=== PATIENT | female | born 1960 | race Caucasian/White ===

== ENCOUNTER → 2023-06-18 | Outpatient (CLI) | payer OTHER, SELFPAY ==
[2023-06-18 11:59] LABS: Absolute Lymphocyte Count 2.57 X10^3/uL (0.83-4.51); Absolute Neutrophil Count 3.7 X10^3/uL (2.0-7.7); Basophil# 0.08 X10^3/uL; Basophil% 1.1 % (0-1); Eosinophil# 0.31 X10^3/uL; Eosinophils% 4.2 % (0-5); Hematocrit 45.9 % (37-47); Hemoglobin 14.8 g/dL (12.0-15.0); Lymphocyte # 2.57 X10^3/ul (0.83-4.51); Lymphocyte % 34.6 % (19-41); Mean Corp Hgb Conc 32.2 g/dL (32-36); Mean Corpuscular Hgb 33.9 pg (27.0-32.0); Mean Corpuscular Volume 105.3 fL (81-99); Mean Platelet Vol. 10.9 fl (6.2-12.0); Monocyte# 0.75 X10^3/uL; Monocyte% 10.1 % (0-10); NRBC Flagged by Analyzer 0 % (0-5); Neutrophil % 49.7 % (47-70); Platelet Count 244 K/mm3 (150-450); RBC Distribution Width CV 13.8 % (11.6-14.6); RBC Distribution Width SD 54.3 fl (35.1-43.9); Red Blood Count 4.36 M/mm3 (4.2-5.4); White Blood Count 7.4 K/mm3 (4.4-11.0)
[2023-06-18 12:49] LABS: ALB/GLOB Ratio 0.9 RATIO (0.9-2.4); AST(SGOT) 30 U/L (15-37); Alanine Aminotransfer ALT/SGPT 33 U/L (13-56); Albumin, Serum 3.7 g/dL (3.2-5.0); Alkaline Phosphatase 59 U/L (45-117); Anion Gap 7 (5-15); BUN 18 mg/dL (7-18); BUN/Creat Ratio 23.1 RATIO (10-20); Calcium,Total 9.2 mg/dL (8.5-10.1); Chloride 109 mmol/L (98-107); Cholesterol 182 mg/dL (200); Creatinine, Serum 0.78 mg/dL (0.55-1.02); EST Glomerular Filtration Rate 79 mL/min (>60); Est Glom Filt Rate - Afr Amer 96 mL/min (>60); Globulin 4.2 g/dL (2.2-4.2); Glucose 118 mg/dL (74-106); High Density Lipoprotein 70 mg/dL; Magnesium 2.2 mg/dL (1.6-2.6); Potassium 4.3 mmol/L (3.5-5.1); Protein, Total 7.9 g/dL (6.4-8.2); Sodium Level 140 mmol/L (136-145); Triglycerides 326 mg/dL; Very Low Density Lipoprotein 65 mg/dL (5-40)
== END | disposition home or self-care (01) ==
LOC: BIMLAB 08:32
PROVIDERS: PCP Internal Medicine; Referring Provider Internal Medicine; Visit Provider Internal Medicine
DX: M79.661 Pain in right lower leg (principal); Z13.6 Encounter for screening for cardiovascular disorders
CPT/HCPCS: 36415; 80053; 80061; 83735; 85025

== ENCOUNTER → 2023-07-13 | Outpatient (CLI) | payer OTHER, SELFPAY ==
--- NOTE | 2023-07-13 14:53 | ART_ITS ---
Reason For Study: calf pain Procedure A bilateral lower extremity continuous wave Doppler with analog waveform analysis and ankle brachial indexes. Prelim called to [facility] at Dr. Rosas's office. Left Segmental Pressures Left brachial= 194mmHg. Left posterior tibial artery = 175mmHg. Left dorsalis pedis artery = 190mmHg. The left dorsalis pedis waveforms are biphasic. The left posterior tibial artery waveforms are biphasic. Right Segmental Pressures Right brachial= 199mmHg. Right posterior tibial artery = 97mmHg. Right dorsalis pedis artery = 100mmHg. The right dorsalis pedis waveforms are monophasic. The right posterior tibial artery waveforms are monophasic. Indices The right ankle brachial index by the posterior tibial artery is .49. The right ankle brachial index by the dorsalis pedis is .5. The left ankle brachial index by the posterior tibial artery is .88. The left ankle brachial index by the dorsalis pedis is .95. VL/Ankle Brachial Index Interpretation Summary Right CARLEY 0.5, severe arterial insufficiency. Doppler/PVR waveforms of the righ t ankle severely diminished at rest. Left CARLEY 0.95, mild arterial insufficiency. Doppler/PVR waveforms of the left a nkle mildly diminished at rest. Ordering Physician: Kaleigh Rosas Performed By: Mueksh Palacios, RVT
== END | disposition home or self-care (01) ==
PROVIDERS: PCP Internal Medicine; Referring Provider Internal Medicine; Visit Provider Internal Medicine
DX: M79.661 Pain in right lower leg (principal)
CPT/HCPCS: 93922

== ENCOUNTER 2023-12-16 16:43 | Observation (INO) | payer OTHER, SELFPAY ==
[2023-12-16 16:44] VITALS: BP 183/95; PULSE 87; RESP 18; TEMP 37.1; O2SAT 98; BMI 16.5
[2023-12-16 17:24] LABS: Absolute Lymphocyte Count 1.47 X10^3/uL (0.83-4.51); Absolute Neutrophil Count 13.3 X10^3/uL (2.0-7.7); Basophil# 0.07 X10^3/uL; Basophil% 0.4 % (0-1); Eosinophil# 0.04 X10^3/uL; Eosinophils% 0.3 % (0-5); Hematocrit 39.9 % (37-47); Hemoglobin 13.1 g/dL (12.0-15.0); Lymphocyte # 1.47 X10^3/ul (0.83-4.51); Lymphocyte % 9.3 % (19-41); Mean Corp Hgb Conc 32.8 g/dL (32-36); Mean Corpuscular Hgb 33.4 pg (27.0-32.0); Mean Corpuscular Volume 101.8 fL (81-99); Mean Platelet Vol. 10.6 fl (6.2-12.0); Monocyte# 0.84 X10^3/uL; Monocyte% 5.3 % (0-10); NRBC Flagged by Analyzer 0 % (0-5); Neutrophil # 13.33 X10^3/uL (2.7-7.7); Neutrophil % 84.3 % (47-70); Platelet Count 232 K/mm3 (150-450); RBC Distribution Width CV 13.7 % (11.6-14.6); RBC Distribution Width SD 51.3 fl (35.1-43.9); Red Blood Count 3.92 M/mm3 (4.2-5.4); White Blood Count 15.8 K/mm3 (4.4-11.0)
[2023-12-16 17:33] LABS: AST(SGOT) 25 U/L (15-37); Alanine Aminotransfer ALT/SGPT 34 U/L (13-56); Albumin, Serum 3.9 g/dL (3.2-5.0); Alkaline Phosphatase 65 U/L (45-117); Anion Gap 10 (5-15); BUN 20 mg/dL (7-18); BUN/Creat Ratio 23.2 RATIO (10-20); Calcium,Total 9.5 mg/dL (8.5-10.1); Chloride 105 mmol/L (98-107); Creatinine, Serum 0.86 mg/dL (0.55-1.02); EST Glomerular Filtration Rate 70 mL/min (>60); Est Glom Filt Rate - Afr Amer 85 mL/min (>60); Estimated Creatinine Clearance 47.13 ml/min; Globulin 3.8 g/dL (2.2-4.2); Glucose 110 mg/dL (74-106); Potassium 3.9 mmol/L (3.5-5.1); Protein, Total 7.7 g/dL (6.4-8.2); Sodium Level 138 mmol/L (136-145)
[2023-12-16 18:44] VITALS: BP 149/117; PULSE 90; RESP 17; TEMP 36.3; O2SAT 100
[2023-12-16 20:00] VITALS: BP 124/93; PULSE 121; RESP 18; O2SAT 98
--- NOTE | 2023-12-16 20:12 | CT_ITS ---
STUDY: CT ABDOMEN AND PELVIS WITH CONTRAST REASON FOR EXAM: Female, 63 years old. abdominal pain RADIATION DOSAGE (If Supplied By Facility): CTDIvol = ( 8.08 ) mGy, DLP = ( 285.40 ) mGycm TECHNIQUE: Transaxial images were obtained from the dome of the diaphragm to the symphysis pubis without oral contrast. IV 75mL Isovue-370 was administered. Sagittal and coronal images were reconstructed. Individualized dose optimization techniques were used for this CT. COMPARISON: None. FINDINGS: Small calcified granuloma in right lower lobe. The visualized portions of the heart are within normal limits. Mild ascites within the right subphrenic and left subphrenic spaces Normal liver. Normal gallbladder and extrahepatic biliary system. Normal spleen. Normal pancreas. Normal bilateral adrenal glands. Normal right kidney. Normal left kidney. Normal visualized stomach. There is concentric thickening of the delgado of multiple loops of mid to distal small bowel with thickening of the folds in association with an ahaustral appearance of the ascending and transverse colon most consistent with ileocolitis possibly Crohn''s disease. There is mild diffuse mesenteric edema and small amount of ascites within the right paracolic gutter and to a lesser extent on the left . There is mild dilatation of the appendix and the possibility of early changes of acute appendicitis not entirely excluded Atherosclerotic changes of the aorta without evidence for aneurysm. Normal inferior vena cava. Normal retroperitoneum. Normal urinary bladder. Normal abdominal wall. Lumbar spine demonstrates degenerative change. Grade 1 spondylolisthesis at L4-5 CT/Abdomen/Pelvis W IV Cont ONLY IMPRESSION: Findings which are most consistent with the ileal colitis possibly Crohn''s disease with associated mild mesenteric edema and ascites The appendix appears mildly dilated and coexisting early changes of acute appendicitis cannot be entirely excluded Clinical correlation is recommended Electronically Signed: Delgado Simpson MD at 21:39 EDT ,
--- NOTE | 2023-12-16 20:20 | EDS_ITS ---
HPI History of Present Illness Chief Complaint: Abd Pain Narrative Narrative: Chief complaint and HPI: Abdominal pain. 63-year-old female with history of HTN, CKD, tobacco abuse, PAD presents for evaluation of abdominal pain. Patient states for the past week she has had intermittent diarrhea. She states this morning she woke up with abdominal pain that has progressively worsened. She endorses nausea and vomiting. Describes the pain as cramping. Located mostly in the lower abdomen. Denies any URI symptoms, chest pain, shortness of breath, dysuria, hematuria. Denies any bloody bowel movements. Endorses decreased p.o. intake. Not on blood thinners. Denies any abdominal surgeries. Review of systems: See HPI Medications: As listed on the chart Allergies: As listed on the chart PFSH: Per chart Vital signs: As listed on the chart. Reviewed. Physical exam: Gen: A&O x3 Head: Normocephalic, atraumatic Eyes: No sclera icterus, conjunctiva clear ENT: Dry mucous membranes Neck: Trachea midline, No JVD CV: RRR, no murmurs, no peripheral edema Resp: Lungs CTA BL, no w/r/c GI: Abd soft, non-distended, tender to palpation in the bilateral lower quadrant, + voluntary guarding, no rebound or rigidity Musc: Full ROM, no deformity Skin: Warm, dry Neuro: Alert, oriented, grossly intact, sensation intact Psych: Cooperative [facility] Medical History CKD (chronic kidney disease), stage II Heavy alcohol use Tobacco use Hypertension Atherosclerosis of right lower extremity with intermittent claudication Left carotid bruit PAD (peripheral artery disease) Gout Home Medications ?Medication ?Instructions ?Recorded ?Last Taken ?Type B-complex with vitamin C 1 cap PO DAILY 06/16/23 Unknown History calcium carbonate (Calcium 600) 600 mg PO DAILY 06/16/23 Unknown History potassium chloride 20 mEq oral 20 meq PO DAILY 06/16/23 Unknown History packet aspirin 81 mg tablet,delayed 81 mg PO DAILY #30 tabs 07/29/23 Unknown Rx release (Adult Aspirin Regimen) ibuprofen 200 mg tablet 400 mg PO Q6H PRN pain 07/29/23 Unknown History lisinopril 10 mg tablet 10 mg PO DAILY #90 tabs 09/23/23 Unknown Rx rosuvastatin 20 mg tablet 20 mg PO DAILY #30 tabs 10/20/23 Unknown Rx Allergy/AdvReac Type Severity Reaction Status Date / Time No Known Allergies Allergy Verified 12/16/23 16:44 Family History Grandmother Diabetes Mother Kidney disease Heart disease Father Heart disease Surgical History No pertinent past surgical history Social History (Updated 12/17/23 @ 00:[address] Samreen Dunham MD) household members: spouse housing: house current occupational status: employed current occupation: [employer] Smoking Status: Current every day smoker tobacco type: cigarettes Tobacco: How many years used: 44 Electronic Cigarette Use: not used alcohol intake: current alcohol intake frequency: 0-2 drinks per day Alcohol type: hard liquor details: Drinks 2 vodka drinks daily, potentially more. substance use type: does not use what type of physical activity do you participate in: walking and weight training frequency: 3-4 times per week seatbelt use: always do you feel safe at home: Yes EXAM Physical Exam Const Vital Signs: 12/16/23 16:44 12/16/23 18:44 12/16/23 20:00 Temperature 98.7 F 97.3 F L Temperature Source Temporal Oral Pulse Rate 87 90 121 H Respiratory Rate 18 17 18 Blood Pressure 183/95 H 149/117 H 124/93 H Blood Pressure Mean 124 127 103 Pulse Ox 98 100 98 Oxygen Delivery Method Room Air Room Air Room Air 12/16/23 22:00 12/16/23 23:30 12/16/23 23:45 Temperature Temperature Source Pulse Rate 98 79 83 Respiratory Rate 30 H 24 H 21 H Blood Pressure 112/81 H 111/76 114/73 Blood Pressure Mean 91 87 86 Pulse Ox 96 98 96 Oxygen Delivery Method 12/17/23 00:00 Temperature Temperature Source Pulse Rate 80 Respiratory Rate 26 H Blood Pressure 121/68 H Blood Pressure Mean 84 Pulse Ox 96 Oxygen Delivery Method MDM MDM MDM Narrative Medical decision making narrative: 63-year-old female presents for evaluation of abdominal pain, diarrhea, nausea/vomiting. She is tender to palpation on physical exam with positive guarding. Differential diagnosis includes but is not limited to gastroenteritis, diverticulitis, appendicitis, pancreatitis, viral illness, UTI, electrolyte abnormality, BLANK. NS bolus, morphine, Zofran ordered for symptoms. Abdominal pain workup ordered including CT abdomen and pelvis. CBC with a leukocytosis of 15.8. No anemia. CMP without electrolyte abnormality or BLANK. Lactic acidosis 3.6. Patient receiving fluids. No transaminitis. Lipase unremarkable. UA positive for ketones but negative for UTI. CT abdomen pelvis shows findings most consistent with ileocolitis possibly Crohn's disease. Patient has no history of inflammatory bowel disease. There is associated mild mesenteric edema and ascites. The appendix appears mildly dilated and coexisting early changes of acute appendicitis cannot be entirely excluded. Given these findings, Zosyn started as well as another NS bolus. General surgery was contacted given the patient's findings on CT. I spoke with Dr. Barkley. Agrees with colitis however cannot officially rule out mesenteric ischemia especially with patient's abdominal pain and lactic acidosis. Recommended transfer with continued monitoring with surgery and GI. Patient was updated of all results and findings. She confirmed understanding. [facility] transfer line was contacted and patient was discussed. They would like opinion of general surgery given that no beds are available in their hospital at this time. I spoke with general surgeon Dr. Norman. Given the bed situation at [facility], she would like me to talk to our general surgeon to see if patient can be admitted here with transfer at a future date if needed. I recontacted Dr. Barkley, she is okay with medical admission at [place] as long as lactic acid and abdominal pain is improving. She would like me to get the opinion of radiology on possible mesenteric ischemia. Radiology was contacted and imaging was discussed. Patient is a vasculopath however no concerns for mesenteric ischemia at this time given that celiac and SMA appear patent. On reevaluation, patient's abdominal pain is improving. Her lactic acid has resolved. Patient was discussed with Dr. Bella with the hospitalist. She excepted admission. She did update Dr. Barkley on all the results. Impression: 1. Ileocolitis 2. Mild mesenteric edema and ascites 3. Possible early appendicitis 4. Lactic acidosis, resolved 5. Dehydration Lab Data Labs: Laboratory Results - last 24 hr 12/16/23 12/16/23 12/16/23 17:02 20:25 21:25 WBC 15.8 H RBC 3.92 L Hgb 13.1 Hct 39.9 MCV 101.8 H MCH 33.4 H MCHC 32.8 RDW Std Deviation 51.3 H RDW Coeff of Divya 13.7 Plt Count 232 MPV 10.6 Immature Gran % (Auto) 0.400 Neut % (Auto) 84.3 H Lymph % (Auto) 9.3 L Caroline % (Auto) 5.3 Eos % (Auto) 0.3 Baso % (Auto) 0.4 Absolute Neuts (auto) 13.3 H Absolute Lymphs (auto) 1.47 Nucleated RBC % 0 Sodium 138 Potassium 3.9 Chloride 105 Carbon Dioxide 23.0 Anion Gap 10 BUN 20 H Creatinine 0.86 Estim Creat Clear Calc 47.13 Est GFR (MDRD) Af Amer 85 Est GFR (MDRD) Non-Af 70 BUN/Creatinine Ratio 23.2 H Glucose 110 H Lactic Acid 3.6 H* Calcium 9.5 Phosphorus 3.3 Magnesium 1.6 Total Bilirubin 0.50 AST 25 ALT 34 Alkaline Phosphatase 65 Total Protein 7.7 Albumin 3.9 Globulin 3.8 Albumin/Globulin Ratio 1.0 Lipase 27 Urine Color Yellow Urine Clarity Clear Urine pH 6.0 Ur Specific [place] 1.010 Urine Protein 15 H Urine Glucose (UA) Normal Urine Ketones 15 H Urine Occult Blood Negative Urine Nitrite Negative Urine Bilirubin Negative Urine Urobilinogen Normal Ur Leukocyte Esterase 25 H Urine RBC 0 SEEN Urine WBC 0-5 SEEN Ur Squamous Epith Cells 0 SEEN Urine Bacteria 0 SEEN Urine Mucus 0 SEEN 12/16/23 23:28 WBC RBC Hgb Hct MCV MCH MCHC RDW Std Deviation RDW Coeff of Divya Plt Count MPV Immature Gran % (Auto) Neut % (Auto) Lymph % (Auto) Caroline % (Auto) Eos % (Auto) Baso % (Auto) Absolute Neuts (auto) Absolute Lymphs (auto) Nucleated RBC % Sodium Potassium Chloride Carbon Dioxide Anion Gap BUN Creatinine Estim Creat Clear Calc Est GFR (MDRD) Af Amer Est GFR (MDRD) Non-Af BUN/Creatinine Ratio Glucose Lactic Acid 1.1 Calcium Phosphorus Magnesium Total Bilirubin AST ALT Alkaline Phosphatase Total Protein Albumin Globulin Albumin/Globulin Ratio Lipase Urine Color Urine Clarity Urine pH Ur Specific [place] Urine Protein Urine Glucose (UA) Urine Ketones Urine Occult Blood Urine Nitrite Urine Bilirubin Urine Urobilinogen Ur Leukocyte Esterase Urine RBC Urine WBC Ur Squamous Epith Cells Urine Bacteria Urine Mucus Radiography Diagnostic Testing: Clinical Impression(s) from Imaging Studies Abdomen/Pelvis CT 12/16/23 20:12 IMPRESSION: Findings which are most consistent with the ileal colitis possibly Crohn''s disease with associated mild mesenteric edema and ascites The appendix appears mildly dilated and coexisting early changes of acute appendicitis cannot be entirely excluded Clinical correlation is recommended Electronically Signed: Delgado Simpson MD at 21:39 EDT Reading Location ID and State: [facility] / [place] Tel , Service support , Discharge Plan Disposition Disposition: Acute Care Hospital [facility] Discharge Date/Time: 12/17/23 01:38
[2023-12-16] MEDS: 0.9% Normal Saline (1000mL) 1,000 ML 1000 ML IV (20:22)
[2023-12-16] MEDS: Ondansetron 4 MG/2 ML Vial IV (20:23)
[2023-12-16] MEDS: Morphine 4 MG/ML Syringe IV ×2 (20:23→22:36)
[2023-12-16 20:46] LABS: Lipase 27 U/L (13-75)
[2023-12-16 21:01] LABS: Lactic Acid 3.6 mmol/L (0.4-1.9)
[2023-12-16 21:35] LABS: Bacteria 0 SEEN /hpf (None Seen); Mucous, Urine 0 SEEN /hpf (<or=2+); Red Blood Cells-Urine 0 SEEN /hpf (0-5); Squamous Epithelial Cells - UA 0 SEEN /hpf (5-10)
[2023-12-16 21:45] LABS: Color, Urine Yellow (Yellow); Glucose, Dipstick Normal (Normal); Ketone-Dipstick 15 mg/dl (Negative); Leukocyte Esterase-Dipstick 25 /ul (Negative); Nitrite-Dipstick Negative (Negative); Occult Blood-Urine Negative /ul (Negative); Protein-Dipstick 15 mg/dl (Negative); Urine Bilirubin Dipstick Negative (Negative); Urine Clarity Clear (Clear); Urine Urobilinogen Normal (Normal)
[2023-12-16 21:54] LABS: White Blood Cells 0-5 SEEN /hpf (0-5)
[2023-12-16 22:00] VITALS: BP 112/81; PULSE 98; RESP 30; O2SAT 96
[2023-12-16] MEDS: Piperacil/Tazobactam 3.375 GM in 0.9% Normal Saline (50mL MB+) 50 ML IV (22:36)
[2023-12-16] MEDS: 0.9% Normal Saline (1000mL) 1,000 ML 999 ML IV (23:22)
[2023-12-16 23:30] VITALS: BP 111/76; PULSE 79; RESP 24; O2SAT 98
[2023-12-16 23:45] VITALS: BP 114/73; PULSE 83; RESP 21; O2SAT 96
[2023-12-16 23:57] LABS: Lactic Acid 1.1 mmol/L (0.4-1.9)
[2023-12-17] VITALS (8 sets, daily range): BP systolic 119–159; BP diastolic 68–94; PULSE 79–97; RESP 15–26; TEMP 36.6–37.3; O2SAT 95–98; BMI 16.5
--- NOTE | 2023-12-17 00:12 | HP.PCM.HOS_ITS ---
HPI - General General Date of Admission: 12/17/23 Date of Service: 12/17/23 Chief Complaint: Abdominal pain. HPI Narrative The patient is a 63 y/o F w/ PMHx: Tobacco use, Heavy EtOH use/EtOH abuse, HTN, CKD stage II per GFR trending, Known L carotid bruit w/ pending carotid US outpatient, RLE PAD, Gout, Severe protein calorie malnutrition who presents to the [facility] ED initially on 12/16/23 with history of abdominal discomfort with intermittent diarrhea over the last week awaking on morning on day prior with pain which is since worsened with associated nausea and emesis more tender in the bilateral lower quadrants with no rebound or guarding prompting eventual ED evaluation to be cautious. Patient reporting pain 7/10 in severity and noted to have initially reported 8/10 in severity initially upon ED arrival. Workup in the ED included T98.7, heart rate 87, BP 193/95, respiratory rate 18, 90% on room air with transient heart rate increased to 121 with most recent repeat vitals heart rate 98, BP 112/81, respiratory rate 30, 96% on room air, CBC with WBC 15.8, human 13.1, platelet 232 with left shift, CMP with BUN/creatinine 20/0.86, GFR 70, glucose 110, hepatic profile not marked appearing, lipase 27, lactic acid initial 3.6 with repeat lactic acid 1.1, urinalysis not marked appearing, CT abdomen and pelvis with contrast with concentric thickening of the delgado of multiple loops of mid to distal small bowel with thickening of the folds in association with an a hostile appearance of the ascending and transverse colon consistent possibly with ileocolitis with mild diffuse mesenteric edema and a small amount of ascites within the right paracolic gutter, mild dilatation of the appendix and possibility of early changes of acute appendicitis cannot be entirely excluded. In the ED patient ministered 2 L normal saline, morphine 4 mg IV x 2, Zofran 4 mg IV x 1 as well as IV Zosyn. Per discussion with ED they did review imaging also with Radiology directly and went over all the vasculature to assure no concerns given her PAD history. [facility] Medical History CKD (chronic kidney disease), stage II Heavy alcohol use Tobacco use Hypertension Atherosclerosis of right lower extremity with intermittent claudication Left carotid bruit PAD (peripheral artery disease) Gout Home Medications ?Medication ?Instructions ?Recorded ?Last Taken ?Type B-complex with vitamin C 1 cap PO DAILY 06/16/23 Unknown History calcium carbonate (Calcium 600) 600 mg PO DAILY 06/16/23 Unknown History potassium chloride 20 mEq oral 20 meq PO DAILY 06/16/23 Unknown History packet aspirin 81 mg tablet,delayed 81 mg PO DAILY #30 tabs 07/29/23 Unknown Rx release (Adult Aspirin Regimen) ibuprofen 200 mg tablet 400 mg PO Q6H PRN pain 07/29/23 Unknown History lisinopril 10 mg tablet 10 mg PO DAILY #90 tabs 09/23/23 Unknown Rx rosuvastatin 20 mg tablet 20 mg PO DAILY #30 tabs 10/20/23 Unknown Rx Allergy/AdvReac Type Severity Reaction Status Date / Time No Known Allergies Allergy Verified 12/16/23 16:44 Family History Grandmother Diabetes Mother Kidney disease Heart disease Father Heart disease Surgical History No pertinent past surgical history Social History (Updated 12/17/23 @ 00:[address] Samreen Dunham MD) household members: spouse housing: house current occupational status: employed current occupation: [employer] Smoking Status: Current every day smoker tobacco type: cigarettes Tobacco: How many years used: 44 Electronic Cigarette Use: not used alcohol intake: current alcohol intake frequency: 0-2 drinks per day Alcohol type: hard liquor details: Drinks 2 vodka drinks daily, potentially more. substance use type: does not use what type of physical activity do you participate in: walking and weight training frequency: 3-4 times per week seatbelt use: always do you feel safe at home: Yes ROS ROS Narrative Admission Review of Systems: CONSTITUTIONAL: No weight loss, fever, chills, + weakness or fatigue. HEENT: Eyes: No visual loss, blurred vision, double vision or yellow sclerae. Ears, Nose, Throat: No hearing loss, sneezing, congestion, runny nose or sore throat. SKIN: No rash or itching, lesions, wounds. CARDIOVASCULAR: No chest pain, chest pressure or chest discomfort, palpitations, edema, orthopnea, syncopal events. RESPIRATORY: No shortness of breath, cough or sputum, wheezing, hemoptysis. GASTROINTESTINAL: + anorexia, nausea, vomiting, diarrhea, abdominal pain. No melena, BRBPR. GENITOURINARY: No dysuria, frequency, urgency or retention. NEUROLOGICAL: No headache, dizziness, syncope, paralysis, ataxia, numbness or tingling in the extremities, focal weakness, change in bowel or bladder control, seizure. MUSCULOSKELETAL: + muscle, back pain, joint pain or stiffness. HEMATOLOGIC: No anemia, bleeding or bruising. LYMPHATICS: No enlarged nodes. No history of splenectomy. PSYCHIATRIC: No history of depression or anxiety. ENDOCRINOLOGIC: No reports of sweating, cold or heat intolerance. No polyuria or polydipsia. ALLERGIES: No history of asthma, hives, eczema or rhinitis. Vital Signs Vital Signs Vital Signs: 12/16/23 16:44 12/16/23 18:44 12/16/23 20:00 Temperature 98.7 F 97.3 F L Temperature Source Temporal Oral Pulse Rate 87 90 121 H Respiratory Rate 18 17 18 Blood Pressure 183/95 H 149/117 H 124/93 H Blood Pressure Mean 124 127 103 Pulse Ox 98 100 98 Oxygen Delivery Method Room Air Room Air Room Air 12/16/23 22:00 12/16/23 23:30 12/16/23 23:45 Temperature Temperature Source Pulse Rate 98 79 83 Respiratory Rate 30 H 24 H 21 H Blood Pressure 112/81 H 111/76 114/73 Blood Pressure Mean 91 87 86 Pulse Ox 96 98 96 Oxygen Delivery Method 12/17/23 00:00 Temperature Temperature Source Pulse Rate 80 Respiratory Rate 26 H Blood Pressure 121/68 H Blood Pressure Mean 84 Pulse Ox 96 Oxygen Delivery Method Weight Weight: 99 lb 9.6 oz Body Mass Index (BMI) 16.5 Physical Exam Narrative Physical Examination: General: Awake, alert, oriented x 3 and cooperative, seated upright in the ED bed in no apparent distress, notes nausea abated, abdominal pain primarily with palpation now, rates 5-6/10. Skin: Normal color, normal turgor, no icterus, no cyanosis except occasional stage ecchymoses, bilateral lower extremity venous stasis skin changes.. HEENT: AT/NC, EOMI, PERRLA, dry MM, no carotid bruits or JVD noted. Lungs: Diminished, greater bases, appropriate effort, no rales, ronchi or wheezing. Heart: Regular rate and rhythm; no gallop, rub audible. Abdomen: Soft, cachectic habitus, discomfort to palpation of bilateral lower quadrant with some voluntary guarding but no rebound, nondistended, mildly hyperactive BS, no appreciated HSM but difficult exam given pain. Extremities: No cyanosis, no clubbing, no marked peripheral edema. Evidence of muscle wasting. See skin. Neurological: Patient awake, alert, oriented as noted, cognitive function intact; pupils equally reactive to light and accommodation, cranial nerves gross normal, moving all 4 extremities, no focal deficits, strength moderately to severely globally Steffi secondary to acute presentation complaints. Psychiatric: Affect appears fatigued, no acute evidence of depressive or anxiety feelings. Results Lab / Micro Data 12/16/23 17:02 12/16/23 17:02 Labs: Laboratory Results - last 24 hr 12/16/23 17:02: WBC 15.8 H, RBC 3.92 L, Hgb 13.1, Hct 39.9, MCV 101.8 H, MCH 33.4 H, MCHC 32.8, RDW Std Deviation 51.3 H, RDW Coeff of Divya 13.7, Plt Count 232, MPV 10.6, Immature Gran % (Auto) 0.400, Neut % (Auto) 84.3 H, Lymph % (Auto) 9.3 L, Charles % (Auto) 5.3, Eos % (Auto) 0.3, Baso % (Auto) 0.4, Absolute Neuts (auto) 13.3 H, Absolute Lymphs (auto) 1.47, Nucleated RBC % 0, Sodium 138, Potassium 3.9, Chloride 105, Carbon Dioxide 23.0, Anion Gap 10, BUN 20 H, Creatinine 0.86, Estim Creat Clear Calc 47.13, Est GFR (MDRD) Af Amer 85, Est GFR (MDRD) Non-Af 70, BUN/Creatinine Ratio 23.2 H, Glucose 110 H, Calcium 9.5, Total Bilirubin 0.50, AST 25, ALT 34, Alkaline Phosphatase 65, Total Protein 7.7, Albumin 3.9, Globulin 3.8, Albumin/Globulin Ratio 1.0, Lipase 27 12/16/23 20:25: Lactic Acid 3.6 H* 12/16/23 21:25: Urine Color Yellow, Urine Clarity Clear, Urine pH 6.0, Ur Specific [place] 1.010, Urine Protein 15 H, Urine Glucose (UA) Normal, Urine Ketones 15 H, Urine Occult Blood Negative, Urine Nitrite Negative, Urine Bilirubin Negative, Urine Urobilinogen Normal, Ur Leukocyte Esterase 25 H, Urine RBC 0 SEEN, Urine WBC 0-5 SEEN, Ur Squamous Epith Cells 0 SEEN, Urine Bacteria 0 SEEN, Urine Mucus 0 SEEN 12/16/23 23:28: Lactic Acid 1.1 Imaging Radiology Impression Abdomen/Pelvis CT 12/16/23 20:12 IMPRESSION: Findings which are most consistent with the ileal colitis possibly Crohn''s disease with associated mild mesenteric edema and ascites The appendix appears mildly dilated and coexisting early changes of acute appendicitis cannot be entirely excluded Clinical correlation is recommended Electronically Signed: Delgado Simpson MD at 21:39 EDT Reading Location ID and State: [facility][note 3] / [place] Tel , Service support , Assessment & Plan Assessment/Plan (1) Ileocolitis: PLAN: Plan The patient is a 63 y/o F w/ PMHx: Tobacco use, Heavy EtOH use/EtOH abuse, HTN, CKD stage II per GFR trending, Known L carotid bruit w/ pending carotid US outpatient, RLE PAD, Gout, Severe protein calorie malnutrition who presents to the [facility] ED initially on 12/16/23 with history of abdominal discomfort with intermittent diarrhea over the last week awaking on morning on day prior with pain which is since worsened with associated nausea and emesis more tender in the bilateral lower quadrants with no rebound or guarding prompting eventual ED evaluation to be cautious. #1. N/V/D with associated abdominal discomfort with CT scan concerning for ileocolitis with diffuse mesenteric edema and small amount of ascites with mild dilatation of the appendix and concern for possibility of acute appendicitis with initial lactic acidosis, improved in the ED with IV fluids, possibility of underlying IBD: Will admit to medical surgical floor, will maintain on IV fluids, will obtain C. difficile and enteric pathogens to be cautious, will obtain COVID PCR also be cautious, will continue IV Zosyn therapy, will continue to trend CBC and CMP, will have pain regimen and as needed antiemetic regimen, will maintain on IV PPI, will maintain on clear liquids until clinically improving with transition once improving, given concern on read for possibility of Crohn's disease will request gastroenterology involvement but will defer usage of steroids initially pending evaluation, will continue surgery consultation initiated per ED given concern for possibility of early appendicitis also. #2. Hypertension, uncontrolled, possibly pain related: Continue home regimen including lisinopril, as noted given significant elevated BP may require additional regimen but this is in the setting of acute pain therefore at this time we will continue with PRN hydralazine but continue to monitor for additional regimen adjustment/addition. #3. Left carotid bruit: Noted carotid bruit per vascular surgery at visits, last visit noted 09/2023, unfortunately patient has yet to obtain the carotid ultrasound that has been ordered, maintained on aspirin, statin, hypertensive regimen, encourage appropriate follow-up outpatient with studies as noted/previously arranged #4. PAD right lower extremity with intermittent claudication: CARLEY/PVR 07/13/2023 with right CARLEY 0.5 with a monophasic waveform, left CARLEY with 0.95 biphasic waveform, initiated on aspirin as well as high intensity statin and Pletal with planned duration per that note for at least 8 to 12 weeks however unfortunately patient had significant diarrhea associated with Pletal and stopped taking this but continue the aspirin and lovastatin with improvement in symptoms. Encourage continued outpatient follow-up with vascular surgery as previously arranged. #5. Heavy alcohol use/EtOH abuse: Patient notes routine consumption of 2 vodka drinks per day. Will maintain on CIWA protocol, MVI, thiamine and folic acid. Magnesium and phosphorus levels requested. Case management consulted. #6. Chronic Kidney Disease Stage II per GFR trending: Admission BUN/Cr 20/0.86, GFR 70 which has been similar to prior, baseline renal function 0.7-0.8, repeat BMP in AM. #7. Tobacco Abuse: Encouraged cessation, inpatient consultation per RT, NR if desired. #8. Gout: Noted in history, not on any chronic regimen per current list, encourage continued outpatient follow-up as previously arranged. #9. Severe protein calorie malnutrition: Significantly reduced BMI of 16.6, concern for underlying alcohol abuse is noted which likely is contributing as well as possibility of underlying COPD that been undiagnosed given ongoing tobacco use prolonged history, magnesium and phosphorus levels requested, nutrition consulted for recommendations. #10. DVT prophylaxis: Lovenox. #11. CODE status: Full Code. Charges/Coding Visit Charges Inpatient E&M: 41708 Init Hosp L3
[2023-12-17 00:27] LABS: Reflex Lactate? Y
[2023-12-17 00:52] LABS: Magnesium 1.6 mg/dL (1.6-2.6); Phosphorus 3.3 mg/dL (2.5-4.9)
[2023-12-17] MEDS: 0.9% Normal Saline (1000mL) 1,000 ML 100 ML IV (02:30)
[2023-12-17] MEDS: 0.9% Saline Lock 10 ML Syringe IV ×3 (02:30→21:30)
[2023-12-17] MEDS: Pantoprazole Sodium 40 MG in 0.9% Normal Saline (100mL MB+) 100 ML 330 MG IV ×3 (02:30→21:31)
[2023-12-17] MEDS: Morphine 2 MG/ML Syringe IV ×4 (02:42→20:16)
[2023-12-17] MEDS: Piperacil/Tazobactam 3.375 GM in 0.9% Normal Saline (50mL MB+) 50 ML IV ×3 (06:48→22:51)
--- NOTE | 2023-12-17 07:53 | CON.PCM.SX_ITS ---
Assessment & Plan Assessment/Plan (1) Ileocolitis: PLAN: Plan Did review CT abdomen pelvis patient does have inflammation and thickening of the distal small bowel as well as right side of the colon. Discussed with patient that there be no plans for any surgical intervention for the appendix as the rest the tissue is also inflamed. Will defer management to GI. Patient's labs currently pending. Patient is on Zosyn. Patient has no further question this time. Dr. Rivera will be rounding for me over the weekend. Kesha Venegas M.D. Pager: [phone] [facility] [address] [place] [address], Outpatient Pavilion, [address] [place] [address] Office: [phone] HPI Consult Data Date of Consult: 12/17/23 HPI Narrative HPI Narrative: AVIS BROWN, is a 63 F who presents to the ER due to abdominal pain. Patient states pain started early a.m. Patient states she has been having some diarrhea some normal bowel movements as well. Patient has had some nausea as well. Patient is never had previous colonoscopy. Patient denies any family history of inflammatory bowel disease. Patient CT abdomen pelvis showed inflammation of the distal small bowel as well as the right colon question possible appendicitis as well. Patient's white blood count is 15.8 on admission and her lactic acid was 3.6 after IV fluids it went down to 1.1. Patient denies any history of fear of food. Patient still rates her pain 7?8/10. PFSH Medical History CKD (chronic kidney disease), stage II Heavy alcohol use Tobacco use Hypertension Atherosclerosis of right lower extremity with intermittent claudication Left carotid bruit PAD (peripheral artery disease) Gout Home Medications ?Medication ?Instructions ?Recorded ?Last Taken ?Type B-complex with vitamin C 1 cap PO DAILY 06/16/23 Unknown History calcium carbonate (Calcium 600) 600 mg PO DAILY 06/16/23 Unknown History potassium chloride 20 mEq oral 20 meq PO DAILY 06/16/23 Unknown History packet aspirin 81 mg tablet,delayed 81 mg PO DAILY #30 tabs 07/29/23 Unknown Rx release (Adult Aspirin Regimen) ibuprofen 200 mg tablet 400 mg PO Q6H PRN pain 07/29/23 Unknown History lisinopril 10 mg tablet 10 mg PO DAILY #90 tabs 09/23/23 Unknown Rx rosuvastatin 20 mg tablet 20 mg PO DAILY #30 tabs 10/20/23 Unknown Rx Allergy/AdvReac Type Severity Reaction Status Date / Time No Known Allergies Allergy Verified 12/16/23 16:44 Family History Grandmother Diabetes Mother Kidney disease Heart disease Father Heart disease Surgical History No pertinent past surgical history Social History (Updated 12/17/23 @ 00:[address] Samreen Dunham MD) household members: spouse housing: house current occupational status: employed current occupation: [employer] Smoking Status: Current every day smoker tobacco type: cigarettes Tobacco: How many years used: 44 Electronic Cigarette Use: not used alcohol intake: current alcohol intake frequency: 0-2 drinks per day Alcohol type: hard liquor details: Drinks 2 vodka drinks daily, potentially more. substance use type: does not use what type of physical activity do you participate in: walking and weight training frequency: 3-4 times per week seatbelt use: always do you feel safe at home: Yes ROS Constitutional Constitutional: Reports anorexia; Denies chills ENT HEENT: Denies dysphagia Cardiovascular Cardiovascular: Denies chest pain Respiratory/Chest Respiratory/Chest: Denies productive cough Gastrointestinal Gastrointestinal: Reports abdominal pain, diarrhea and nausea Genitourinary Genitourinary: Denies dysuria Musculoskeletal Musculoskeletal: Denies joint swelling Integumentary Integumentary: Denies jaundice Neurologic Neurologic: Denies focal weakness Endocrine Endocrinology: Denies palpitations Hematologic/Lymphatic Hematologic/Lymphatic: Denies easy bleeding Physical Exam Const alert, oriented x3 and no apparent distress HEENT normocephalic and head/scalp atraumatic Resp normal respiratory effort Cardio regular rate GI soft to palpation; Negative for non-distended Palpation: tender LLQ and RLQ and guarding other (Voluntary) Extremity no clubbing, cyanosis or edema Neuro CN's II-XII intact bilaterally Psych mental status grossly normal Lab / Micro Data 12/16/23 17:02 12/16/23 17:02 Labs: Laboratory Results - last 24 hr 12/16/23 17:02: WBC 15.8 H, RBC 3.92 L, Hgb 13.1, Hct 39.9, MCV 101.8 H, MCH 33.4 H, MCHC 32.8, RDW Std Deviation 51.3 H, RDW Coeff of Divya 13.7, Plt Count 232, MPV 10.6, Immature Gran % (Auto) 0.400, Neut % (Auto) 84.3 H, Lymph % (Auto) 9.3 L, Cameron % (Auto) 5.3, Eos % (Auto) 0.3, Baso % (Auto) 0.4, Absolute Neuts (auto) 13.3 H, Absolute Lymphs (auto) 1.47, Nucleated RBC % 0, Sodium 138, Potassium 3.9, Chloride 105, Carbon Dioxide 23.0, Anion Gap 10, BUN 20 H, Creatinine 0.86, Estim Creat Clear Calc 47.13, Est GFR (MDRD) Af Amer 85, Est GFR (MDRD) Non-Af 70, BUN/Creatinine Ratio 23.2 H, Glucose 110 H, Calcium 9.5, Phosphorus 3.3, Magnesium 1.6, Total Bilirubin 0.50, AST 25, ALT 34, Alkaline Phosphatase 65, Total Protein 7.7, Albumin 3.9, Globulin 3.8, Albumin/Globulin Ratio 1.0, Lipase 27 12/16/23 20:25: Lactic Acid 3.6 H* 12/16/23 21:25: Urine Color Yellow, Urine Clarity Clear, Urine pH 6.0, Ur Specific [place] 1.010, Urine Protein 15 H, Urine Glucose (UA) Normal, Urine Ketones 15 H, Urine Occult Blood Negative, Urine Nitrite Negative, Urine Bilirubin Negative, Urine Urobilinogen Normal, Ur Leukocyte Esterase 25 H, Urine RBC 0 SEEN, Urine WBC 0-5 SEEN, Ur Squamous Epith Cells 0 SEEN, Urine Bacteria 0 SEEN, Urine Mucus 0 SEEN 12/16/23 23:28: Lactic Acid 1.1 Micro: Microbiology 12/17/23 01:03 Mucosa - Nose Respiratory Panel (PCR) - Final 12/17/23 01:03 Mucosa - Nose Coronavirus COVID-19 PCR - Final Imaging Radiology Impression Abdomen/Pelvis CT 12/16/23 20:12 IMPRESSION: Findings which are most consistent with the ileal colitis possibly Crohn''s disease with associated mild mesenteric edema and ascites The appendix appears mildly dilated and coexisting early changes of acute appendicitis cannot be entirely excluded Clinical correlation is recommended Electronically Signed: Delgado Simpson MD at 21:39 EDT , Charges/Coding Visit Charges Inpatient E&M: 13710 Init Hosp L3
[2023-12-17 08:29] LABS: Absolute Lymphocyte Count 0.79 X10^3/uL (0.83-4.51); Absolute Neutrophil Count 12.6 X10^3/uL (2.0-7.7); Basophil# 0.09 X10^3/uL; Basophil% 0.6 % (0-1); Hematocrit 36.4 % (37-47); Hemoglobin 11.9 g/dL (12.0-15.0); Lymphocyte # 0.79 X10^3/ul (0.83-4.51); Lymphocyte % 5.6 % (19-41); Mean Corp Hgb Conc 32.7 g/dL (32-36); Mean Corpuscular Hgb 33.2 pg (27.0-32.0); Mean Corpuscular Volume 101.7 fL (81-99); Mean Platelet Vol. 10.5 fl (6.2-12.0); Monocyte# 0.54 X10^3/uL; Monocyte% 3.8 % (0-10); NRBC Flagged by Analyzer 0 % (0-5); Neutrophil # 12.61 X10^3/uL (2.7-7.7); Neutrophil % 89.6 % (47-70); POSITIVE MORPHOLOGY YES; Platelet Count 176 K/mm3 (150-450); RBC Distribution Width CV 13.7 % (11.6-14.6); RBC Distribution Width SD 51.2 fl (35.1-43.9); Red Blood Count 3.58 M/mm3 (4.2-5.4); White Blood Count 14.1 K/mm3 (4.4-11.0)
[2023-12-17 08:42] LABS: Differential Indicated SCAN CRITERIA MET
[2023-12-17 09:13] LABS: ALB/GLOB Ratio 0.8 RATIO (0.9-2.4); AST(SGOT) 18 U/L (15-37); Alanine Aminotransfer ALT/SGPT 24 U/L (13-56); Albumin, Serum 2.7 g/dL (3.2-5.0); Alkaline Phosphatase 40 U/L (45-117); Anion Gap 7 (5-15); BUN 11 mg/dL (7-18); BUN/Creat Ratio 15.3 RATIO (10-20); Calcium,Total 8.4 mg/dL (8.5-10.1); Chloride 112 mmol/L (98-107); Creatinine, Serum 0.72 mg/dL (0.55-1.02); EST Glomerular Filtration Rate 87 mL/min (>60); Est Glom Filt Rate - Afr Amer 105 mL/min (>60); Globulin 3.5 g/dL (2.2-4.2); Glucose 123 mg/dL (74-106); Potassium 3.9 mmol/L (3.5-5.1); Protein, Total 6.2 g/dL (6.4-8.2); Sodium Level 140 mmol/L (136-145)
[2023-12-17] MEDS: Folic Acid 1 MG Tablet PO (09:41)
[2023-12-17] MEDS: Lisinopril 10 MG Tablet PO (09:41)
[2023-12-17] MEDS: Aspirin E.C. 81 MG Tablet PO (09:41)
[2023-12-17] MEDS: Thiamine Hydrochloride 100 MG Tablet PO (09:41)
[2023-12-17] MEDS: Enoxaparin 40 MG/0.4 ML Syringe SC (09:42)
[2023-12-17] MEDS: Potassium Chloride Oral Tablet 20 MEQ PO (09:42)
--- NOTE | 2023-12-17 12:06 | PCM.HOSP.N ---
Hospitalist Note Seen and examined Patient admitted with abdominal pain started with right lower quadrant and then became diffuse progressively worsening for about 1 week. She also has intermittent diarrhea with nausea and vomiting. On exam Abdomen is tender on lower quadrants right more than left. No guarding/rebound guarding or rigidity. Patient was evaluated by surgeon. CT shows inflammation with thickening of distal small bowel right side of colon including appendix therefore suspected Crohn's disease or infectious/inflammatory ileocolitis or ischemic colitis Dr. Tello is consulted. Currently will do colonoscopy tomorrow. Started on IV Solu-Medrol for suspected Crohn's disease. She never had GI problem in the past or prolonged bowel issues. Denies any suspected food poisoning. She not had bowel movement since admission therefore unlikely C. difficile.
[2023-12-17] MEDS: Ondansetron 4 MG/2 ML Vial IV (13:45)
--- NOTE | 2023-12-17 14:26 | CASEMGMT ---
JARAD LAYTON Assessment: Face to Face with pt for initial transition planning/care coordination assessment. RN CALIN introduced self and role at [facility], pt voices understanding and consents to assessment. Pt is A&O x4 and answers all questions appropriately at this time. Pt sitting up in bed in no distress. Care providers, pharmacy, and demographics verified/updated. Admitting Dx:N/V/D, ilecolitis Strata Score: 1 PCP:Ralph Specialists:sonu Michele [facility] Insurance: [facility] [employer] Prescription Benefit: yes LNOK: Hamzah Payne, ; Mraa Gonsales, niece Living Arrangements: Pt lives with in a single story home with 2 steps to enter. Pt reports she is I in ADL's and denies concerns at home. Transportation: Pt drives self and denies concerns with transportation. DME:raised toilet seat, cane HHC/SNF: Denies hx of Pt states no concerns with going home at time of dc. Pt states she smokes 10 cigarettes per day, drinks a couple martinis nightly and denies any other drugs. Pt denies need for cessation resources for this. 6 cl=24. Pt states no further concerns/needs. CM to follow. Advised pt to ask CM if any further question/concerns/needs arise, voices understanding. Pt Goal: Home Plan: Home Bindu ABRAHAM CM
--- NOTE | 2023-12-17 19:01 | EX.PCM.CON.G ---
HPI Consult Data Date of Consult: 12/17/23 HPI Narrative Reason for Consultation: Abnormal imaging HPI Narrative: AVIS BROWN, is a 63 y/o F w/ Severe protein calorie malnutrition who presents to the [facility] ED initially on 12/16/23 with history of abdominal discomfort with intermittent diarrhea over the last week. She also complains of awaking on morning on day prior with pain which is since worsened with associated nausea and emesis more tender in the bilateral lower quadrants with no rebound or guarding prompting eventual ED evaluation to be cautious. Patient reporting pain 7/10 in severity and noted to have initially reported 8/10 in severity initially upon ED arrival. Workup in the ED included T98.7, heart rate 87, BP 193/95, respiratory rate 18, 90% on room air with transient heart rate increased to 121 with most recent repeat vitals heart rate 98, BP 112/81, respiratory rate 30, 96% on room air, CBC with WBC 15.8, human 13.1, platelet 232 with left shift, CMP with BUN/creatinine 20/0.86, GFR 70, glucose 110, hepatic profile not marked appearing, lipase 27, lactic acid initial 3.6 with repeat lactic acid 1.1, urinalysis not marked appearing CT abdomen and pelvis with contrast with concentric thickening of the delgado of multiple loops of mid to distal small bowel with thickening of the folds in association with an a hostile appearance of the ascending and transverse colon consistent possibly with ileocolitis with mild diffuse mesenteric edema and a small amount of ascites within the right paracolic gutter, mild dilatation of the appendix and possibility of early changes of acute appendicitis cannot be entirely excluded. In the ED patient ministered 2 L normal saline, morphine 4 mg IV x 2, Zofran 4 mg IV x 1 as well as IV Zosyn. [facility] Medical History CKD (chronic kidney disease), stage II Heavy alcohol use Tobacco use Hypertension Atherosclerosis of right lower extremity with intermittent claudication Left carotid bruit PAD (peripheral artery disease) Gout Home Medications ?Medication ?Instructions ?Recorded ?Last Taken ?Type B-complex with vitamin C 1 cap PO DAILY 06/16/23 Unknown History calcium carbonate (Calcium 600) 600 mg PO DAILY 06/16/23 Unknown History potassium chloride 20 mEq oral 20 meq PO DAILY 06/16/23 Unknown History packet aspirin 81 mg tablet,delayed 81 mg PO DAILY #30 tabs 07/29/23 Unknown Rx release (Adult Aspirin Regimen) ibuprofen 200 mg tablet 400 mg PO Q6H PRN pain 07/29/23 Unknown History lisinopril 10 mg tablet 10 mg PO DAILY #90 tabs 09/23/23 Unknown Rx rosuvastatin 20 mg tablet 20 mg PO DAILY #30 tabs 10/20/23 Unknown Rx Allergy/AdvReac Type Severity Reaction Status Date / Time No Known Allergies Allergy Verified 12/16/23 16:44 Family History Grandmother Diabetes Mother Kidney disease Heart disease Father Heart disease Surgical History No pertinent past surgical history Social History (Updated 12/17/23 @ 00:[address] Samreen Dunham MD) household members: spouse housing: house current occupational status: employed current occupation: [employer] Smoking Status: Current every day smoker tobacco type: cigarettes Tobacco: How many years used: 44 Electronic Cigarette Use: not used alcohol intake: current alcohol intake frequency: 0-2 drinks per day Alcohol type: hard liquor details: Drinks 2 vodka drinks daily, potentially more. substance use type: does not use what type of physical activity do you participate in: walking and weight training frequency: 3-4 times per week seatbelt use: always do you feel safe at home: Yes ROS Constitutional Constitutional: Reports anorexia; Denies chills ENT HEENT: Denies dysphagia Cardiovascular Cardiovascular: Denies chest pain Respiratory/Chest Respiratory/Chest: Denies productive cough Gastrointestinal Gastrointestinal: Reports abdominal pain, diarrhea and nausea Genitourinary Genitourinary: Denies dysuria Musculoskeletal Musculoskeletal: Denies joint swelling Integumentary Integumentary: Denies jaundice Neurologic Neurologic: Denies focal weakness Endocrine Endocrinology: Denies palpitations Hematologic/Lymphatic Hematologic/Lymphatic: Denies easy bleeding Physical Exam Const alert, oriented x3 and no apparent distress HEENT normocephalic and head/scalp atraumatic Resp normal respiratory effort Cardio regular rate GI soft to palpation; Negative for non-distended Palpation: tender LLQ and RLQ and guarding other (Voluntary) Extremity no clubbing, cyanosis or edema Neuro CN's II-XII intact bilaterally Psych mental status grossly normal Lab / Micro Data 12/17/23 08:19 12/17/23 08:19 Labs: Laboratory Results - last 24 hr 12/16/23 17:02: Phosphorus 3.3, Magnesium 1.6, Lipase 27 12/16/23 20:25: Lactic Acid 3.6 H* 12/16/23 21:25: Urine Color Yellow, Urine Clarity Clear, Urine pH 6.0, Ur Specific [place] 1.010, Urine Protein 15 H, Urine Glucose (UA) Normal, Urine Ketones 15 H, Urine Occult Blood Negative, Urine Nitrite Negative, Urine Bilirubin Negative, Urine Urobilinogen Normal, Ur Leukocyte Esterase 25 H, Urine RBC 0 SEEN, Urine WBC 0-5 SEEN, Ur Squamous Epith Cells 0 SEEN, Urine Bacteria 0 SEEN, Urine Mucus 0 SEEN 12/16/23 23:28: Lactic Acid 1.1 12/17/23 08:19: WBC 14.1 H, RBC 3.58 L, Hgb 11.9 L, Hct 36.4 L, MCV 101.7 H, MCH 33.2 H, MCHC 32.7, RDW Std Deviation 51.2 H, RDW Coeff of Divya 13.7, Plt Count 176, MPV 10.5, Immature Gran % (Auto) 0.400, Neut % (Auto) 89.6 H, Lymph % (Auto) 5.6 L, [place] % (Auto) 3.8, Eos % (Auto) 0.0, Baso % (Auto) 0.6, Absolute Neuts (auto) 12.6 H, Absolute Lymphs (auto) 0.79 L, Nucleated RBC % 0, Differential Comment , Sodium 140, Potassium 3.9, Chloride 112 H, Carbon Dioxide 21.0, Anion Gap 7, BUN 11, Creatinine 0.72, Estim Creat Clear Calc 56.30, Est GFR (MDRD) Af Amer 105, Est GFR (MDRD) Non-Af 87, BUN/Creatinine Ratio 15.3, Glucose 123 H, Calcium 8.4 L, Total Bilirubin 0.80, AST 18, ALT 24, Alkaline Phosphatase 40 L, Total Protein 6.2 L, Albumin 2.7 L, Globulin 3.5, Albumin/Globulin Ratio 0.8 L Micro: Microbiology 12/17/23 01:03 Mucosa - Nose Respiratory Panel (PCR) - Final 12/17/23 01:03 Mucosa - Nose Coronavirus COVID-19 PCR - Final Imaging Radiology Impression Abdomen/Pelvis CT 12/16/23 20:12 IMPRESSION: Findings which are most consistent with the ileal colitis possibly Crohn''s disease with associated mild mesenteric edema and ascites The appendix appears mildly dilated and coexisting early changes of acute appendicitis cannot be entirely excluded Clinical correlation is recommended Electronically Signed: Delgado Simpson MD at 21:39 EDT Reading Location ID and State: [facility] / [place] Tel , Service support , Assessment & Plan Assessment/Plan (1) Ileocolitis: PLAN: Plan The patient is a 63 y/o F w/ with history of abdominal discomfort with intermittent diarrhea over the last week awaking on morning on day prior with p with no rebound or guarding prompting eventual ED evaluation to be cautious. Abdominal discomfort with CT scan concerning for ileocolitis with diffuse mesenteric edema and small amount of ascites with mild dilatation of the appendix and concern for possibility of acute appendicitis with initial lactic acidosis. Differential diagnosis does include inflammatory bowel disease, ischemic colitis, infectious colitis. I do recommend continue steroids and IV antibiotics at this time. She will undergo EGD and colonoscopy tomorrow. She was explained alternatives, risk and benefits include not withstanding bleeding, infection, sepsis, perforation, need for emergent urgent . She will an ASA of 3. Charges/Coding Visit Charges Inpatient E&M: 46069 Init Hosp L3
[2023-12-17] MEDS: Bisacodyl 5 MG Tablet 20 MG PO (19:07)
[2023-12-17] MEDS: Polyethylene Glycol 3350 BOWEL PREP PO (20:29)
[2023-12-17] MEDS: Atorvastatin Calcium 40 MG Tablet PO (21:31)
[2023-12-18] VITALS (8 sets, daily range): BP systolic 139–160; BP diastolic 80–98; PULSE 62–88; RESP 16–18; TEMP 36.6–37.1; O2SAT 93–98; BMI 16.7
--- NOTE | 2023-12-18 05:55 | EKG12_ITS ---
Test Reason : PREOP Blood Pressure : / mmHG Vent. Rate : 092 BPM Atrial Rate : 092 BPM P-R Int : 134 ms QRS Dur : 072 ms QT Int : 382 ms P-R-T Axes : 044 013 023 degrees QTc Int : 472 ms Normal sinus rhythm Normal ECG No previous ECGs available Confirmed by José Manuel Whiteside ([id number]), assignment desk editor YESSENIA RIZZO ([id number]) on 12/20/2023 1:32:29 PM Referred By: AMALIA Confirmed By:José Manuel Whiteside
[2023-12-18] MEDS: Piperacil/Tazobactam 3.375 GM in 0.9% Normal Saline (50mL MB+) 50 ML IV ×3 (06:28→21:56)
[2023-12-18 07:52] LABS: Absolute Lymphocyte Count 0.62 X10^3/uL (0.83-4.51); Absolute Neutrophil Count 21.8 X10^3/uL (2.0-7.7); Basophil# 0.12 X10^3/uL; Basophil% 0.5 % (0-1); Hematocrit 40.2 % (37-47); Hemoglobin 13.1 g/dL (12.0-15.0); Lymphocyte # 0.62 X10^3/ul (0.83-4.51); Lymphocyte % 2.6 % (19-41); Mean Corp Hgb Conc 32.6 g/dL (32-36); Mean Corpuscular Hgb 33.4 pg (27.0-32.0); Mean Corpuscular Volume 102.6 fL (81-99); Mean Platelet Vol. 10.4 fl (6.2-12.0); Monocyte# 0.89 X10^3/uL; Monocyte% 3.8 % (0-10); NRBC Flagged by Analyzer 0 % (0-5); Neutrophil # 21.77 X10^3/uL (2.7-7.7); Neutrophil % 92.5 % (47-70); POSITIVE DIFFERENTIAL YES; Platelet Count 177 K/mm3 (150-450); RBC Distribution Width CV 13.5 % (11.6-14.6); RBC Distribution Width SD 51.7 fl (35.1-43.9); Red Blood Count 3.92 M/mm3 (4.2-5.4); White Blood Count 23.6 K/mm3 (4.4-11.0)
[2023-12-18 08:03] LABS: Differential Indicated SCAN CRITERIA MET
--- NOTE | 2023-12-18 08:14 | PRE.ANES_ITS ---
ASA Classification* ASA Classification ASA Classification: 3 (see written pre anesthesia record for full assessment) and E (see written pre anesthesia record for full assessment) Assessment & Plan Anesthesia* Anesthesia Assessment Anesthesia Assessment: Discussed sedation and/or anesthesia options, risks, benefits, and alternatives with patient/parents/legal guardian/POA. Questions invited. The patient/parents/legal guardian/POA seems to understand and agrees to proceed with anesthesia plan. Reviewed the physical assessment, medical history, allergy history and patient home medications list prior to surgery/procedure/anesthetic and documented any changes. Performed airway and anesthesia risk assessments. Anesthesia Type Anesthesia Type: MAC (see written pre anesthesia record for full assessment) Anesthesia Focused Assessment* Temperature: 98.5 F Pulse Rate: 74 Blood Pressure: 139/80 Respiratory Rate: 16 Pulse Ox: 93 Airway Assessment Mouth opens: >3 cm (see written pre anesthesia record for full assessment) Mallampati Score: II (see written pre anesthesia record for full assessment) Focused Labs Anesthesia Preop lab: CBC WBC 23.6 K/mm3 (4.4-11.0) H 12/18/23 07:44 RBC 3.92 M/mm3 (4.2-5.4) L 12/18/23 07:44 Hgb 13.1 g/dL (12.0-15.0) 12/18/23 07:44 Hct 40.2 % (37-47) 12/18/23 07:44 Plt Count 177 K/mm3 (150-450) 12/18/23 07:44 CHEMISTRY Potassium 3.9 mmol/L (3.5-5.1) 12/17/23 08:19 Sodium 140 mmol/L (136-145) 12/17/23 08:19 Magnesium 1.6 mg/dL (1.6-2.6) 12/16/23 17:02 Phosphorus 3.3 mg/dL (2.5-4.9) 12/16/23 17:02 BUN 11 mg/dL (7-18) 12/17/23 08:19 Creatinine 0.72 mg/dL (0.55-1.02) 12/17/23 08:19 Glucose 123 mg/dL (74-106) H 12/17/23 08:19 COAG Pre-Assessment Diagnosis/Proposed Procedure Planned Operative Procedure(s): colonoscopy Anesthesia History Anesthesia History - production consultant: Anesthesia History - production consultant Hx Hospitalization Any Problems With Anesthesia No: never had anestesia 12/18/23 03:31 before Cholinesterase deficiency No: never had anestesia 12/18/23 03:31 before You/Your Family Experience No 12/18/23 03:31 fever (hyperthermia) with Relationship Recent Exposure to Contagious No 12/18/23 03:31 Disease Does patient have nerve No 12/18/23 03:31 stimulator Patient instructed to have No 12/18/23 03:31 device shut off --Does patient have Pacemaker or ICD? When Was Last Pacemaker Check QUESTION #4 FULL TEXT: You/Your Family Experience fever (hyperthermia) with Anesthesia Last Oral Intake Last Oral intake: Last Oral Intake NPO since Meds taken in AM with sips of water? Meds patient instructed to take am of surgery PONV PONV - production consultant: PONV - production consultant Female HX of Motion Sickness HX of N/V After Surgery Non-Smoker Duration of Surgery greater than 60 minutes Number of Risk Factors PONV Score Height & Weight Height & Weight: Anesthesia: Height & Weight Height 5 ft 5 in 12/17/23 14:00 Weight: 45.5 kg 12/18/23 06:00 Body Mass Index (BMI) 16.7 12/18/23 06:00 Respiratory Assessment Respiratory Assessment - production consultant: Respiratory Tract Infection Hx - production consultant Hx Respiratory Tract Infection No 12/18/23 03:31 STOP Sleep Apnea STOP Sleep Apnea - production consultant: STOP Sleep Apnea - production consultant Hx Hypertension Yes 12/17/23 02:25 Hx Sleep Apnea No 12/17/23 02:25 CPAP BIPAP Do you snore loudly (louder No 12/17/23 02:25 than talking or can be heard Do you often feel tired/ Yes 12/17/23 02:25 fatigued/ sleepy during daytime? Has anyone observed you stop No 12/17/23 02:25 breathing during sleep? STOP Results Positive 12/17/23 02:25 QUESTION #5 FULL TEXT : Do you snore loudly (louder than talking or can be heard through closed doors)? Tobacco Use History Tobacco Use History - production consultant: Tobacco Use History - production consultant Tobacco Use Smoking Status Current every day smoker 12/17/23 15:40 Hx Tobacco Use Yes 12/17/23 02:25 Years Smoking Packs Smoked per Day 1 12/17/23 02:25 Smoking Cessation Date was within the last 15 years Hx Smoking Cessation Date Hx Smoking Cessation Counseling Hematologic Medial History Hematologic Hx - production consultant: Hematologic Medical Hx - infusion therapy nurse Hx of Blood Transfusion No 12/17/23 02:25 Hx of Transfusion in last 3 No 12/17/23 02:25 Months Date of Last Transfusion (if within last 3 months) Ever experience any problems No 12/17/23 02:25 with transfusion(s)? Specify any problems Hx of Preganancy in last 3 N/A 12/17/23 02:25 Months Nurse Filling Out Transfusion [place]OWS 12/17/23 02:25 & Questions: Date: 12/17/23 12/17/23 02:25 Time: 02:26 12/17/23 02:25 Patient unable to answer at this time (ie. confused, unrespo /Reproduction History /Reproductive History - production consultant: /Reproductive Hx- production consultant Hx Now No 12/18/23 03:31 Gestational Age (in weeks): EDC: Hx Hx Para Hx Section SAB No 12/18/23 03:31 Active Medications Active Medications: Current Medications Generic Name Dose Route Start Last Admin Trade Name Freq PRN Reason Stop Dose Admin Acetaminophen 650 mg 12/17/23 01:55 Acetaminophen 325 Mg Tablet PO Q4H PRN PRN Fever, pain 1-10/10 Albuterol Sulfate 2.5 mg 12/17/23 01:55 Albuterol 2.5 Mg/3 Ml Vial.Neb. INHALATION Q2H PRN PRN Dyspnea, wheezing Aspirin 81 mg 12/17/23 10:00 12/17/23 09:41 Aspirin E.C. 81 Mg Tablet PO 81 mg DAILY IMANI Administration Atorvastatin Calcium 40 mg 12/17/23 22:00 12/17/23 21:31 Atorvastatin Calcium 40 Mg Tablet PO 40 mg QHS IMANI Administration Enoxaparin Sodium 40 mg 12/17/23 10:00 12/17/23 09:42 Enoxaparin 40 Mg/0.4 Ml Syringe SC 40 mg DAILY IMANI Administration Folic Acid 1 mg 12/17/23 08:00 12/17/23 09:41 Folic Acid 1 Mg Tablet PO 1 mg BREAKFAST IMANI Administration Hydralazine HCl 10 mg 12/17/23 12:11 Hydralazine 20 Mg/Ml Vial IV Q4H PRN PRN SBP > 180 Protocol Piperacillin Sod/Tazobactam 50 mls @ 12.5 mls/hr 12/17/23 06:00 12/18/23 06:28 Sod 3.375 gm/ Sodium Chloride IV 12.5 mls/hr Q8 IMANI Administration Pantoprazole Sodium 40 mg/ 110 mls @ 330 mls/hr 12/17/23 01:55 12/17/23 22:58 Sodium Chloride IV Infused Q12 IMANI Infusion Sodium Chloride 250 mls @ 15 mls/hr 12/17/23 02:02 IV .[id number] PRN Additional IVPB Infusion Sodium Chloride 250 mls @ 15 mls/hr 12/17/23 02:02 IV .[id number] PRN Saline Flush Lisinopril 10 mg 12/17/23 10:00 12/17/23 09:41 Lisinopril 10 Mg Tablet PO 10 mg DAILY IMANI Administration Protocol Lorazepam 2 mg 12/17/23 01:55 Lorazepam 2 Mg/Ml Syringe IV UD PRN CIWA score >/=15. Protocol Lorazepam 2 mg 12/17/23 01:55 Lorazepam 2 Mg/Ml Syringe IV Q2H PRN PRN CIWA score > 8 but <15 Protocol Lorazepam 2 mg 12/17/23 01:55 Lorazepam 1 Mg Tablet PO UD PRN CIWA score >/=15. Protocol Lorazepam 2 mg 12/17/23 01:55 Lorazepam 1 Mg Tablet PO Q2H PRN PRN CIWA score > 8 but <15 Protocol Methylprednisolone 40 mg 12/17/23 12:10 12/18/23 06:30 Methylprednisolone 40 Mg/Ml Vial IV 40 mg Q8 IMANI Administration Morphine Sulfate 2 - 4 mg 12/17/23 12:11 12/17/23 20:16 Morphine 2 Mg/Ml Syringe IV 4 mg Q3H PRN PRN Administration Pain Score 4-10 Multivitamins/Minerals 1 tablet 12/18/23 08:00 Multivitamins,Ther W-Minerals Tablet PO BREAKFAST IMANI Nicotine 14 mg 12/17/23 01:55 12/17/23 09:40 Nicotine 14 Mg Patch TD 14 mg DAILY IMANI Administration Ondansetron HCl 4 mg 12/17/23 01:55 12/17/23 13:45 Ondansetron 4 Mg/2 Ml Vial IV 4 mg Q8H PRN PRN Administration NAUSEA/VOMITING Potassium Chloride 20 meq 12/17/23 10:00 12/17/23 09:42 Potassium Chloride Oral Tablet 20 Meq PO 20 meq DAILY IMANI Administration Prochlorperazine Edisylate 5 mg 12/17/23 01:55 Prochlorperazine 10 Mg/2 Ml Vial IV Q4H PRN PRN Breakthrough nausea/vomiting Sodium Chloride 10 - 40 ml 12/17/23 02:02 12/17/23 21:30 0.9% Saline Lock 10 Ml Syringe IV 10 ml UD PRN Administration SALINE FLUSH Thiamine HCl 100 mg 12/17/23 08:00 12/17/23 09:41 Thiamine Hydrochloride 100 Mg Tablet PO 100 mg BREAKFAST IMANI Administration PFSH Medical History Smoker CKD (chronic kidney disease), stage II Heavy alcohol use Tobacco use PAD (peripheral artery disease) Hypertension Atherosclerosis of right lower extremity with intermittent claudication Left carotid bruit Gout Home Medications ?Medication ?Instructions ?Recorded ?Last Taken ?Type B-complex with vitamin C 1 cap PO DAILY 06/16/23 Unknown History calcium carbonate (Calcium 600) 600 mg PO DAILY 06/16/23 Unknown History potassium chloride 20 mEq oral 20 meq PO DAILY 06/16/23 Unknown History packet aspirin 81 mg tablet,delayed 81 mg PO DAILY #30 tabs 07/29/23 Unknown Rx release (Adult Aspirin Regimen) ibuprofen 200 mg tablet 400 mg PO Q6H PRN pain 07/29/23 Unknown History lisinopril 10 mg tablet 10 mg PO DAILY #90 tabs 09/23/23 Unknown Rx rosuvastatin 20 mg tablet 20 mg PO DAILY #30 tabs 10/20/23 Unknown Rx Allergy/AdvReac Type Severity Reaction Status Date / Time No Known Allergies Allergy Verified 12/16/23 16:44 Family History Grandmother Diabetes Mother Kidney disease Heart disease Father Heart disease Surgical History No pertinent past surgical history Social History household members: spouse housing: house current occupational status: employed current occupation: [employer] Smoking Status: Current every day smoker tobacco type: cigarettes Tobacco: How many years used: 44 Electronic Cigarette Use: not used alcohol intake: current alcohol intake frequency: 0-2 drinks per day Alcohol type: hard liquor details: Drinks 2 vodka drinks daily, potentially more. substance use type: does not use what type of physical activity do you participate in: walking and weight training frequency: 3-4 times per week seatbelt use: always do you feel safe at home: Yes Review of Systems (Anesthesia) ROS Narrative System reviewed and no additional complaints, except as documented.
[2023-12-18 09:00] LABS: Anion Gap 9 (5-15); BUN 12 mg/dL (7-18); BUN/Creat Ratio 15.7 RATIO (10-20); Calcium,Total 9.3 mg/dL (8.5-10.1); Chloride 103 mmol/L (98-107); Creatinine, Serum 0.76 mg/dL (0.55-1.02); EST Glomerular Filtration Rate 81 mL/min (>60); Est Glom Filt Rate - Afr Amer 98 mL/min (>60); Estimated Creatinine Clearance 53.72 ml/min; Glucose 164 mg/dL (74-106); Potassium 3.6 mmol/L (3.5-5.1); Sodium Level 132 mmol/L (136-145)
[2023-12-18] MEDS: Morphine 2 MG/ML Syringe IV ×2 (09:28→18:53)
[2023-12-18] MEDS: Ondansetron 4 MG/2 ML Vial IV (09:29)
[2023-12-18] MEDS: Pantoprazole Sodium 40 MG in 0.9% Normal Saline (100mL MB+) 100 ML 330 MG IV ×2 (10:56→21:09)
[2023-12-18] MEDS: Thiamine Hydrochloride 100 MG Tablet PO (10:57)
[2023-12-18] MEDS: Lisinopril 10 MG Tablet PO (10:58)
[2023-12-18] MEDS: Folic Acid 1 MG Tablet PO (10:58)
[2023-12-18] MEDS: Multivitamins,Ther W-Minerals Tablet 1 TABLET PO (10:58)
[2023-12-18] MEDS: Potassium Chloride Oral Tablet 20 MEQ PO (10:59)
--- NOTE | 2023-12-18 11:52 | PCM.PN.SRG ---
Subjective Subjective Patient still experiencing similar level of abdominal distention and discomfort today, but states that overall she seems to be doing slightly better since admission. Originally she was scheduled to undergo colonoscopy today. However, this was canceled due to inability to effectively prep for this colonoscopy. She is disappointed however understands the importance of a satisfactory bowel prep for colonoscopy. She denies any fevers or chills. White count has increased to 24. Objective Data Objective Data Vital Signs: Vital Signs Temp Pulse Resp BP Pulse Ox O2 Del Method 98.5 F 74 16 139/80 H 93 Room Air 12/18/23 08:14 12/18/23 08:14 12/18/23 08:14 12/18/23 08:14 12/18/23 08:14 12/18/23 07:25 Oxygen Delivery Method Room Air Weight: 100 lb 4.965 oz Body Mass Index (BMI) 16.7 Intake & Output: Intake and Output for Last 24 Hours 12/16/23 12/17/23 12/18/23 23:59 23:59 23:59 Intake Total 1050 / 1050 2580 / 2580 3210 / 3210 Output Total 500 / 500 Balance 1050 / 1050 2580 / 2580 2710 / 2710 Lab / Micro Data 12/18/23 07:44 12/18/23 07:44 Labs: Laboratory Results - last 24 hr 12/18/23 07:44: WBC 23.6 H, RBC 3.92 L, Hgb 13.1, Hct 40.2, MCV 102.6 H, MCH 33.4 H, MCHC 32.6, RDW Std Deviation 51.7 H, RDW Coeff of Divya 13.5, Plt Count 177, MPV 10.4, Immature Gran % (Auto) 0.600, Neut % (Auto) 92.5 H, Lymph % (Auto) 2.6 L, [place] % (Auto) 3.8, Eos % (Auto) 0.0, Baso % (Auto) 0.5, Absolute Neuts (auto) 21.8 H, Absolute Lymphs (auto) 0.62 L, Nucleated RBC % 0, Sodium 132 L, Potassium 3.6, Chloride 103, Carbon Dioxide 20.0 L, Anion Gap 9, BUN 12, Creatinine 0.76, Estim Creat Clear Calc 53.72, Est GFR (MDRD) Af Amer 98, Est GFR (MDRD) Non-Af 81, BUN/Creatinine Ratio 15.7, Glucose 164 H, Calcium 9.3 Micro: Microbiology 12/17/23 01:03 Mucosa - Nose Respiratory Panel (PCR) - Final 12/17/23 01:03 Mucosa - Nose Coronavirus COVID-19 PCR - Final Physical Exam Const oriented x3 and no apparent distress Resp normal respiratory effort and clear to auscultation bilaterally GI GI Narrative: Abdomen is somewhat distended. She does have mild to moderate diffuse tenderness to palpation along the lower abdomen bilaterally. Tenderness seems to be more on the right versus left. No rebound or guarding. No overlying skin changes Assessment & Plan Assessment/Plan (1) Ileocolitis: PLAN: Patient is a 63-year-old female admitted with abdominal pain and CT scan findings concerning for ileocolitis. There was a fecalith in the appendix along with some slight inflammation of the appendix. The overall clinical picture seems to be more concerning for ileocolitis versus appendicitis. Exact etiology of the ileocolitis is uncertain at this point. Agree with plans for colonoscopy once adequately prepped. Recommend continued antibiotics/steroids as treatment for possible Crohn's disease. Will continue to follow from a surgical standpoint. All questions and concerns were addressed. Charges/Coding Visit Charges Inpatient E&M: 44635 Subs Hosp L3
--- NOTE | 2023-12-18 11:54 | PN.HOSP_ITS ---
Subjective Subjective Continues to have right lower quadrant abdominal pain that she has some diffuse tenderness as well Objective Data Objective Data Vital Signs: Vital Signs Temp Pulse Resp BP Pulse Ox O2 Del Method 98.5 F 74 16 139/80 H 93 Room Air 12/18/23 08:14 12/18/23 08:14 12/18/23 08:14 12/18/23 08:14 12/18/23 08:14 12/18/23 07:25 Oxygen Delivery Method Room Air Weight: 100 lb 4.965 oz Body Mass Index (BMI) 16.7 Intake & Output: Intake and Output for Last 24 Hours 12/17/23 12/18/23 12/19/23 03:59 03:59 03:59 Intake Total 2160 / 2160 4520 / 4520 160 / 160 Output Total 500 / 500 Balance 2160 / 2160 4520 / 4520 -340 / -340 Lab / Micro Data 12/18/23 07:44 12/18/23 07:44 Labs: Laboratory Results - last 24 hr 12/18/23 07:44: WBC 23.6 H, RBC 3.92 L, Hgb 13.1, Hct 40.2, MCV 102.6 H, MCH 33.4 H, MCHC 32.6, RDW Std Deviation 51.7 H, RDW Coeff of Divya 13.5, Plt Count 177, MPV 10.4, Immature Gran % (Auto) 0.600, Neut % (Auto) 92.5 H, Lymph % (Auto) 2.6 L, [place] % (Auto) 3.8, Eos % (Auto) 0.0, Baso % (Auto) 0.5, Absolute Neuts (auto) 21.8 H, Absolute Lymphs (auto) 0.62 L, Nucleated RBC % 0, Sodium 132 L, Potassium 3.6, Chloride 103, Carbon Dioxide 20.0 L, Anion Gap 9, BUN 12, Creatinine 0.76, Estim Creat Clear Calc 53.72, Est GFR (MDRD) Af Amer 98, Est GFR (MDRD) Non-Af 81, BUN/Creatinine Ratio 15.7, Glucose 164 H, Calcium 9.3 Micro: Microbiology 12/17/23 01:03 Mucosa - Nose Respiratory Panel (PCR) - Final 12/17/23 01:03 Mucosa - Nose Coronavirus COVID-19 PCR - Final Physical Exam Narrative General: Alert, Oriented x3, Cooperative, No apparent distress HEENT: Atraumatic, PERRLA, EOMI, Normocephalic Oral: Moist Mucosa Neck: Supple, No JVD Lungs: Diminished, Normal air movement, No rhonchi, No wheeze, No rales Cardiovascular: Regular rate, Regular Rhythm, Normal S1, Normal S2, No murmurs Abdomen: Soft, TTP RLQ, Non-Distended, No Hepato-splenomegaly Extremities: No edema, Capillary Refill Less than 3 Seconds Skin: No rashes, No breakdown Musculoskeletal: No Tenderness to Palpation of Joints or Extremities Neurological: No focal neurological deficits, Motor Exam 5/5 strength throughout, Sensory exam intact to light touch and pain Psych/Mental Status: Flat Assessment & Plan Assessment/Plan (1) Ileocolitis: PLAN: Plan #1. N/V/D with associated abdominal discomfort with CT scan concerning for ileocolitis with diffuse mesenteric edema and small amount of ascites with mild dilatation of the appendix and concern for possibility of acute appendicitis with initial lactic acidosis, improved in the ED with IV fluids, possibility of underlying IBD: Will admit to medical surgical floor, will maintain on IV fluids, will obtain C. difficile and enteric pathogens to be cautious, will obtain COVID PCR also be cautious, will continue IV Zosyn therapy, will continue to trend CBC and CMP, will have pain regimen and as needed antiemetic regimen, will maintain on IV PPI, will maintain on clear liquids until clinically improving with transition once improving, given concern on read for possibility of Crohn's disease will request gastroenterology involvement but will defer usage of steroids initially pending evaluation, will continue surgery consultation initiated per ED given concern for possibility of early appendicitis also. 12/18/2023: Continue with steroids and antibiotics, planning for colonoscopy today 2. Essential HTN/HLD/PAD of the right lower extremity ? Continue with aspirin and lisinopril ? Continue with Crestor ? Will monitor make adjustments as necessary 3. Chronic alcohol use ? Will monitor with CIWV protocol #9. Severe protein calorie malnutrition: Significantly reduced BMI of 16.6, concern for underlying alcohol abuse is noted which likely is contributing as well as possibility of underlying COPD that been undiagnosed given ongoing tobacco use prolonged history, magnesium and phosphorus levels requested, nutrition consulted for recommendations. DVT: Lovenox Charges/Coding Visit Charges Inpatient E&M: 38564 Subs Hosp L2
[2023-12-18] MEDS: Bisacodyl 5 MG Tablet 20 MG PO (14:27)
[2023-12-18] MEDS: Polyethylene Glycol 3350 BOWEL PREP PO (16:20)
[2023-12-18] MEDS: 0.9% Saline Lock 10 ML Syringe IV (18:54)
[2023-12-18] MEDS: Atorvastatin Calcium 40 MG Tablet PO (21:04)
[2023-12-19] VITALS (12 sets, daily range): BP systolic 136–180; BP diastolic 76–108; PULSE 57–84; RESP 16–18; TEMP 36.5–36.9; O2SAT 95–99; BMI 16.9
[2023-12-19] MEDS: Morphine 2 MG/ML Syringe IV (03:28)
[2023-12-19] MEDS: Piperacil/Tazobactam 3.375 GM in 0.9% Normal Saline (50mL MB+) 50 ML IV ×3 (04:59→23:44)
[2023-12-19 06:13] LABS: Absolute Lymphocyte Count 0.49 X10^3/uL (0.83-4.51); Absolute Neutrophil Count 17.3 X10^3/uL (2.0-7.7); Basophil# 0.03 X10^3/uL; Basophil% 0.2 % (0-1); Hematocrit 31.9 % (37-47); Hemoglobin 10.4 g/dL (12.0-15.0); Lymphocyte # 0.49 X10^3/ul (0.83-4.51); Lymphocyte % 2.6 % (19-41); Mean Corp Hgb Conc 32.6 g/dL (32-36); Mean Corpuscular Hgb 33.2 pg (27.0-32.0); Mean Corpuscular Volume 101.9 fL (81-99); Mean Platelet Vol. 11.2 fl (6.2-12.0); Monocyte% 3.2 % (0-10); NRBC Flagged by Analyzer 0 % (0-5); Neutrophil # 17.34 X10^3/uL (2.7-7.7); POSITIVE DIFFERENTIAL YES; Platelet Count 172 K/mm3 (150-450); RBC Distribution Width CV 13.3 % (11.6-14.6); RBC Distribution Width SD 49.8 fl (35.1-43.9); Red Blood Count 3.13 M/mm3 (4.2-5.4); White Blood Count 18.6 K/mm3 (4.4-11.0)
[2023-12-19 06:53] LABS: Anion Gap 5 (5-15); BUN 13 mg/dL (7-18); BUN/Creat Ratio 21.1 RATIO (10-20); Chloride 106 mmol/L (98-107); Creatinine, Serum 0.62 mg/dL (0.55-1.02); EST Glomerular Filtration Rate 104 mL/min (>60); Est Glom Filt Rate - Afr Amer 125 mL/min (>60); Estimated Creatinine Clearance 66.86 ml/min; Glucose 156 mg/dL (74-106); Potassium 3.6 mmol/L (3.5-5.1); Sodium Level 136 mmol/L (136-145)
--- NOTE | 2023-12-19 08:49 | OP.CCLET_ITS ---
12/19/2023 Kaleigh Rosas Md Re : Colonoscopy procedure for Sara Payne Dear Ralph This procedure was performed on Tuesday, December 19, 2023. My impressions and recommendations are as follows: Impressions : - Diverticulosis in the recto-sigmoid colon and in the sigmoid colon. - Localized moderate inflammation was found in the rectum, in the recto-sigmoid colon and in the sigmoid colon secondary to colitis. Biopsied. - Anal fissure. - The examined portion of the ileum was normal. Biopsied. - Anal stricture found on digital rectal exam. Recommendations : - [facility]. - Resume regular diet. - Continue present medications. - Await pathology results. - Repeat colonoscopy in 5 years for surveillance. My findings are described in the full procedure note, which is enclosed. If I can be of further assistance, please feel free to contact me at . Sincerely, Baldo Tello, 12/19/2023 8:48:08 AM This report has been signed electronically.
--- NOTE | 2023-12-19 08:49 | OP.COLON_ITS ---
Patient Name: Sara Payne Procedure Date: 12/19/2023 8:13 AM Date of : 1960 Age: 63 Procedure: Colonoscopy Indications: Abdominal pain in the right lower quadrant, Lower abdominal pain, Abnormal CT of the GI tract Providers: Baldo Tello DO Medicines: Monitored Anesthesia Care Patient Profile: This is a 63 year old female. Refer to note in patient chart for documentation of history and physical. Last Colonoscopy: date unknown. Unable to locate last colonoscopy report. Complications: No immediate complications. Procedure: Pre-Anesthesia Assessment: - Prior to the procedure, a History and Physical was performed, and patient medications and allergies were reviewed. The patient is competent. The risks and benefits of the procedure and the sedation options and risks were discussed with the patient. All questions were answered and informed consent was obtained. Patient identification and proposed procedure were verified by the physician in the pre-procedure area. Mental Status Examination: alert and oriented. Airway Examination: normal oropharyngeal airway and neck mobility. Respiratory Examination: clear to auscultation. CV Examination: normal. Prophylactic Antibiotics: The patient does not require prophylactic antibiotics. Prior Anticoagulants: The patient has taken no anticoagulant or antiplatelet agents. ASA Grade Assessment: II - A patient with mild systemic disease. After reviewing the risks and benefits, the patient was deemed in satisfactory condition to undergo the procedure. The anesthesia plan was to use monitored anesthesia care (MAC). Immediately prior to administration of medications, the patient was re-assessed for adequacy to receive sedatives. The heart rate, respiratory rate, oxygen saturations, blood pressure, adequacy of pulmonary ventilation, and response to care were monitored throughout the procedure. The physical status of the patient was re-assessed after the procedure. After I obtained informed consent, the scope was passed under direct vision. Throughout the procedure, the patient's blood pressure, pulse, and oxygen saturations were monitored continuously. The Colonoscope was introduced through the anus and advanced to the terminal ileum. The colonoscopy was performed without difficulty. The patient tolerated the procedure well. The quality of the bowel preparation was adequate. The terminal ileum, ileocecal valve, appendiceal orifice, and rectum were photographed. Scope In: 8:26:30 AM Scope Withdrawal Time 0 hours 7 minutes 50 seconds Scope Out: 8:40:44 AM Total Procedure Duration Time 0 hours 14 minutes 14 seconds Findings: Multiple small and large-mouthed diverticula were found in the recto-sigmoid colon and sigmoid colon. Localized moderate inflammation characterized by congestion (edema), erosions and erythema was found in the rectum, in the recto-sigmoid colon and in the sigmoid colon. Biopsies were taken with a cold forceps for histology. Verification of patient identification for the specimen was done. Estimated blood loss was minimal. A 5 mm anal fissure was found in the anal canal. The terminal ileum appeared normal. Biopsies were taken with a cold forceps for histology. Verification of patient identification for the specimen was done. Estimated blood loss was minimal. The digital rectal exam findings include anal stricture. Impression: - Diverticulosis in the recto-sigmoid colon and in the sigmoid colon. - Localized moderate inflammation was found in the rectum, in the recto-sigmoid colon and in the sigmoid colon secondary to colitis. Biopsied. - Anal fissure. - The examined portion of the ileum was normal. Biopsied. - Anal stricture found on digital rectal exam. Recommendation: - [facility]. - Resume regular diet. - Continue present medications. - Await pathology results. - Repeat colonoscopy in 5 years for surveillance. Procedure Code(s): --- Professional --- 73077, Colonoscopy, flexible; with biopsy, single or multiple CPT copyright 2021 [employer]. All rights reserved. The codes documented in this report are preliminary and upon manager science review may be revised to meet current compliance requirements. Baldo Tello DO 12/19/2023 8:48:08 AM This report has been signed electronically. Number of Addenda: 0 Note Initiated On: 12/19/2023 8:13 AM
--- NOTE | 2023-12-19 08:53 | PCM.POST.ANE ---
Anesthesia: Postop Eval I Current Vital Signs Temperature: 97.7 F Pulse Rate: 69 Blood Pressure: 138/76 Respiratory Rate: 16 Pulse Ox: 96 Oxygen Delivery Method: Room Air Assessment Airway patent: Yes Spontaneous unlabored respirations: Yes Mental status: Awake and Calm nausea: No Vomiting: No Anesthesia Complication: No Fluid Hydration Crystalloid volume administer (ml): 200 Total IV fluid infused: 200 Progress Note Anesthesia document: Postop Eval 1 completed: Yes
--- NOTE | 2023-12-19 09:05 | COLBX_PTH ---
PATIENT: AVIS BROWN LOC: MS3 U#:[id number] AGE/SX: 63/F ROOM: OH324 RE12/17/[address]: Dr. Igor Hdez MD : 1960 BED: 1 DIS: 12/20/2023 SPEC #: [id number] RECD: 12/19/23 09:40 STATUS: FRITZ SCHILLING #: [id number] [place]: 12/19/23 09:[address]: Baldo Tello DEPT: SURGICAL PATHOLOGY RECD BY: Christin Jacobson ENTERED: 12/20/23 12:29 SP TYPE: COLON BX OTHR DR: MD Dr. Samreen David MD Dr. Eric Jopperi, DO Dr. Nicholas F Kotsonis, MD Dr. Prakash Chand, MD Dr. Tamera Robotham, MD Tissues: A - Ileum, NOS B - Sigmoid colon biopsy Procedures: Surgery Specimen Level IV Comments: @ Ordering doctor for SUIV edited from to @ by NAHED at 12/21/23825 @ Submitting doctor edited from to @ nathalie DOCKERY at 12/21/23825 HEADER OPERATION: Colonoscopy PRE-OP DIAGNOSIS: Ileocolitis TISSUE SUBMITTED: A- Terminal ileum biopsy, B- Sigmoid colon biopsy MICROSCOPIC DIAGNOSIS A. Terminal ileum, biopsy: Fragments of small intestinal mucosa, no pathologic diagnosis. B. Sigmoid colon, biopsy: Fragments of colonic mucosa, no pathologic diagnosis. Prisca 12/21/2023 MICROSCOPIC DESCRIPTION Slides are reviewed. GROSS DESCRIPTION A. Received in fixative is one container labeled with the patient's name and designated Terminal ileum biopsy. The specimen consists of two irregular fragments of light smith soft tissue that measures in aggregate 0.5 x 0.4 x 0.1 cm. The specimen is totally submitted in one cassette. B. Received in fixative is one container labeled with the patient's name and designated Sigmoid colon biopsy. The specimen consists of multiple irregular fragments of light smith soft tissue that in aggregate measure 1.0 x 0.3 x 0.1 cm. The specimen is totally submitted in one cassette. 12/20/2023 TC:4 CPT:[id number]
--- NOTE | 2023-12-19 09:06 | PCM.POSTANE2 ---
Anesthesia Postop Eval I Sum Postop Eval Completion status Anesthesia document: Postop Eval 1 completed: Yes Anesthesia Postop Eval I Summary Anesthesia Postop Eval I Summary: Anesthesia Postop Eval I: Assessment Summary Airway patent Yes 12/19/23 08:56 Spontaneous unlabored Yes 12/19/23 08:56 respirations Mental status Awake,Calm 12/19/23 08:56 nausea No 12/19/23 08:56 Vomiting No 12/19/23 08:56 Anesthesia Postop Eval I: Fluid Summary Crystalloid volume administer 200 12/19/23 08:56 (ml) Colloids volume administered ( ml) Blood Product volume administered (ml) Total IV fluid infused 200 12/19/23 08:56 Anesthesia Postop Eval I: Summary Notes Anesthesia Complication No 12/19/23 08:56 Anesthesia Complication Comment: Post-operative progress note Anesthesia: Postop Eval II Evaluation Mental status: Awake and Calm Pain Level: 0 nausea: No Vomiting: No Complications Anesthesia Complication: No
--- NOTE | 2023-12-19 09:21 | NURSING ---
delay in getting pt back upstairs due to waiting for Medsurg to call back for nurse to nurse report. placed in phase 2
[2023-12-19] MEDS: Aspirin E.C. 81 MG Tablet PO (10:10)
[2023-12-19] MEDS: Potassium Chloride Oral Tablet 20 MEQ PO (10:11)
[2023-12-19] MEDS: Folic Acid 1 MG Tablet PO (10:11)
[2023-12-19] MEDS: Thiamine Hydrochloride 100 MG Tablet PO (10:11)
[2023-12-19] MEDS: Lisinopril 10 MG Tablet PO (10:11)
[2023-12-19] MEDS: Enoxaparin 40 MG/0.4 ML Syringe SC (10:12)
--- NOTE | 2023-12-19 10:13 | PCM.PN.HOSP ---
Subjective Subjective Unfortunately could not have colonoscopy yesterday secondary to poor prep Objective Data Objective Data Vital Signs: Vital Signs Temp Pulse Resp BP Pulse Ox O2 Del Method 97.9 F 68 16 152/82 H 96 Room Air 12/19/23 09:52 12/19/23 09:52 12/19/23 09:52 12/19/23 09:52 12/19/23 09:52 12/19/23 09:52 Oxygen Delivery Method Room Air Weight: 101 lb 13.657 oz Body Mass Index (BMI) 16.9 Intake & Output: Intake and Output for Last 24 Hours 12/18/23 12/19/23 12/20/23 03:59 03:59 03:59 Intake Total 4520 / 4520 2420 / 2420 37.5 / 37.5 Output Total 500 / 500 Balance 4520 / 4520 1920 / 1920 37.5 / 37.5 Lab / Micro Data 12/19/23 05:40 12/19/23 05:40 Labs: Laboratory Results - last 24 hr 12/19/23 05:40: WBC 18.6 H, RBC 3.13 L, Hgb 10.4 L, Hct 31.9 L, MCV 101.9 H, MCH 33.2 H, MCHC 32.6, RDW Std Deviation 49.8 H, RDW Coeff of Divya 13.3, Plt Count 172, MPV 11.2, Immature Gran % (Auto) 1.000 H, Neut % (Auto) 93.0 H, Lymph % (Auto) 2.6 L, [place] % (Auto) 3.2, Eos % (Auto) 0.0, Baso % (Auto) 0.2, Absolute Neuts (auto) 17.3 H, Absolute Lymphs (auto) 0.49 L, Nucleated RBC % 0, Sodium 136, Potassium 3.6, Chloride 106, Carbon Dioxide 25.0, Anion Gap 5, BUN 13, Creatinine 0.62, Estim Creat Clear Calc 66.86, Est GFR (MDRD) Af Amer 125, Est GFR (MDRD) Non-Af 104, BUN/Creatinine Ratio 21.1 H, Glucose 156 H, Calcium 9.0 Micro: Microbiology 12/17/23 01:03 Mucosa - Nose Respiratory Panel (PCR) - Final 12/17/23 01:03 Mucosa - Nose Coronavirus COVID-19 PCR - Final Physical Exam Narrative General: Alert, Oriented x3, Cooperative, No apparent distress HEENT: Atraumatic, PERRLA, EOMI, Normocephalic Oral: Moist Mucosa Neck: Supple, No JVD Lungs: Diminished, Normal air movement, No rhonchi, No wheeze, No rales Cardiovascular: Regular rate, Regular Rhythm, Normal S1, Normal S2, No murmurs Abdomen: Soft, TTP RLQ, Non-Distended, No Hepato-splenomegaly Extremities: No edema, Capillary Refill Less than 3 Seconds Skin: No rashes, No breakdown Musculoskeletal: No Tenderness to Palpation of Joints or Extremities Neurological: No focal neurological deficits, Motor Exam 5/5 strength throughout, Sensory exam intact to light touch and pain Psych/Mental Status: Flat Assessment & Plan Assessment/Plan (1) Ileocolitis: PLAN: Plan #1. N/V/D with associated abdominal discomfort with CT scan concerning for ileocolitis with diffuse mesenteric edema and small amount of ascites with mild dilatation of the appendix and concern for possibility of acute appendicitis with initial lactic acidosis, improved in the ED with IV fluids, possibility of underlying IBD: Will admit to medical surgical floor, will maintain on IV fluids, will obtain C. difficile and enteric pathogens to be cautious, will obtain COVID PCR also be cautious, will continue IV Zosyn therapy, will continue to trend CBC and CMP, will have pain regimen and as needed antiemetic regimen, will maintain on IV PPI, will maintain on clear liquids until clinically improving with transition once improving, given concern on read for possibility of Crohn's disease will request gastroenterology involvement but will defer usage of steroids initially pending evaluation, will continue surgery consultation initiated per ED given concern for possibility of early appendicitis also. 12/18/2023: Continue with steroids and antibiotics, planning for colonoscopy today 12/19/2023: Cannot have colonoscopy secondary to poor prep. Leukocytosis secondary to her steroids. Hopefully will proceed with colonoscopy today if not maybe tomorrow 2. Essential HTN/HLD/PAD of the right lower extremity ? Continue with aspirin and lisinopril ? Continue with Crestor ? Will monitor make adjustments as necessary 3. Chronic alcohol use ? Will monitor with CIWA protocol Severe protein calorie malnutrition: Significantly reduced BMI of 16.6, concern for underlying alcohol abuse is noted which likely is contributing as well as possibility of underlying COPD that been undiagnosed given ongoing tobacco use prolonged history, magnesium and phosphorus levels requested, nutrition consulted for recommendations. DVT: Lovenox Charges/Coding Visit Charges Inpatient E&M: 31888 Subs Hosp L2
--- NOTE | 2023-12-19 10:29 | PCM.PN.SRG ---
Subjective Subjective Feeling much better today. Less distention and pain. Results of colonoscopy noted. White count down to 18 today. No fevers or chills Objective Data Objective Data Vital Signs: Vital Signs Temp Pulse Resp BP Pulse Ox O2 Del Method 97.9 F 68 16 152/82 H 96 Room Air 12/19/23 09:52 12/19/23 09:52 12/19/23 09:52 12/19/23 09:52 12/19/23 09:52 12/19/23 09:52 Oxygen Delivery Method Room Air Weight: 101 lb 13.657 oz Body Mass Index (BMI) 16.9 Intake & Output: Intake and Output for Last 24 Hours 12/17/23 12/18/23 12/19/23 23:59 23:59 23:59 Intake Total 2580 / 2580 4620 / 5420 887.5 / 887.5 Output Total 500 / 500 Balance 2580 / 2580 4120 / 4920 887.5 / 887.5 Lab / Micro Data 12/19/23 05:40 12/19/23 05:40 Labs: Laboratory Results - last 24 hr 12/19/23 05:40: WBC 18.6 H, RBC 3.13 L, Hgb 10.4 L, Hct 31.9 L, MCV 101.9 H, MCH 33.2 H, MCHC 32.6, RDW Std Deviation 49.8 H, RDW Coeff of Divya 13.3, Plt Count 172, MPV 11.2, Immature Gran % (Auto) 1.000 H, Neut % (Auto) 93.0 H, Lymph % (Auto) 2.6 L, [place] % (Auto) 3.2, Eos % (Auto) 0.0, Baso % (Auto) 0.2, Absolute Neuts (auto) 17.3 H, Absolute Lymphs (auto) 0.49 L, Nucleated RBC % 0, Sodium 136, Potassium 3.6, Chloride 106, Carbon Dioxide 25.0, Anion Gap 5, BUN 13, Creatinine 0.62, Estim Creat Clear Calc 66.86, Est GFR (MDRD) Af Amer 125, Est GFR (MDRD) Non-Af 104, BUN/Creatinine Ratio 21.1 H, Glucose 156 H, Calcium 9.0 Micro: Microbiology 12/17/23 01:03 Mucosa - Nose Respiratory Panel (PCR) - Final 12/17/23 01:03 Mucosa - Nose Coronavirus COVID-19 PCR - Final Physical Exam Const oriented x3 and no apparent distress Resp normal respiratory effort GI GI Narrative: Abdomen is soft and minimally tender. It is much softer and less tender today compared to yesterday. She states that this is much more like her baseline abdominal size. Assessment & Plan Assessment/Plan (1) Ileocolitis: PLAN: The patient is a 63-year-old female who presented with abdominal pain and CT scan evidence concerning for ileocolitis. Colonoscopy performed and results noted. Clinically she seems much improved today. I have no surgical plans at this time but would recommend continued antibiotics and steroids as these seem to be helping. Await pathology results from colonoscopy Charges/Coding Visit Charges Inpatient E&M: 32529 Subs Hosp L3
[2023-12-19] MEDS: Pantoprazole Sodium 40 MG in 0.9% Normal Saline (100mL MB+) 100 ML 330 MG IV ×2 (11:53→23:50)
[2023-12-19] MEDS: 0.9% Saline Lock 10 ML Syringe IV (14:55)
[2023-12-19] MEDS: hydrALAZINE 20 MG/ML Vial 10 MG IV (20:03)
[2023-12-19] MEDS: Senna/Docusate Sodium 1 Tablet PO (23:45)
[2023-12-19] MEDS: Atorvastatin Calcium 40 MG Tablet PO (23:45)
[2023-12-20] MEDS: Acetaminophen 325 MG Tablet 650 MG PO (05:23)
[2023-12-20] MEDS: Piperacil/Tazobactam 3.375 GM in 0.9% Normal Saline (50mL MB+) 50 ML IV (05:28)
[2023-12-20 05:37] VITALS: BP 181/88; PULSE 67; RESP 20; TEMP 36.8; O2SAT 98
[2023-12-20 05:50] VITALS: BP 181/88; PULSE 67
[2023-12-20] MEDS: hydrALAZINE 20 MG/ML Vial 10 MG IV (05:50)
[2023-12-20 06:00] VITALS: BMI 17.3
[2023-12-20] MEDS: Lisinopril 10 MG Tablet PO (07:37)
[2023-12-20] MEDS: Folic Acid 1 MG Tablet PO (07:38)
[2023-12-20] MEDS: Thiamine Hydrochloride 100 MG Tablet PO (07:38)
[2023-12-20] MEDS: Multivitamins,Ther W-Minerals Tablet 1 TABLET PO (07:38)
[2023-12-20 08:00] VITALS: BP 167/84; PULSE 71; RESP 18; TEMP 37.1; O2SAT 98
[2023-12-20 08:07] LABS: Anion Gap 7 (5-15); BUN 19 mg/dL (7-18); BUN/Creat Ratio 26.2 RATIO (10-20); Calcium,Total 9.4 mg/dL (8.5-10.1); Chloride 105 mmol/L (98-107); Creatinine, Serum 0.73 mg/dL (0.55-1.02); EST Glomerular Filtration Rate 86 mL/min (>60); Est Glom Filt Rate - Afr Amer 104 mL/min (>60); Estimated Creatinine Clearance 57.89 ml/min; Glucose 152 mg/dL (74-106); Potassium 3.2 mmol/L (3.5-5.1); Sodium Level 138 mmol/L (136-145)
--- NOTE | 2023-12-20 08:31 | PN.SURG_ITS ---
Subjective Subjective Patient evaluated resting comfortably in bed. She denies any nausea, vomiting this morning. She notes some soreness in the RLQ. She denies feeling feverish. She notes passing flatus. She notes loose stool. She voices eating a heavy meal last night, which increased her pain and did not agree with her. Objective Data Objective Data Vital Signs: Vital Signs Temp Pulse Resp BP Pulse Ox O2 Del Method 98.2 F 67 20 H 181/88 H 98 Room Air 12/20/23 05:37 12/20/23 05:50 12/20/23 05:37 12/20/23 05:50 12/20/23 05:37 12/20/23 05:37 Oxygen Delivery Method Room Air Weight: 103 lb 13.404 oz Body Mass Index (BMI) 17.3 Intake & Output: Intake and Output for Last 24 Hours 12/18/23 12/19/23 12/20/23 23:59 23:59 23:59 Intake Total 4620 / 5420 1380.0 / 1380.0 360 / 360 Output Total 500 / 500 Balance 4120 / 4920 1380.0 / 1380.0 360 / 360 Lab / Micro Data 12/19/23 05:40 12/20/23 07:14 Labs: Laboratory Results - last 24 hr 12/20/23 07:14: Sodium 138, Potassium 3.2 L, Chloride 105, Carbon Dioxide 26.0, Anion Gap 7, BUN 19 H, Creatinine 0.73, Estim Creat Clear Calc 57.89, Est GFR (MDRD) Af Amer 104, Est GFR (MDRD) Non-Af 86, BUN/Creatinine Ratio 26.2 H, G lucose 152 H, Calcium 9.4 Micro: Microbiology 12/17/23 01:03 Mucosa - Nose Respiratory Panel (PCR) - Final 12/17/23 01:03 Mucosa - Nose Coronavirus COVID-19 PCR - Final Physical Exam GI GI Narrative: Abdomen- soft, slight tenderness in the RLQ with deep palpation. Positive bowel sounds. Assessment & Plan Assessment/Plan (1) Ileocolitis: PLAN: I am following this patient in conjunction with Dr. Rivera. He will independently evaluate this patient. Patient improved from admission Colonoscopy yesterday demonstrated localized moderate inflammation in the rectum, recto-sigmoid and sigmoid colon secondary to colitis, anal fissure. Ileum was biopsied. Anal stricture. No surgical intervention recommended at this time No CBC ordered today We will continue to monitor this patient Charges/Coding Visit Charges Inpatient E&M: 68825 [facility] Hosp L1
[2023-12-20] MEDS: Potassium Chloride Oral Tablet 20 MEQ PO (11:29)
[2023-12-20] MEDS: HYDROcodone Bitartrate/Apap 5/325 Tablet PO (11:29)
[2023-12-20] MEDS: Senna/Docusate Sodium 1 Tablet PO (11:31)
[2023-12-20] MEDS: Aspirin E.C. 81 MG Tablet PO (11:31)
[2023-12-20] MEDS: Enoxaparin 40 MG/0.4 ML Syringe SC (11:31)
[2023-12-20] MEDS: Pantoprazole Sodium 40 MG in 0.9% Normal Saline (100mL MB+) 100 ML 330 MG IV (11:34)
--- NOTE | 2023-12-20 13:37 | DCINST_ITS ---
Discharge Instructions Diet Discharge Diet: Low fat / Low cholesterol Activity Discharge Activity: Return to Normal Activity Dressing / Incision Call your doctor if you observe: Fever of 101 or Higher, Shortness of breath, Dizziness, Fainting spells, Swelling in the ankles, Chest pain and Increased palpitations (irregular heartbeat) Follow Up Care Test Results: Test results from this visit will be discussed in further detail at your follow- up appointment, if applicable. Discharge Plan Admission Admit Date/Time: 12/17/23 00:14 Attending Provider: Igor Hdez Primary Care Provider: Kaleigh Rosas Consulting Providers: Kesha Venegas; Samreen Dunham; Viet Brizuela; Igor Hdez; Toño Sanchez Discharge Orders/Prescriptions Prescriptions: New amoxicillin-pot clavulanate 875-125 mg tablet 1 tab PO Q12H Qty: 14 0RF Continued B-complex with vitamin C Capsule 1 cap PO DAILY potassium chloride 20 mEq packet 20 meq PO DAILY calcium carbonate [Calcium 600] 600 mg calcium (1,500 mg) tablet 600 mg PO DAILY ibuprofen 200 mg tablet 400 mg PO Q6H PRN (Reason: pain) aspirin [Adult Aspirin Regimen] 81 mg tablet,delayed release (DR/EC) 81 mg PO DAILY Qty: 30 11RF rosuvastatin 20 mg tablet 20 mg PO DAILY Qty: 30 11RF lisinopril 10 mg tablet 10 mg PO DAILY Qty: 90 1RF Referrals / Follow Up: Kaleigh Rosas MD [Primary Care Provider] - Within 1 Week Baldo Tello DO [Med Staff - Active Staff] - Within 1 Month Disposition Disposition (needs filled in before D/C Order can be placed): Home, Self Care
[2023-12-20 14:56] VITALS: BP 183/100; PULSE 78; RESP 18; TEMP 36.9; O2SAT 98
--- NOTE | 2023-12-20 16:54 | PHA.DC_ITS ---
Pharmacy [place] Med Reconciliation Pharmacy Service has performed discharge medication reconciliation for this patient. Medication papers prepared, patient discharged before I was able to director of group counseling program. Medications reviewed. The patient's discharge medication list was reviewed for discrepancies and discrepancies were resolved. Medications at Discharge Home Medications B-complex with vitamin C 1 cap PO DAILY 06/16/23 calcium carbonate (Calcium 600) 600 mg PO DAILY 06/16/23 potassium chloride 20 mEq oral packet 20 meq PO DAILY 06/16/23 aspirin 81 mg tablet,delayed release (Adult Aspirin Regimen) 81 mg PO DAILY #30 tabs 07/29/23 ibuprofen 200 mg tablet 400 mg PO Q6H PRN pain 07/29/23 lisinopril 10 mg tablet 10 mg PO DAILY #90 tabs 09/23/23 rosuvastatin 20 mg tablet 20 mg PO DAILY #30 tabs 10/20/23 amoxicillin 875 mg-potassium clavulanate 125 mg tablet 1 tab PO Q12H #14 tabs 12/20/23
--- NOTE | 2023-12-20 17:27 | DS.PCM_ITS ---
Providers Date of Admission: 12/17/23 Primary Care Physician: Dr. Kaleigh Rosas MD Consultations 12/17/23 01:55 Consult: General Surgery Routine Consulting Provider: Kesha Venegas Reason for Consult: Abd pain, ileocolitis, ? early appendicitis EMERGENT Consult: No Notified: Yes Date Notified: 12/17/23 Time Notified: 00:17 Method of Notification: Text 12/17/23 07:00 Consult: Gastroenterology Routine Consulting Provider: [facility] Reason for Consult: N/V/D, ileocolitis, ? crohns EMERGENT Consult: No Notified: Yes Date Notified: 12/17/23 Time Notified: 06:57 Method of Notification: Text Reason For Visit: N/V/D, ILEOCOLITIS Diagnosis Discharge Diagnosis (1) Ileocolitis: Status: Acute Code(s): K52.9 - Noninfective gastroenteritis and colitis, unspecified Medications at Discharge Home Medications B-complex with vitamin C 1 cap PO DAILY 06/16/23 calcium carbonate (Calcium 600) 600 mg PO DAILY 06/16/23 potassium chloride 20 mEq oral packet 20 meq PO DAILY 06/16/23 aspirin 81 mg tablet,delayed release (Adult Aspirin Regimen) 81 mg PO DAILY #30 tabs 07/29/23 ibuprofen 200 mg tablet 400 mg PO Q6H PRN pain 07/29/23 lisinopril 10 mg tablet 10 mg PO DAILY #90 tabs 09/23/23 rosuvastatin 20 mg tablet 20 mg PO DAILY #30 tabs 10/20/23 amoxicillin 875 mg-potassium clavulanate 125 mg tablet 1 tab PO Q12H #14 tabs 12/20/23 Hospital Course Operations None Procedures Colonoscopy Summary of Care Provided Minutes Spent on Discharge: 33 Hospital Course: Per HPI: The patient is a 63 y/o F w/ PMHx: Tobacco use, Heavy EtOH use/EtOH abuse, HTN, CKD stage II per GFR trending, Known L carotid bruit w/ pending carotid US outpatient, RLE PAD, Gout, Severe protein calorie malnutrition who presents to the [facility] ED initially on 12/16/23 with history of abdominal discomfort with intermittent diarrhea over the last week awaking on morning on day prior with pain which is since worsened with associated nausea and emesis more tender in the bilateral lower quadrants with no rebound or guarding prompting eventual ED evaluation to be cautious. Patient reporting pain 7/10 in severity and noted to have initially reported 8/10 in severity initially upon ED arrival. Workup in the ED included T98.7, heart rate 87, BP 193/95, respiratory rate 18, 90% on room air with transient heart rate increased to 121 with most recent repeat vitals heart rate 98, BP 112/81, respiratory rate 30, 96% on room air, CBC with WBC 15.8, human 13.1, platelet 232 with left shift, CMP with BUN/creatinine 20/0.86, GFR 70, glucose 110, hepatic profile not marked appearing, lipase 27, lactic acid initial 3.6 with repeat lactic acid 1.1, urinalysis not marked appearing, CT abdomen and pelvis with contrast with concentric thickening of the delgado of multiple loops of mid to distal small bowel with thickening of the folds in association with an a hostile appearance of the ascending and transverse colon consistent possibly with ileocolitis with mild diffuse mesenteric edema and a small amount of ascites within the right paracolic gutter, mild dilatation of the appendix and possibility of early changes of acute appendicitis cannot be entirely excluded. In the ED patient ministered 2 L normal saline, morphine 4 mg IV x 2, Zofran 4 mg IV x 1 as well as IV Zosyn. Per discussion with ED they did review imaging also with Radiology directly and went over all the vasculature to assure no concerns given her PAD history. Hospital Course: #1. N/V/D with associated abdominal discomfort with CT scan concerning for ileocolitis with diffuse mesenteric edema and small amount of ascites with mild dilatation of the appendix and concern for possibility of acute appendicitis with initial lactic acidosis, improved in the ED with IV fluids, possibility of underlying IBD: Will admit to medical surgical floor, will maintain on IV fluids, will obtain C. difficile and enteric pathogens to be cautious, will obtain COVID PCR also be cautious, will continue IV Zosyn therapy, will continue to trend CBC and CMP, will have pain regimen and as needed antiemetic regimen, will maintain on IV PPI, will maintain on clear liquids until clinically improving with transition once improving, given concern on read for possibility of Crohn's disease will request gastroenterology involvement but will defer usage of steroids initially pending evaluation, will continue surgery consultation initiated per ED given concern for possibility of early appendicitis also. 12/18/2023: Continue with steroids and antibiotics, planning for colonoscopy today 12/19/2023: Cannot have colonoscopy secondary to poor prep. Leukocytosis secondary to her steroids. Hopefully will proceed with colonoscopy today if not maybe tomorrow 12/20/2023: Colonoscopy showed multiple areas of inflammation with anal fissures, in discussion with gastroenterology they felt that this was likely infectious in nature therefore they recommended discontinuation of steroids and discharging her on 7 days of Augmentin. I discussed with her the plan for discharge today she expressed understanding of the risk benefits going home and would like to go home today. She will need to follow-up with her PCP in a week and with gastroenterology in a month to follow-up with pathology results from her biopsies from her colonoscopy. 2. Essential HTN/HLD/PAD of the right lower extremity ? Continue with aspirin and lisinopril ? Continue with Crestor ? Will monitor make adjustments as necessary 3. Chronic alcohol use ? Will monitor with CIWA protocol Severe protein calorie malnutrition: Significantly reduced BMI of 16.6, concern for underlying alcohol abuse is noted which likely is contributing as well as possibility of underlying COPD that been undiagnosed given ongoing tobacco use prolonged history, magnesium and phosphorus levels requested, nutrition consulted for recommendations. Physical Exam Narrative General: Alert, Oriented x3, Cooperative, No apparent distress HEENT: Atraumatic, PERRLA, EOMI, Normocephalic Oral: Moist Mucosa Neck: Supple, No JVD Lungs: Diminished, Normal air movement, No rhonchi, No wheeze, No rales Cardiovascular: Regular rate, Regular Rhythm, Normal S1, Normal S2, No murmurs Abdomen: Soft, TTP RLQ, Non-Distended, No Hepato-splenomegaly Extremities: No edema, Capillary Refill Less than 3 Seconds Skin: No rashes, No breakdown Musculoskeletal: No Tenderness to Palpation of Joints or Extremities Neurological: No focal neurological deficits, Motor Exam 5/5 strength throughout, Sensory exam intact to light touch and pain Psych/Mental Status: Normal affect, appropriate Weight / BMI Weight Weight: 103 lb 13.404 oz Body Mass Index (BMI) 17.3 ABG / Lab / Microbiology Data 12/19/23 05:40 12/20/23 07:14 Laboratory: Laboratory Results - last 24 hr 12/20/23 07:14: Sodium 138, Potassium 3.2 L, Chloride 105, Carbon Dioxide 26.0, Anion Gap 7, BUN 19 H, Creatinine 0.73, Estim Creat Clear Calc 57.89, Est GFR (MDRD) Af Amer 104, Est GFR (MDRD) Non-Af 86, BUN/Creatinine Ratio 26.2 H, G lucose 152 H, Calcium 9.4 Microbiology: Microbiology 12/17/23 01:03 Mucosa - Nose Respiratory Panel (PCR) - Final 12/17/23 01:03 Mucosa - Nose Coronavirus COVID-19 PCR - Final D/C Instructions Discharge Diet: Low fat / Low cholesterol Call your doctor if you observe: Fever of 101 or Higher, Shortness of breath, Dizziness, Fainting spells, Swelling in the ankles, Chest pain and Increased palpitations (irregular heartbeat) Meaningful Use Info Meaningful Use Meaningful Use Diagnoses (Choose all that apply): None applicable Ischemic Stroke Statin Dosing Therapy Reference: STATIN DOSE THERAPY REFERENCE: * Patients > 75 years receive moderate or high dose statin therapy. * Patients 75 years or YOUNGER should receive HIGH intensity statin dose unless contraindicated. You will be required to document reason for non-treatment if statin daily dose does not meet guidelines. HIGH DOSE STATIN THERAPY DAILY Atorvastatin > than or = to 40 mg Rosuvastatin > than or = to 20 mg Amlodipine + Atorvastatin > than or = to 2.5/40 mg Ezetimibe + Simvastatin 10/80 mg Simvastatin 80mg Discharge Plan Admission Admit Date/Time: 12/17/23 00:14 Attending Provider: Igor Hdez Primary Care Provider: Kaleigh Rosas Consulting Providers: Kesha Venegas; Samreen Dunham; Viet Brizuela; Igor Hdez; Toño Sanchez Discharge Orders/Prescriptions Prescriptions: New amoxicillin-pot clavulanate 875-125 mg tablet 1 tab PO Q12H Qty: 14 0RF Continued B-complex with vitamin C Capsule 1 cap PO DAILY potassium chloride 20 mEq packet 20 meq PO DAILY calcium carbonate [Calcium 600] 600 mg calcium (1,500 mg) tablet 600 mg PO DAILY ibuprofen 200 mg tablet 400 mg PO Q6H PRN (Reason: pain) aspirin [Adult Aspirin Regimen] 81 mg tablet,delayed release (DR/EC) 81 mg PO DAILY Qty: 30 11RF rosuvastatin 20 mg tablet 20 mg PO DAILY Qty: 30 11RF lisinopril 10 mg tablet 10 mg PO DAILY Qty: 90 1RF Referrals / Follow Up: Kaleigh Rosas MD [Primary Care Provider] - Within 1 Week FriendBaldo DO [Med Staff - Active Staff] - Within 1 Month Disposition Disposition (needs filled in before D/C Order can be placed): Home, Self Care Charges/Coding Visit Charges Inpatient E&M: 77944 Disch Hosp >30min
--- NOTE | 2023-12-20 19:18 | PN.GI_ITS ---
Subjective Subjective Patient is doing well and is having bowel movements. She is status post colonoscopy with diagnosis of anal stenosis and likely acute on chronic ischemic colitis status post biopsies. Objective Data Objective Data Vital Signs: Vital Signs Temp Pulse Resp BP Pulse Ox O2 Del Method 98.4 F 78 18 183/100 H 98 Room Air 12/20/23 14:56 12/20/23 14:56 12/20/23 14:56 12/20/23 14:56 12/20/23 14:56 12/20/23 14:56 Oxygen Delivery Method Room Air Weight: 103 lb 13.404 oz Body Mass Index (BMI) 17.3 Intake & Output: Intake and Output for Last 24 Hours 12/18/23 12/19/23 12/20/23 23:59 23:59 23:59 Intake Total 4620 / 5420 1380.0 / 1380.0 520 / 520 Output Total 500 / 500 Balance 4120 / 4920 1380.0 / 1380.0 520 / 520 Lab / Micro Data 12/19/23 05:40 12/20/23 07:14 Labs: Laboratory Results - last 24 hr 12/20/23 07:14: Sodium 138, Potassium 3.2 L, Chloride 105, Carbon Dioxide 26.0, Anion Gap 7, BUN 19 H, Creatinine 0.73, Estim Creat Clear Calc 57.89, Est GFR (MDRD) Af Amer 104, Est GFR (MDRD) Non-Af 86, BUN/Creatinine Ratio 26.2 H, G lucose 152 H, Calcium 9.4 Micro: Microbiology 12/17/23 01:03 Mucosa - Nose Respiratory Panel (PCR) - Final 12/17/23 01:03 Mucosa - Nose Coronavirus COVID-19 PCR - Final Physical Exam Narrative General: Alert, Oriented x3, Cooperative, No apparent distress HEENT: Atraumatic, PERRLA, EOMI, Normocephalic Oral: Moist Mucosa Neck: Supple, No JVD Lungs: Diminished, Normal air movement, No rhonchi, No wheeze, No rales Cardiovascular: Regular rate, Regular Rhythm, Normal S1, Normal S2, No murmurs Abdomen: Soft, TTP RLQ, Non-Distended, No Hepato-splenomegaly Extremities: No edema, Capillary Refill Less than 3 Seconds Skin: No rashes, No breakdown Musculoskeletal: No Tenderness to Palpation of Joints or Extremities Neurological: No focal neurological deficits, Motor Exam 5/5 strength throughout, Sensory exam intact to light touch and pain Psych/Mental Status: Normal affect, appropriate Assessment & Plan Assessment/Plan (1) Ileocolitis: PLAN: Plan N/V/D with associated abdominal discomfort with CT scan concerning for ileocolitis with diffuse mesenteric edema and small amount of ascites with mild dilatation of the appendix and concern for possibility of acute appendicitis with initial lactic acidosis, improved in the ED with IV fluids, possibility of underlying IBD: She underwent colonoscopy discovered to have diffuse colitis with anal stenosis. Leading differential diagnosis ischemic colitis. I would continue antibiotics for the next 7 days and stop. Follow-up in the clinic for IBD workup to be completed. DVT: Lovenox Charges/Coding Visit Charges Inpatient E&M: 85332 Subs Hosp L3
== END 2023-12-20 15:30 | disposition home or self-care (01) | DRG 391 ==
LOC: ED 20:08 → MS3 12-17 01:06
PROVIDERS: Anesthesiology; Internal Medicine Gastroenterology; Admitting Provider Family Medicine; Emergency Provider Surgery; PCP Internal Medicine; Visit Provider Family Medicine
PROC: 0DJD8ZZ Inspection of Lower Intestinal Tract, Via Natural or Artificial Opening Endoscopic (ICD-10-PCS; CPT 45378; principal; 2023-12-19 09:00)
DX: K52.9 Noninfective gastroenteritis and colitis, unspecified (principal); E43 Unspecified severe protein-calorie malnutrition; K55.1 Chronic vascular disorders of intestine; R18.8 Other ascites; Z68.1 Body mass index [BMI] 19.9 or less, adult; I12.9 Hypertensive chronic kidney disease with stage 1 through stage 4 chronic kidney disease, or unspecified chronic kidney disease; F10.10 Alcohol abuse, uncomplicated; I73.9 Peripheral vascular disease, unspecified; F17.210 Nicotine dependence, cigarettes, uncomplicated; N18.2 Chronic kidney disease, stage 2 (mild); K60.2 Anal fissure, unspecified; E78.5 Hyperlipidemia, unspecified; K57.30 Diverticulosis of large intestine without perforation or abscess without bleeding; I25.10 Atherosclerotic heart disease of native coronary artery without angina pectoris; Z79.82 Long term (current) use of aspirin; Z79.899 Other long term (current) drug therapy; R01.1 Cardiac murmur, unspecified
CPT/HCPCS: 45380; 36415; 74177; 80048; 80053; 81001; 83605; 83690; 83735; 84100; 85025; 87633; 87635; 88305; 93005; 94668; 96361; 96365; 96366; 96372; 96375; 96376; 97802; 99221; 99284; 99406; Q9967; A4216; G0378; J2405

== ENCOUNTER → 2024-03-03 | Outpatient (CLI) | payer OTHER, SELFPAY ==
--- NOTE | 2024-03-03 11:27 | BD_ITS ---
STUDY: DUAL ENERGY X-RAY ABSORPTIOMETRY / DXA REASON FOR EXAM: Female, 63 years old. Severe osteoporosis TECHNIQUE: Bone Mineral Density (BMD) measurements of lumbar spine and bilateral hips were obtained. COMPARISON: None. FINDINGS: Lumbar Spine (L1-L4): g/cm2 (1.026) / T-score (0.1) / Z-score (1.8) Findings are suggestive of normal bone density with a low fracture risk. Left Femur Total: g/cm2 (0.655) / T-score (-2.4) / Z-score (-1.2) Left Femoral Neck: g/cm2 (0.523) / T-score (-2.9) / Z-score (-1.5) Right Femur Total: g/cm2 (0.676) / T-score (-2.2) / Z-score (-1.0) Right Femoral Neck: g/cm2 (0.554) / T-score (-2.7) / Z-score (-1.2) BD/Dexa Bone Density Study IMPRESSION: The patient is considered osteoporotic as outlined below according to World Ayad Organization (WHO) criteria with a high fracture risk. Reference Information: The T-score is the number of standard deviations above or below the standard which is normal for young adults at their peak bone mineral density. The World Health Organization (WHO) interprets the T-scores as follows: Above -1 Normal bone density Between -1 and -2.5 Osteopenia Equal to / or below -2.5 Osteoporosis As a practical clinical guideline, osteopenia may be graded as follows: Mild -1 through -1.5 Moderate -1.6 through -2.0 Severe -2.1 through -2.4 The Z-score is the number of standard deviations above or below age-matched controls. A Z-score of less than -1.5 would be considered abnormal. References: 1. NIH Osteoporosis and Related Bone Diseases www osteo.org 2. International Society for Clinical Densitometry www iscd.org 3. National Osteoporosis Foundation www nof.org Electronically Signed: Navjot Duarte MD at 12:02 EST ,
== END | disposition home or self-care (01) ==
LOC: OPBD 11:27
PROVIDERS: PCP Internal Medicine; Referring Provider Internal Medicine Gastroenterology; Visit Provider Internal Medicine Gastroenterology
DX: M81.0 Age-related osteoporosis without current pathological fracture (principal)
CPT/HCPCS: 77080

== ENCOUNTER → 2024-05-15 | Outpatient (CLI) | payer OTHER, SELFPAY ==
[2024-05-15 15:43] LABS: Absolute Lymphocyte Count 2.31 X10^3/uL (0.83-4.51); Basophil# 0.08 X10^3/uL; Eosinophil# 0.17 X10^3/uL; Eosinophils% 2.1 % (0-5); Hematocrit 41.2 % (37-47); Lymphocyte # 2.31 X10^3/ul (0.83-4.51); Lymphocyte % 28.4 % (19-41); Mean Corp Hgb Conc 31.6 g/dL (32-36); Mean Corpuscular Hgb 31.6 pg (27.0-32.0); Mean Corpuscular Volume 100.2 fL (81-99); Mean Platelet Vol. 10.5 fl (6.2-12.0); Monocyte# 0.57 X10^3/uL; NRBC Flagged by Analyzer 0 % (0-5); Neutrophil # 4.97 X10^3/uL (2.7-7.7); Neutrophil % 61.3 % (47-70); Platelet Count 264 K/mm3 (150-450); RBC Distribution Width CV 15.5 % (11.6-14.6); RBC Distribution Width SD 56.6 fl (35.1-43.9); Red Blood Count 4.11 M/mm3 (4.2-5.4); White Blood Count 8.1 K/mm3 (4.4-11.0)
[2024-05-15 15:54] LABS: Vitamin D,25 Hydroxy 10.8 ng/mL
[2024-05-15 16:04] LABS: AST(SGOT) 30 U/L (15-37); Alanine Aminotransfer ALT/SGPT 45 U/L (13-56); Albumin, Serum 3.8 g/dL (3.2-5.0); Alkaline Phosphatase 63 U/L (45-117); Anion Gap 6 (5-15); BUN 20 mg/dL (7-18); BUN/Creat Ratio 31.2 RATIO (10-20); Calcium,Total 9.4 mg/dL (8.5-10.1); Chloride 104 mmol/L (98-107); Cholesterol 141 mg/dL (200); Creatinine, Serum 0.64 mg/dL (0.55-1.02); EST Glomerular Filtration Rate 99 mL/min (>60); Est Glom Filt Rate - Afr Amer 119 mL/min (>60); Globulin 3.9 g/dL (2.2-4.2); Glucose 92 mg/dL (74-106); High Density Lipoprotein 65 mg/dL; Potassium 4.6 mmol/L (3.5-5.1); Protein, Total 7.7 g/dL (6.4-8.2); Sodium Level 136 mmol/L (136-145); Triglycerides 245 mg/dL; Very Low Density Lipoprotein 49 mg/dL (5-40)
[2024-05-15 17:40] LABS: Hemoglobin A1c 5.6 % (3.8-5.6)
== END | disposition home or self-care (01) ==
LOC: BIMLAB 11:26
PROVIDERS: PCP Internal Medicine; Referring Provider Internal Medicine; Visit Provider Internal Medicine
DX: M81.0 Age-related osteoporosis without current pathological fracture (principal); I10 Essential (primary) hypertension; R73.09 Other abnormal glucose
CPT/HCPCS: 36415; 80053; 80061; 82306; 83036; 85025

== ENCOUNTER → 2024-06-09 | Outpatient (CLI) | payer OTHER, SELFPAY ==
--- NOTE | 2024-06-09 14:57 | CDU_ITS ---
Reason For Study Reason For Study: LEFT CAROTID BRUIT Rt. Velocities/BP Lt. Velocities/BP Prox CCA 86.4/23.7 cm/sec. Prox CCA 81.8/25.3 cm/sec. Mid CCA 64.4/19.3 cm/sec. Mid CCA 106.3/35.1 cm/sec. Dist CCA 58.9/18.2 cm/sec. Dist CCA 87.9/32.7 cm/sec. Prox ICA 136.3/44.9 cm/sec. Prox ICA 63.7/20.8 cm/sec. Mid ICA 125.3/35.8 cm/sec. Mid ICA 84.6/31.8 cm/sec. Dist ICA 136.3/52.2 cm/sec. Dist ICA 88.3/34.3 cm/sec. Rt. ICA/CCA = 2.1. Lt. ICA/CCA = 88.3/106.3=0.8. Prox ECA 88.8/19.4 cm/sec. Prox ECA 205.6/27.8 cm/sec. Rt. Vert. 45.0/14.2 cm/sec. Lt. Vert. 93.2/23.2 cm/sec. Right Extracranial There is homogeneous, smooth atherosclerotic plaque noted in the right common carotid artery. There is heterogeneous, irregular atherosclerotic plaque noted in the right internal carotid artery. There is heterogeneous, smooth atherosclerotic plaque noted in the right external carotid artery. Antegrade flow is noted in the right vertebral artery. Left Extracranial There is homogeneous, smooth atherosclerotic plaque noted in the left common carotid artery. There is heterogeneous, irregular atherosclerotic plaque noted in the left internal carotid artery. There is heterogeneous, irregular atherosclerotic plaque noted in the left external carotid artery. Antegrade flow is noted in the left vertebral artery. Procedure Carotid Duplex 85460. This is a Carotid Duplex examination using B-mode, color flow and specral Doppler. Exam performed in department. VL/Carotid Duplex Ultrasound Interpretation Summary Moderate (50-69%) stenosis right extracranial internal carotid. Mild (<50%) stenosis left extracranial internal carotid. Patent and antegrade vertebrals bilaterally. Incidental finding, subcutaneous left lateral neck nodule Ordering Physician: Ute Ansari Referring Physician: Kaleigh Rosas Performed By: Madeline Velasquez, CHAYO, RVT
== END | disposition home or self-care (01) ==
LOC: CVS 14:56
PROVIDERS: PCP Internal Medicine; Referring Provider Physician Assistant; Visit Provider Physician Assistant
DX: R09.89 Other specified symptoms and signs involving the circulatory and respiratory systems (principal)
CPT/HCPCS: 93880

== ENCOUNTER → 2024-07-12 | Outpatient (CLI) | payer OTHER, SELFPAY | END | disposition home or self-care (01) | LOC: BIMLAB 15:54 | PROVIDERS: PCP Internal Medicine; Referring Provider Internal Medicine; Visit Provider Internal Medicine | DX: E55.9 Vitamin D deficiency, unspecified (principal) | CPT/HCPCS: 36415; 82306 ==

== ENCOUNTER → 2024-09-04 | Outpatient (CLI) | payer MEDICARE, SELFPAY ==
--- NOTE | 2024-09-04 09:51 | ART_ITS ---
Reason For Study Reason For Study: Claudication Procedure A bilateral lower extremity continuous wave Doppler with analog waveform analysis,segmental pressures,and ankle brachial indexes without exercise. Did not walk patient due to abnormal CARLEY. Left Segmental Pressures Left brachial= 147mmHg. Left high thigh = 153mmHg. Left low thigh = 143mmHg. Left calf = 131mmHg. Left posterior tibial artery = 73mmHg. Left dorsalis pedis artery = 135mmHg. Left digit = 68 mmHg. The left dorsalis pedis waveforms are biphasic. The left posterior tibial artery waveforms are monophasic. Right Segmental Pressures Right brachial= 166mmHg. Right high thigh = 107mmHg. Right low thigh = 86mmHg. Right calf = 72mmHg. Right posterior tibial artery = 65mmHg. Right dorsalis pedis artery = 60mmHg. Right digit = 45 mmHg. The right dorsalis pedis waveforms are monophasic. The right posterior tibial artery waveforms are monophasic. Indices The right ankle brachial index by the dorsalis pedis is 0.36. The right ankle brachial index by the posterior tibial artery is 0.39. The right digital-brachial index is 0.27. The left ankle brachial index by the dorsalis pedis is 0.81. The left ankle brachial index by the posterior tibial artery is 0.44. The left digital-brachial index is 0.41. . Preliminary report given to JARAD caballero. VL/Lower Ext Art Exam w/o Exercis Interpretation Summary Right CARLEY 0.39, severe arterial insufficiency. Doppler/PVR waveforms and segmen tarah pressures reveal aorto-iliac and proximal femoral disease. Left CARLEY 0.81, moderate arterial insufficieny. Doppler/PVR waveforms and segmen tarah pressures reveal aorto-iliac disease. Ordering Physician: Ute Ansari Referring Physician: Kaleigh Rosas Performed By: Nichole Rodriguez RVT
--- OUTSIDE RECORDS SUMMARY | 2024-09-04 21:29 | XMS RPT_ITS | CCD ---
Author Organization [facility] Care Team Providers Care [employer] Teacher Name Role Phone Dr. Kaleigh Rsoas Primary Care Provider Dr. Kaleigh Rosas Attending Provider [phone] Kaleigh Rosas Referring Provider [phone] Toño Michele Attending Provider [phone] Dr. Kaleigh Rosas MD Primary Care Provider [phone] Dr. Baldo Tello DO Attending Provider Dr. Baldo Tello DO Referring Provider Dr. Kaleigh Rosas MD Attending Provider Dr. Kaleigh Rosas MD Referring Provider Ute Leavitt Attending Provider [phone] Ute Leavitt Referring Provider [phone] Dr. Toño Michele MD Attending Provider [phone] Dr. Kaleigh Rosas MD Primary Care Provider [phone] Kaleigh Rosas Referring Unavailable Taylor, Kaleigh Primary Care Unavailable Ute Ansari Attending Unavailable Ralph, Kaleigh Primary Care Unavailable Toño Michele Attending Unavailable Ute Ansari Referring Unavailable Robotamber, Kesha Consulting Unavailable Baldo Tello Attending Unavailable Samreen Dunham Admitting Unavailable Taylor, Kaleigh Primary Care Unavailable Igor Hdez Referring Unavailable Samreen Dunham Consulting Unavailable Viet Brizuela Consulting Unavailable Igor Hdez Consulting Unavailable Toño Sanchez Consulting Unavailable Samreen Dunham Referring Unavailable Ralph, Kaleigh Referring Unavailable Taylor, Kaleigh Attending Unavailable Taylor, Kaleigh Primary Care Unavailable Taylor, Kaleigh Primary Care Unavailable Ansari, Ute Attending Unavailable Ansari, Ute Referring Unavailable Samreen Dunham L Admitting Unavailable Robotham, Kesha Consulting Unavailable Ralph, Kaleigh Primary Care Unavailable Igor Hdez Attending Unavailable White, Samreen L Consulting Unavailable Gelacio, Viet Consulting Unavailable Igor Hdez Consulting Unavailable Toño Sanchez Consulting Unavailable Ralph, Kaleigh Primary Care Unavailable Ansari, Ute Attending Unavailable Ansari, Ute Referring Unavailable José Manuel Whiteside Attending Unavailable Gelacio, Viet Referring Unavailable Taylor, Kaleigh Primary Care Unavailable Mark Rivera Attending Unavailable Ralph, Kaleigh Primary Care Unavailable Ralph, Kaleigh Referring Unavailable Ansari, Ute Attending Unavailable Ralph, Kaleigh Referring Unavailable Taylor, Kaleigh Attending Unavailable Ralph, Kaleigh Primary Care Unavailable Ralph, Kaleigh Primary Care Unavailable Taylor, Kaleigh Referring Unavailable Ralph, Kaleigh Attending Unavailable Eriberto King Attending Unavailable Taylor, Kaleigh Referring Unavailable Ralph, Kaleigh Primary Care Unavailable Omer, Baldo Attending Unavailable Taylor, Kaleigh Referring Unavailable Taylor, Kaleigh Primary Care Unavailable Igor Hdez Attending Unavailable Kirstin Brar Attending Unavailable Taylor, Kaleigh Primary Care Unavailable Ralph, Kaleigh Referring Unavailable Taylor, Kaleigh Attending Unavailable Ralph, Kaleigh Primary Care Unavailable Samreen Dunham Attending Unavailable Friend, Baldo Attending Unavailable Friend, Baldo Referring Unavailable Taylor, Kaleigh Primary Care Unavailable Robotham, Kesha Attending Unavailable FriendPanchitoBaldo Attending Unavailable Ralph, Kaleigh Primary Care Unavailable Igor Hdez Referring Unavailable Toño Michele Attending Unavailable Taylor, Kaleigh Primary Care Unavailable Medications Current Medications Medication Drug Class(es) Dates Sig (Normalized) Sig (Original) aspirin 81 mg delayed release oral tablet (2 sources) Platelet Aggregation Inhibitor, Nonsteroidal Anti-inflammatory Drug Start: 07-29-2023 take 1 tablet by mouth once daily Aspirin (Adult Aspirin Regimen) 81 mg tablet,delayed release (DR/EC) Active 81 mg PO DAILY July 29, 2023 12:00am B-Complex With Vitamin C (2 sources) Start: 06-16-2023 take 1 capsule by mouth once daily B-Complex With Vitamin C Active 1 CAP PO DAILY June 16, 2023 12:00am B-Complex With Vitamin C capsule (2 sources) Start: 06-16-2023 B-Complex With Vitamin C capsule Active 1 NMA PO DAILY June 16, 2023 12:00am cholecalciferol 1.25 mg oral capsule (2 sources) Vitamin D Start: 05-15-2024 take 1 capsule by mouth every week Cholecalciferol (Vitamin D3) 1,250 mcg (50,000 unit) capsule Active 1250 ug PO EVERY WEEK May 15, 2024 1:00am 1 ml denosumab 60 mg/ml prefilled syringe (2 sources) RANK Ligand Inhibitor Start: 05-15-2024 Denosumab (Prolia) 60 mg/mL syringe Active 60 mg SC every 6 months May 15, 2024 1:00am lisinopril 20 mg oral tablet (10 sources) Angiotensin Converting Enzyme Inhibitor Start: 05-15-2024 take 1 tablet by mouth once daily Lisinopril 20 mg tablet Active 20 mg PO DAILY May 15, 2024 12:11pm Start: 07-29-2023 End: 05-15-2024 take 1 tablet by mouth once daily Lisinopril 10 mg tablet Discontinued 10 mg PO DAILY April 05, 2024 4:58pm May 15, 2024 12:19pm Potassium Cl-Calcium Phos-Mag 40-18-9 mg tablet (2 sources) Start: 05-15-2024 Potassium Cl-Calcium Phos-Mag 40-18-9 mg tablet Active 2 {tbl} PO before meals May 15, 2024 1:00am rosuvastatin calcium 20 mg oral tablet (4 sources) HMG-CoA Reductase Inhibitor Start: 07-29-2023 End: 10-20-2023 take 1 tablet by mouth once daily Rosuvastatin 20 mg tablet Active 20 mg PO DAILY October 20, 2023 4:12pm Completed/Discontinued Medications Medication Drug Class(es) Dates Sig (Normalized) Sig (Original) amoxicillin 875 mg / clavulanate 125 mg oral tablet (2 sources) Penicillin-class Antibacterial Start: 12-20-2023 End: 12-31-2023 Amoxicillin-Pot Clavulanate 875-125 mg tablet Discontinued 1 {tbl} PO Q12H December 20, 2023 12:00am December 31, 2023 11:38am calcium carbonate 1500 mg oral tablet (4 sources) Start: 06-16-2023 End: 05-15-2024 take 1 tablet by mouth once daily Calcium Carbonate (Calcium 600) 600 mg calcium (1,500 mg) tablet Discontinued 600 mg PO DAILY June 16, 2023 12:00am May 15, 2024 11:38am cilostazol 50 mg oral tablet (2 sources) Phosphodiesterase 3 Inhibitor Start: 07-29-2023 End: 10-20-2023 take 1 tablet by mouth twice daily Cilostazol 50 mg tablet Discontinued 50 mg PO TWICE A DAY July 29, 2023 12:00am October 20, 2023 4:00pm ibuprofen 200 mg oral tablet (2 sources) Nonsteroidal Anti-inflammatory Drug Start: 07-29-2023 End: 06-14-2024 take 2 tablets by mouth every six hours as needed for pain Ibuprofen 200 mg tablet Discontinued 400 mg PO EVERY 6 HOURS as needed for pain July 29, 2023 12:00am June 14, 2024 1:29pm mirtazapine 30 mg oral tablet (2 sources) Start: 01-17-2024 End: 05-15-2024 take 1 tablet by mouth at bedtime Mirtazapine 30 mg tablet Discontinued 30 mg PO AT BEDTIME January 17, 2024 12:00am May 15, 2024 11:35am Multivitamin tablet (2 sources) Start: 07-29-2023 End: 12-17-2023 Multivitamin tablet Discontinued 1 {tbl} PO DAILY July 29, 2023 12:00am December 17, 2023 12:12am 24 hr nicotine 0.875 mg/hr transdermal system (2 sources) Cholinergic Nicotinic Agonist Start: 08-02-2023 End: 12-16-2023 apply 1 dose transdermal route every twenty-four hours Nicotine 21 mg/24 hr patch 24 hour Discontinued 1 NMA TD DAILY August 02, 2023 12:00am December 16, 2023 10:41pm potassium chloride 20 meq powder for oral solution (4 sources) Start: 06-16-2023 End: 05-15-2024 take 20 mEq by mouth once daily Potassium Chloride 20 mEq packet Discontinued 20 meq PO DAILY June 16, 2023 12:00am May 15, 2024 11:36am predniSONE 20 mg oral tablet (2 sources) Start: 01-17-2024 End: 05-15-2024 take 1 tablet by mouth once daily Prednisone 20 mg tablet Discontinued 20 mg PO daily January 17, 2024 12:00am May 15, 2024 11:38am Problems Active Problems Problem Classification Problem Date Documented Date Episodic/Chronic Acquired foot deformities (2 sources) Bunion of right foot; Translations: [Bunion] 06-16-2023 Episodic Administrative/social admission (2 sources) Persons encountering health services in other specified circumstances; Translations: [Other reasons for seeking consultation] 06-16-2023 Episodic Essential hypertension (9 sources) Essential hypertension; Translations: [Essential (primary) hypertension] Onset: 06-20-2024 04-13-2024 Chronic Nutritional deficiencies (1 source) Vitamin D deficiency, unspecified; Translations: [Vitamin D deficiency, unspecified] Onset: 07-17-2024 Chronic Osteoporosis (5 sources) Osteoporosis; Translations: [Age-related osteoporosis without current pathological fracture] Onset: 05-26-2024 05-15-2024 Chronic Other circulatory disease (4 sources) Disorder of carotid artery; Translations: [Disorder of arteries and arterioles, unspecified] 06-14-2024 Chronic Other circulatory disease (2 sources) Carotid bruit; Translations: [Other specified symptoms and signs involving the circulatory and respiratory systems] 12-17-2023 Episodic Other circulatory disease (1 source) Other specified symptoms and signs involving the circulatory and respiratory systems; Translations: [Other specified symptoms and signs involving the circulatory and respiratory systems] Onset: 06-20-2024 Episodic Other connective tissue disease (2 sources) Pain in left foot; Translations: [Pain in limb] 06-16-2023 Episodic Other connective tissue disease (2 sources) Pain in right lower leg; Translations: [Pain in limb] 06-16-2023 Episodic Other skin disorders (2 sources) Other seborrheic keratosis; Translations: [Other seborrheic keratosis] 06-16-2023 Episodic Peripheral and visceral atherosclerosis (9 sources) Atherosclerosis of arteries of the extremities; Translations: [Atherosclerosis of makah arteries of extremities with intermittent claudication, right leg] Onset: 09-04-2024 12-17-2023 Chronic Comment on above: CARLEY 07/13/23: R CARLEY 0 .5 with monophasic waveforms; L CARLEY 0.95 with biphasic waveforms Residual codes; unclassified (2 sources) Procedure and treatment not carried out because of patient's decision for unspecified reasons; Translations: [Surgical or other procedure not carried out because of patient's decision] 06-16-2023 Episodic Residual codes; unclassified (2 sources) Immunization not carried out because of patient refusal; Translations: [Vaccination not carried out because of patient refusal] 06-16-2023 Episodic Substance-related disorders (4 sources) Nicotine dependence, cigarettes, uncomplicated; Translations: [Tobacco use disorder] 06-16-2023 Chronic Unclassified (2 sources) Z12.4 - Encounter for screening for malignant neoplasm of cervix Past or Other Problems Problem Classification Problem Date Documented Date Episodic/Chronic Abdominal pain (1 source) Unspecified abdominal pain; Translations: [Unspecified abdominal pain] Onset: 04-25-2024 Episodic Diabetes mellitus without complication (3 sources) Increased glucose level; Translations: [Other abnormal glucose] Onset: 05-15-2024 05-15-2024 Episodic Immunizations and screening for infectious disease (7 sources) Patient encounter status; Translations: [Encounter for screening for COVID-19] Onset: 05-15-2024 06-15-2023 Episodic Noninfectious gastroenteritis (5 sources) Crohn's disease; Translations: [Noninfective gastroenteritis and colitis, unspecified] Onset: 04-25-2024 12-17-2023 Episodic Other screening for suspected conditions (not mental disorders or infectious disease) (7 sources) Encounter for screening for diabetes mellitus; Translations: [Screening for diabetes mellitus] Onset: 05-15-2024 06-16-2023 Episodic Results Test Name Value Interpretation Reference Range Facility Lower Ext Art Exam w/o Exerc jolanta 09-04-2024 Lower Ext Art Exam w/o Exercis [facility] [address] [place] [address] Lower Ext Art Exam w/o Exercis 09/04/24 0953 MR#: [id number] Acct: [id number] Name: AVIS PAYNE Rep #: [id number] : 1960 64 From: oTño Michele MD Attending Dr: HUANG Russell Status: REG CLI Ordering Dr: Ute Ansari Date: 09/04/24 Location: [facility] Sex: F C Admitted: Reason For Study Reason For Study: Claudication Procedure A bilateral lower extremity continuous wave Doppler with analog waveform analysis,segmental pressures,and ankle brachial indexes without exercise. Did not walk patient due to abnormal CARLEY. Left Segmental Pressures Left brachial= 147mmHg. Left high thigh = 153mmHg. Left low thigh = 143mmHg. Left calf = 131mmHg. Left posterior tibial artery = 73mmHg. Left dorsalis pedis artery = 135mmHg. Left digit = 68 mmHg. The left dorsalis pedis waveforms are biphasic. The left posterior tibial artery waveforms are monophasic. Right Segmental Pressures Right brachial= 166mmHg. Right high thigh = 107mmHg. Right low thigh = 86mmHg. Right calf = 72mmHg. Right posterior tibial artery = 65mmHg. Right dorsalis pedis artery = 60mmHg. Right digit = 45 mmHg. The right dorsalis pedis waveforms are monophasic. The right posterior tibial artery waveforms are monophasic. Indices The right ankle brachial index by the dorsalis pedis is 0.36. The right ankle brachial index by the posterior tibial artery is 0.39. The right digital-brachial index is 0.27. The left ankle brachial index by the dorsalis pedis is 0.81. The left ankle brachial index by the posterior tibial artery is 0.44. The left digital-brachial index is 0.41. . Preliminary report given to JARAD caballero. VL/Lower Ext Art Exam w/o Exercis Interpretation Summary Right CARLEY 0.39, severe arterial insufficiency. Doppler/PVR waveforms and segmental pressures reveal aorto-iliac and proximal femoral disease. Left CARLEY 0.81, moderate arterial insufficieny. Doppler/PVR waveforms and segmental pressures reveal aorto-iliac disease. Ordering Physician: Ute Ansari Referring Physician: Kaleigh Rosas Performed By: Nichole Rodriguez RVT 09/04/24 1217 Date Toño Michele MD CC: Ute Ansari PA; Dr. Kaleigh Rosas MD Date Dictated: 09/04/24952 Date Transcribed: 09/04/241216 Body Worker: Signed Normal [facility] Vitamin D, 25-hydroxyOrdered By: Kaleigh Rosas on 07-12-2024 Vitamin D 25-Hydroxy 113.0 ng/mL High 30-100 [facility] Comment on above: Vitamin D StatusDefi ciency: <20 ng/mL (50nmol/L)Insufficiency: 20-30 ng/mL (50-75 nmol/L)Sufficiency: 30-100 ng/mL (75-250 nmol/L)Toxicity: >100 ng/mL (>250 nmol/L) Vitamin D,25 Hydroxyon 07-12 Vitamin D 25-OH 113.0 ng/mL High 30-100 [facility] Comment on above: Result Comment: Justina min D Status Deficiency: <20 ng/mL (50nmol/L) Insufficiency: 20-30 ng/mL (50-75 nmol/L) Sufficiency: 30-100 ng/mL (75-250 nmol/L) Toxicity: >100 ng/mL (>250 nmol/L) Performed By: #### L 503.6005, L501.2450 #### [facility] [address] [place], [address] Duplex ultrasound of carotid artery reportOrdered By: Toño Michele on 06-19-2024 Study report [facility] [address] [place] [address] Carotid Duplex Ultrasound 06/09/24 1500 MR#: [id number] Acct: [id number] Name: AVIS PAYNE Rep #:[id number] : 1960 63 From: Toño Farfan Attending Dr: HUANG Russell Stat us: REG CLI Ordering Dr: Ute Ansari Date: Location: [facility] Sex: F C Admitted: Reason For Study Reason For Study: LEFT CAROTID BRUIT Rt. Velocities/BP Lt. Velocities/BP Prox CCA 86.4/23.7 cm/sec. Prox CCA 81.8/25.3 cm/sec. Mid CCA 64.4/19.3 cm/sec. Mid NNC780.3/35.1 cm/sec. Dist CCA 58.9/18.2 cm/sec. Dist CCA 87.9/32.7 cm/sec. Prox ICA 136.3/44.9 cm/sec. Prox ICA 63.7/20.8 cm/sec. Mid ICA 125.3/35.8 cm/sec. Mid ICA84.6/31.8 cm/sec. Dist ICA 136.3/52.2 cm/sec. Dist ICA 88.3/34.3 cm/sec. Rt. ICA/CCA = 2.1. Lt. ICA/CCA = 88.3/106.3=0.8. Prox ECA 88.8/19.4 cm/sec. Prox ECA 205.6/27.8 cm/sec. Rt. Vert. 45.0/14.2 cm/sec. Lt. Vert. 93.2/23.2 cm/sec. Right Extracranial There is homogeneous, smooth atherosclerotic plaque noted in the right common carotid artery. There is heterogeneous, irregular atherosclerotic plaque noted in the right internal carotid artery. There is heterogeneous, smooth atherosclerotic plaque noted in the right external carotid artery. Antegrade flow is noted in the right vertebral artery. Left Extracranial There is homogeneous, smooth atherosclerotic plaque noted in the left common carotid artery. There is heterogeneous, irregular atherosclerotic plaque noted in the left internal carotid artery. There is heterogeneous, irregular atherosclerotic plaque noted in the left external carotid artery. Antegrade flowis noted in the left vertebral artery. Procedure Carotid Duplex 14122. This is a Carotid Duplex examination using B-mode, color flow and specral Doppler. Exam performed in department. VL/Carotid Duplex Ultrasound Interpretation Summary Moderate (50-69%) stenosis right extracranial internal carotid. Mild (<50%) stenosis left extracranial internal carotid. Patent and antegrade vertebrals bilaterally. Incidental finding, subcutaneous left lateral neck nodule Ordering Physician: Ute Ansari Referring Physician: Kaleigh Rosas Performed By: Madeline Velasquez RDCS, RVT 06/19/24 1229 Date _ Toño Michele MD CC: HUANG Russell; Dr. Kaleigh Rosas MD ~ Date Dictated: 06/09/24 1500 Date Transcribed: 06/19/24 1229 Body Worker: Signed [facility] Work Phone: MR/BMSZaria 06-14-2024 MR/BMS.S [facility] [address] [place] [address]. [address] [place] [address] OFFICE VISIT Date of Service: 06/14/24 MR#: [id number] Acct: [id number] Name: AVIS PAYNE SUSY Rep #: [id number] : 1960 Provider: HUANG Russell Age/Sex: 63/F Location: [facility] Status: Signed Intake Vital Signs 05/15/24 10:39 06/14/24 13:27 Height 5 ft 2 in Weight: 97 lb 4 oz BP 137/93 H Blood Pressure Location Lt brachial Position Sitting Respiration 16 Pulse 71 Pulse Source Monitor Temp 98 F Temp Source Temporal Pulse Oximetry (%) 100 Oxygen Delivery Method room air Intake Visit Reasons: Discuss US and procedure Is patient in pain?: No Allergies No Known Allergies Allergy (Verified 06/14/24 13:29) Medications ???Medication ???Instructions ???Recorded ???Confirmed ???Type B-complex with vitamin C 1 cap PO DAILY 06/16/23 06/14/24 H istory aspirin 81 mg tablet,delayed 81 mg PO DAILY #30 tabs 07/29/23 0 06/14/24 Rx release (Adult Aspirin Regimen) rosuvastatin 20 mg tablet 20 mg PO DAILY #30 tabs 10/20/23 0 06/14/24 Rx cholecalciferol (vitamin D3) 1,250 1,250 mcg PO QWEEK #8 caps 05/1506/14/24 Rx mcg (50,000 unit) capsule denosumab 60 mg/mL subcutaneous 60 mg subcut [id number] #1 mL 06/14/24 Rx syringe (Prolia) lisinopril 20 mg tablet 20 mg PO DAILY #90 tabs 05/15/24 0 06/14/24 Rx potassium Cl-calcium phos-mag 40 2 tab PO QAC 05/15/24 06/14/24 His tory mg-18 mg-9 mg tablet Is last menstrual period known: No Post menopausal: Yes Patient : No Have you fallen in the past year?: No PFSH Medical History Smoker CKD (chronic kidney disease), stage II Heavy alcohol use Tobacco use PAD (peripheral artery disease) Hypertension Atherosclerosis of right lower extremity with intermittent claudication Left carotid bruit Gout Surgical History No pertinent past surgical history Family History Grandmother Diabetes Mother Kidney disease Heart disease Father Heart disease Social History (Updated 06/14/24 @ 13:27 by Talita Erickson) household members: spouse housing: house current occupational status: employed current occupation: [employer] Smoking Status: Current some day smoker Tobacco: How many years used: 40 Electronic Cigarette Use: not used alcohol intake: current alcohol intake frequency: 0-2 drinks per day Alcohol type: hard liquor details: a couple martinis a night substance use type: marijuana what type of physical activity do you participate in: walking and weight training frequency: 3-4 times per week seatbelt use: always do you feel safe at home: Yes HPI HPI HPI: AVIS PAYNE, is a 63 F who presents to the office today for follow-up of RLE PAD and claudication and also to follow-up on results of recent carotid duplex (ordered secondary to bruit on exam). Recall that CARLEY testing 07/13/23 revealed R CARLEY 0.5 with monophasic waveforms; L CARLEY 0.95 with biphasic waveforms. She did not tolerate pletal. At last OV, plan was to continue structured exercise. She reports that her RLE claudication has been stable. She does okay with activities around the house, her claudication is limiting when she has to go out to the grocery etc and then she notices cramping in her R calf and has to rest after about 150-200 feet. She does not have any rest/nocturnal pain or nonhealing wounds. She had carotid duplex on 06/09/24; official results not yet available but reviewed preliminary report which demonstrates <50% L ICA stenosis and 50-69% R ICA stenosis (by velocity, at the low end of that range). She does not have any history of CVA/TIA or prior carotid surgery. She denies any episodes of focal neurologic symptoms. She continues to take and tolerate ASA and statin without issue. She does continue to smoke. ROS General General: No weight change, appetite, fatigue, colon cancer, breast cancer or weakness HEENT HEENT: No difficulty swallowing, eye injury, eye surgery, swollen glands or hoarseness Endo Endocrine: No thyroid disease, diabetes mellitus, thyroid cancer, Hair loss, heat intolerance or cold intolerance Skin Skin: No rash or changing moles Musc Musculoskeletal: Yes back problems; No arthritis, rheumatoid arthritis, gout or joint pain Cardio Cardiovascular: Yes high blood pressure; No murmur, pacemaker, heart disease, atrial fibrillation, heart attack, heart stent, palpitations, shortness of breath with exertion or chest pain Psych Psychiatric: No depression, anxiety or hearing voices Resp Respiratory: No shortness of breath, No sleep apnea, No cough, No COPD (more content not included)... Normal [facility] Office Visit Reporton 2024 Office Visit Report [facility] [address] [place] [address] OFFICE VISIT Date of Service: 06/12/24 MR#: [id number] Acct: [id number] Patient: AVIS PAYNE Rep #: [id number] : 1960 Provider: ANGEL NURSE Age/Sex: 63/F Location: [facility] Status: Signed Intake Vital Signs 05/15/24 10:39 06/12/24 14:07 06/12/24 14:09 Height 5 ft 2 in Weight: 102 lb BMI 18.6 BP 144/78 H 154/95 H 120/66 Blood Pressure Location Lt brachial Lt radial Lt brachial Position Sitting Sitting Sitting Respiration 16 Pulse 60 Pulse Source Monitor Temp 97.5 F L Temp Source Temporal Pulse Oximetry (%) 97 Oxygen Delivery Method room air Comment pt checked her blood pressure with home cuff manual BP checked by this nurse. Intake Visit Reasons: bp chk Chief Complaint: wch er f/u Allergies No Known Allergies Allergy (Verified 05/15/24 10:34) Assessment and Plan Assessment and Plan (1) Essential hypertension: Status: Acute 06/12/24 1519 Date Kaleigh Rosas MD Cosigner Signature: Date (if applicable) CC: Normal [facility] Carotid Duplex Ultrasoundon 06-09-2024 Carotid Duplex Ultrasound [facility] [address] [place] [address] Carotid Duplex Ultrasound 06/09/24 1500 MR#: [id number] Acct: [id number] Name: AVIS PAYNE Rep #: [id number] : 1960 63 From: Toño Michele MD Attending Dr: HUANG Russell Status: REG CLI Ordering Dr: Ute Ansari Date: 06/09/24 Location: [facility] Sex: F C Admitted: Reason For Study Reason For Study: LEFT CAROTID BRUIT Rt. Velocities/BP Lt. Velocities/BP Prox CCA 86.4/23.7 cm/sec. Prox CCA 81.8/25.3 cm/sec. Mid CCA 64.4/19.3 cm/sec. Mid CCA 106.3/35.1 cm/sec. Dist CCA 58.9/18.2 cm/sec. Dist CCA 87.9/32.7 cm/sec. Prox ICA 136.3/44.9 cm/sec. Prox ICA 63.7/20.8 cm/sec. Mid ICA 125.3/35.8 cm/sec. Mid ICA 84.6/31.8 cm/sec. Dist ICA 136.3/52.2 cm/sec. Dist ICA 88.3/34.3 cm/sec. Rt. ICA/CCA = 2.1. Lt. ICA/CCA = 88.3/106.3=0.8. Prox ECA 88.8/19.4 cm/sec. Prox ECA 205.6/27.8 cm/sec. Rt. Vert. 45.0/14.2 cm/sec. Lt. Vert. 93.2/23.2 cm/sec. Right Extracranial There is homogeneous, smooth atherosclerotic plaque noted in the right common carotid artery. There is heterogeneous, irregular atherosclerotic plaque noted in the right internal carotid artery. There is heterogeneous, smooth atherosclerotic plaque noted in the right external carotid artery. Antegrade flow is noted in the right vertebral artery. Left Extracranial There is homogeneous, smooth atherosclerotic plaque noted in the left common carotid artery. There is heterogeneous, irregular atherosclerotic plaque noted in the left internal carotid artery. There is heterogeneous, irregular atherosclerotic plaque noted in the left external carotid artery. Antegrade flow is noted in the left vertebral artery. Procedure Carotid Duplex 59737. This is a Carotid Duplex examination using B-mode, color flow and specral Doppler. Exam performed in department. VL/Carotid Duplex Ultrasound Interpretation Summary Moderate (50-69%) stenosis right extracranial internal carotid. Mild (<50%) stenosis left extracranial internal carotid. Patent and antegrade vertebrals bilaterally. Incidental finding, subcutaneous left lateral neck nodule Ordering Physician: Ute Ansari Referring Physician: Kaleigh Rosas Performed By: Madeline Velasquez, RDCS, RVT 06/19/24 1229 Date Toño Michele MD CC: HUANG Russell; Dr. Kaleigh Rosas MD Date Dictated: 06/09/24 1500 Date Transcribed: 06/19/24 1229 Body Worker: Signed Normal [facility] [id number] DOrdered By: Garrett Rosas on 05-15-2024 Vitamin D 25-Hydroxy 10.8 ng/mL [facility] Comment on above: Vitamin D 25(OH) Sta tus Range Deficiency <20 ng/mL (50nmol/L) Insufficiency 20 - 30 ng/mL (50 - 75 nmol/L) Sufficiency 30 - 100 ng/mL (75 - 250 nmol/L) Toxicity >100 ng/mL (>250 nmol/L) Absolute neutrophil countOrd ered By: Kaleigh Rosas on 05-15-2024 Neutrophils (Bld) [#/Vol] 5.0 10*3/uL 2.0-7.7 [facility] Albumin to globulin ratioOrd ered By: Kaleigh Rosas on 05-15-2024 Albumin/Globulin [Mass ratio] 1.0 {ratio} 0.9-2.4 [facility] Basophil percentageOrdered B y: Kaleigh Rosas on 05-15-2024 Basophils/100 WBC (Bld) 1.0 % 0-1 [facility] Bilirubin, totalOrdered By: Kaleigh Rosas on 05-15-2024 Bilirubin [Mass/Vol] 0.30 mg/dL 0.20-1.00 [facility] Comment on above: For patients on eltr ombopag therapy, use of Dimension [place] TBIL is not recommended. Blood urea nitrogen (BUN)/cr eatinine ratioOrdered By: Kaleigh Rosas on 05-15-2024 Urea nitrogen/Creatinine [Mass ratio] 31.2 mg/mg High 10-20 [facility] CBC W/Diff, Automatedon 04-29 Absolute Lymph 2.31 X10 3/uL Normal 0.83-4.51 [facility] Comment on above: Performed By: #### L 500.4050, L100.0100 #### [facility] [address] [place], [address] Absolute Neut 5.0 X10 3/uL Normal 2.0-7.7 [facility] Comment on above: Performed By: #### L 500.4050, L100.0100 #### [facility] [address] [place], [address] Basophils/100 WBC (Bld) 1.0 % Normal 0-1 [facility] Comment on above: Performed By: #### L 500.4050, L100.0100 #### [facility] [address] [place], [address] Eosinophils/100 WBC (Bld) 2.1 % Normal 0-5 [facility] Comment on above: Performed By: #### L 500.4050, L100.0100 #### [facility] [address] [place], [address] Erythrocyte distribution width (RBC) [Ratio] 15.5 % High 11.6-14.6 [facility] Comment on above: Performed By: #### L 500.4050, L100.0100 #### [facility] [address] [place], [address] Hematocrit (Bld) [Volume fraction] 41.2 % Normal 37-47 [facility] Comment on above: Performed By: #### L 500.4050, L100.0100 #### [facility] [address] [place], [address] Hemoglobin (Bld) [Mass/Vol] 13.0 g/dL Normal 12.0-15.0 [facility] Comment on above: Performed By: #### L 500.4050, L100.0100 #### [facility] [address] [place], [address] IG% 0.200 Normal 0.0-0.9 [facility] Comment on above: Result Comment: IG% - Immature Granulocytes (promyelocytes, myelocytes and metamyelocytes) > 1% indicates that a LEFT SHIFT is Present. Performed By: #### L 500.4050, L100.0100 #### [facility] [address] [place], [address] Lymphocytes/100 WBC (Bld) 28.4 % Normal 19-41 [facility] Comment on above: Performed By: #### L 500.4050, L100.0100 #### [facility] [address] [place], [address] MCH (RBC) [Entitic mass] 31.6 pg Normal 27.0-32.0 [facility] Comment on above: Performed By: #### L 500.4050, L100.0100 #### [facility] [address] [place], [address] MCHC (RBC) [Mass/Vol] 31.6 g/dL Low 32-36 [facility] Comment on above: Performed By: #### L 500.4050, L100.0100 #### [facility] [address] [place], [address] MCV (RBC) [Entitic vol] 100.2 fL High 81-99 [facility] Comment on above: Performed By: #### L 500.4050, L100.0100 #### [facility] [address] [place], [address] Monocytes/100 WBC (Bld) 7.0 % Normal 0-10 [facility] Comment on above: Performed By: #### L 500.4050, L100.0100 #### [facility] [address] [place], [address] Neutrophils/100 WBC (Bld) 61.3 % Normal 47-70 [facility] Comment on above: Performed By: #### L 500.4050, L100.0100 #### [facility] [address] [place], [address] Nucleated RBC (Bld) [#/Vol] 0 10*3/uL Normal 0-5 [facility] Comment on above: Performed By: #### L 500.4050, L100.0100 #### [facility] [address] [place], [address] Platelet mean volume (Bld) [Entitic vol] 10.5 fL Normal 6.2-12.0 [facility] Comment on above: Performed By: #### L 500.4050, L100.0100 #### [facility] [address] [place], [address] Platelets (Bld) [#/Vol] 264 10*3/uL Normal 150-450 [facility] Comment on above: Performed By: #### L 500.4050, L100.0100 #### [facility] [address] [place], [address] RBC (Bld) [#/Vol] 4.11 10*6/uL Low 4.2-5.4 [facility] Comment on above: Performed By: #### L 500.4050, L100.0100 #### [facility] [address] [place], [address] RDW SD 56.6 fl High 35.1-43.9 [facility] Comment on above: Performed By: #### L 500.4050, L100.0100 #### [facility] [address] [place], [address] WBC (Bld) [#/Vol] 8.1 10*3/uL Normal 4.4-11.0 [facility] Comment on above: Performed By: #### L 500.4050, L100.0100 #### [facility] [address] [place], [address] Carbon dioxide measurementOr dered By: Kaleigh Rosas on 05-15-2024 CO2 [Moles/Vol] 27.0 mmol/L 21.0-32.0 [facility] Chloride measurementOrdered By: Kaleigh Rosas on 05-15-2024 Chloride [Moles/Vol] 104 mmol/L 98-107 [facility] Comprehensive Metabolic Prof ilon 05-15-2024 Albumin [Mass/Vol] 3.8 g/dL Normal 3.2-5.0 [facility] Comment on above: Performed By: #### L 500.4050, L100.0100 #### [facility] [address] [place], [address] Albumin/Globulin [Mass ratio] 1.0 {ratio} Normal 0.9-2.4 [facility] Comment on above: Performed By: #### L 500.4050, L100.0100 #### [facility] [address] [place], [address] ALK P 63 U/L Normal 45-117 [facility] Comment on above: Performed By: #### L 500.4050, L100.0100 #### [facility] [address] [place], [address] ALT [Catalytic activity/Vol] 45 U/L Normal 13-56 [facility] Comment on above: Performed By: #### L 500.4050, L100.0100 #### [facility] [address] [place], [address] AST [Catalytic activity/Vol] 30 U/L Normal 15-37 [facility] Comment on above: Performed By: #### L 500.4050, L100.0100 #### [facility] [address] [place], [address] Bilirubin [Mass/Vol] 0.30 mg/dL Normal 0.20-1.00 [facility] Comment on above: Result Comment: For patients on eltrombopag therapy, use of Dimension [place] TBIL is not recommended. Performed By: #### L 500.4050, L100.0100 #### [facility] [address] [place], [address] BUN/CRE 31.2 RATIO High 10-20 [facility] Comment on above: Performed By: #### L 500.4050, L100.0100 #### [facility] [address] [place], [address] CA,Total 9.4 mg/dL Normal 8.5-10.1 [facility] Comment on above: Performed By: #### L 500.4050, L100.0100 #### [facility] [address] [place], [address] Chloride [Moles/Vol] 104 mmol/L Normal 98-107 [facility] Comment on above: Performed By: #### L 500.4050, L100.0100 #### [facility] [address] [place], [address] CO2 [Moles/Vol] 27.0 mmol/L Normal 21.0-32.0 [facility] Comment on above: Performed By: #### L 500.4050, L100.0100 #### [facility] [address] [place], [address] Creatinine [Mass/Vol] 0.64 mg/dL Normal 0.55-1.02 [facility] Comment on above: Result Comment: The validity of the calculated GFR GFRAA in patients over 70 years has not been determined. Clinical correlation is essential. Performed By: #### L 500.4050, L100.0100 #### [facility] [address] [place], [address] EST GFR - AA 119 mL/min Normal >60 [facility] Comment on above: Result Comment: Afri can [place] GFR Calc Performed By: #### L 500.4050, L100.0100 #### [facility] [address] [place], [address] GAP 6 Normal 5-15 [facility] Comment on above: Performed By: #### L 500.4050, L100.0100 #### [facility] [address] [place], [address] GFR/1.73 sq M.predicted among non-blacks MDRD (S/P/Bld) [Vol rate/Area] 99 mL/min/{1.73_m2} Normal >60 [facility] Comment on above: Result Comment: Non- GFR Calc Performed By: #### L 500.4050, L100.0100 #### [facility] [address] [place], [address] Globulin (S) [Mass/Vol] 3.9 g/dL Normal 2.2-4.2 [facility] Comment on above: Performed By: #### L 500.4050, L100.0100 #### [facility] [address] [place], [address] Glucose [Mass/Vol] 92 mg/dL Normal 74-106 [facility] Comment on above: Performed By: #### L 500.4050, L100.0100 #### [facility] [address] [place], [address] Potassium [Moles/Vol] 4.6 mmol/L Normal 3.5-5.1 [facility] Comment on above: Performed By: #### L 500.4050, L100.0100 #### [facility] [address] [place], [address] Sodium [Moles/Vol] 136 mmol/L Normal 136-145 [facility] Comment on above: Performed By: #### L 500.4050, L100.0100 #### [facility] [address] [place], [address] T PROT 7.7 g/dL Normal 6.4-8.2 [facility] Comment on above: Performed By: #### L 500.4050, L100.0100 #### [facility] [address] [place], [address] Urea nitrogen [Mass/Vol] 20 mg/dL High 7-18 [facility] Comment on above: Performed By: #### L 500.4050, L100.0100 #### [facility] [address] [place], [address] Eosinophil percentageOrdered By: Kaleigh Rosas on 05-15-2024 Eosinophils/100 WBC (Bld) 2.1 % 0-5 [facility] Erythrocyte distribution wid th ratioOrdered By: Kaleigh Rossa on 05-15-2024 Erythrocyte distribution width (RBC) [Ratio] 15.5 % High 11.6-14.6 [facility] Erythrocyte distribution wid th standard deviationOrdered By: Kaleigh Rosas on 05-15-2024 Erythrocyte distribution width (RBC) [Entitic vol] 56.6 fL High 35.1-43.9 [facility] Estimated glomerular filtrat ion rate (GFR) AmericanOrdered By: Kaleigh Rosas on 05-15-2024 Estimated GFR (MDRD) Amer 119 mL/min >60 [facility] Comment on above: GFR Calc Glomerular filtration rate ( GFR) estimationOrdered By: Kaleigh Rosas on 05-15-2024 Estimated GFR (MDRD) Non-Af Amer 99 mL/min >60 [facility] Comment on above: Non- GFR Calc Glucose measurementOrdered B y: Kaleigh Rosas on 05-15-2024 Glucose [Mass/Vol] 92 mg/dL 74-106 [facility] Hematocrit Auto (Bld) [Volum e fraction]Ordered By: Kaleigh Rosas on 05-15-2024 Hematocrit (Bld) [Volume fraction] 41.2 % 37-47 [facility] Hemoglobin A1con 05-15-2024 HbA1c (Bld) [Mass fraction] 5.6 % Normal 3.8-5.6 [facility] Comment on above: Result Comment: Norm al < 5.7 % Prediabetic 5.7 - 6.4 % Diabetic >or= 6.5 % Please note range changes. Performed By: #### L 500.4050, L100.0100 #### [facility] [address] [place] [address]. [place], [address] Hemoglobin A1c percentageOrd ered By: Kaleigh Rosas on 05-15-2024 HbA1c (Bld) [Mass fraction] 5.6 % 3.8-5.6 [facility] Comment on above: Normal < 5.7 % Predi abetic 5.7 - 6.4 % Diabetic >or= 6.5 % Please note range changes. Hemoglobin measurementOrdere d By: Kaleigh Rosas on 05-15-2024 Hemoglobin (Bld) [Mass/Vol] 13.0 g/dL 12.0-15.0 [facility] High density lipoprotein (HD L) measurementOrdered By: Kaleigh Rosas on 05-15-2024 Cholesterol in HDL [Mass/Vol] 65 mg/dL >40 [facility] Comment on above: The drugs N-Acetylcy steine and Metamizole may falsely depress this assay. Reference Range HDL <40 mg/dL Low HDL Cholesterol HDL >or= 60 mg/dL High HDL Cholesterol Immature granulocytes/100 WB C Auto (Bld)Ordered By: Kaleigh Rosas on 05-15-2024 Immature granulocytes/100 WBC (Bld) 0.200 % 0.0-0.9 [facility] Comment on above: IG% - Immature Granu locytes (promyelocytes, myelocytes and metamyelocytes) > 1% indicates that a LEFT SHIFT is Present. Laboratory - Chemistry and C hemistry - challengeOrdered By: Kaleigh Rosas on 05-15-2024 AST [Catalytic activity/Vol] 30 U/L 15-37 [facility] Lipid Profileon 05-15-2024 Cholesterol [Mass/Vol] 141 mg/dL Normal 200 [facility] Comment on above: Result Comment: <200 mg/dL Desirable 200-240 mg/dL Borderline >240 mg/dL High Risk Performed By: #### L 500.4050, L100.0100 #### [facility] [address] [place], [address] Cholesterol in HDL [Mass/Vol] 65 mg/dL Normal [facility] Comment on above: Result Comment: The drugs N-Acetylcysteine and Metamizole may falsely depress this assay. Reference Range HDL <40 mg/dL Low HDL Cholesterol HDL >or= 60 mg/dL High HDL Cholesterol Performed By: #### L 500.4050, L100.0100 #### [facility] [address] [place], [address] Cholesterol in LDL [Mass/Vol] 27 mg/dL Normal 0-130 [facility] Comment on above: Performed By: #### L 500.4050, L100.0100 #### [facility] [address] [place], [address] Cholesterol in VLDL [Mass/Vol] 49 mg/dL High 5-40 [facility] Comment on above: Performed By: #### L 500.4050, L100.0100 #### [facility] [address] [place], [address] Triglyceride [Mass/Vol] 245 mg/dL High [facility] Comment on above: Result Comment: The drugs N-Acetylcysteine and Metamizole may falsely depress this assay. Serum Triglycerides Reference Interval Normal <150 mg/dL Borderline high 150 - 199 mg/dL High 200 - 499 mg/dL Very High > or = 500 mg/dL Performed By: #### L 500.4050, L100.0100 #### [facility] [address] [place], [address] Low density lipoprotein (LDL ) cholesterol measurementOrdered By: Kaleigh Rosas on 05-15-2024 Cholesterol in LDL [Mass/Vol] 27 mg/dL 0-130 [facility] Lymphocytes Auto (Unsp spec) [#/Vol]Ordered By: Kaleigh Rosas on 05-15-2024 Lymphocytes (Bld) [#/Vol] 2.31 10*3/uL 0.83-4.51 [facility] Lymphocytes/100 WBC Auto (Un sp spec)Ordered By: Kaleigh Rosas on 05-15-2024 Lymphocytes/100 WBC (Bld) 28.4 % 19-41 [facility] MCV (mean corpuscular volume ) determinationOrdered By: Kaleigh Rosas on 05-15-2024 MCV (RBC) [Entitic vol] 100.2 fL High 81-99 [facility] Mean corpuscular hemoglobin (MCH) determinationOrdered By: Kaleigh Rosas on 05-15-2024 MCH (RBC) [Entitic mass] 31.6 pg 27.0-32.0 [facility] Mean corpuscular hemoglobin concentration (MCHC) determinationOrdered By: Kaleigh Rosas on 05-15-2024 MCHC (RBC) [Mass/Vol] 31.6 g/dL Low 32-36 [facility] Mean platelet volume determi nationOrdered By: Kaleigh Rosas on 05-15-2024 Platelet mean volume (Bld) [Entitic vol] 10.5 fL 6.2-12.0 [facility] Monocyte percentageOrdered B y: Kaleigh Rosas on 05-15-2024 Monocytes/100 WBC (Bld) 7.0 % 0-10 [facility] Neutrophil percentageOrdered By: Kaleigh Rosas on 05-15-2024 Neutrophils/100 WBC (Bld) 61.3 % 47-70 [facility] Nucleated red blood cell per centageOrdered By: Kaleigh Rosas on 05-15-2024 Nucleated RBC/100 WBC (Bld) [Ratio] 0 % 0-5 [facility] Platelet countOrdered By: Eldon Rosas on 05-15-2024 Platelets (Bld) [#/Vol] 264 10*3/uL 150-450 [facility] Potassium measurementOrdered By: Kaleigh Rosas on 05-15-2024 Potassium [Moles/Vol] 4.6 mmol/L 3.5-5.1 [facility] RBC Auto (Bld) [#/Vol]Ordere d By: Kaleigh Rosas on 05-15-2024 RBC (Bld) [#/Vol] 4.11 10*6/uL Low 4.2-5.4 [facility] Serum anion gap measurementO rdered By: Kaleigh Rosas on 05-15-2024 Anion gap [Moles/Vol] 6 mmol/L 5-15 [facility] Serum globulin measurementOr dered By: Kaleigh Rosas on 05-15-2024 Globulin (S) [Mass/Vol] 3.9 g/dL 2.2-4.2 [facility] Serum or plasma alanine quintero otransferase (ALT) measurementOrdered By: Kaleigh Rosas on 05-15-2024 ALT [Catalytic activity/Vol] 45 U/L 13-56 [facility] Serum or plasma albumin riaz urement (mass/volume)Ordered By: Kaleigh Rosas on 05-15-2024 Albumin [Mass/Vol] 3.8 g/dL 3.2-5.0 [facility] Serum or plasma alkaline chantel sphatase measurementOrdered By: Kaleigh Rosas on 05-15-2024 ALP [Catalytic activity/Vol] 63 U/L 45-117 [facility] Serum or plasma calcium riaz urement (mass/volume)Ordered By: Kaleigh Rosas on 05-15-2024 Calcium [Mass/Vol] 9.4 mg/dL 8.5-10.1 [facility] Serum or plasma cholesterol measurement (mass/volume)Ordered By: Kaleigh Rosas on 05-15-2024 Cholesterol [Mass/Vol] 141 mg/dL <200 [facility] Comment on above: <200 mg/dL Desirable 200-240 mg/dL Borderline >240 mg/dL High Risk Serum or plasma creatinine m easurement (mass/volume)Ordered By: Kaleigh Rosas on 05-15-2024 Creatinine [Mass/Vol] 0.64 mg/dL 0.55-1.02 [facility] Comment on above: The validity of the calculated GFR & GFRAA in patients over 70 years has not been determined. Clinical correlation is essential. Serum or plasma urea nitroge n measurement (mass/volume)Ordered By: Kaleigh Rosas on 05-15-2024 Urea nitrogen [Mass/Vol] 20 mg/dL High 7-18 [facility] Sodium levelOrdered By: Dulce Rosas on 05-15-2024 Sodium [Moles/Vol] 136 mmol/L 136-145 [facility] Total proteinOrdered By: Tariq Rosas on 05-15-2024 Protein [Mass/Vol] 7.7 g/dL 6.4-8.2 [facility] Triglycerides measurementOrd ered By: Kaleigh Rosas on 05-15-2024 Triglyceride [Mass/Vol] 245 mg/dL High <199 [facility] Comment on above: The drugs N-Acetylcy steine and Metamizole may falsely depress this assay.Serum Triglycerides Reference Interval Normal <150 mg/dL Borderline high 150 - 199 mg/dL High 200 - 499 mg/dL Very High > or = 500 mg/dL Very low density lipoprotein (VLDL) cholesterol measurementOrdered By: Kaleigh Rosas on 05-15-2024 VLDL Cholesterol 49 mg/dL High 5-40 [facility] Vitamin D,25 Hydroxyon 05-15 Vitamin D 25-OH 10.8 ng/mL Normal [facility] Comment on above: Result Comment: Justina min D 25(OH) Status Range Deficiency <20 ng/mL (50nmol/L) Insufficiency 20 - 30 ng/mL (50 - 75 nmol/L) Sufficiency 30 - 100 ng/mL (75 - 250 nmol/L) Toxicity >100 ng/mL (>250 nmol/L) Performed By: #### L 500.4050, L100.0100 #### [facility] [address], [address] White blood cell (WBC) count Ordered By: Kaleigh Rosas on 05-15-2024 WBC (Bld) [#/Vol] 8.1 10*3/uL 4.4-11.0 [facility] Internal Medicine Office Vis iton 04-13-2024 Internal Medicine Office Visit [facility] [address] [place] [address] [place] [address] OFFICE VISIT Date of Service: 05/15/24 MR#: [id number] Acct: [id number] Name: AVIS PAYNE Rep #: [id number] : 1960 Provider: Dr. Kaleigh arnold MD Age/Sex: 63/F Location: [facility] Status: Signed Intake Vital Signs 01/17/24 08:48 05/15/24 10:39 Height 5 ft 4 in 5 ft 2 in Weight: 102 lb BMI 18.6 BP 144/78 H Blood Pressure Location Lt brachial Position Sitting Respiration 16 Pulse 60 Pulse Source Monitor Temp 97.5 F L Temp Source Temporal Pulse Oximetry (%) 97 Oxygen Delivery Method room air Intake Visit Reasons: OSTEOPOROSIS CHECK Relocation Manager Required: No Accompanied by: Self Is patient in pain?: No Allergies No Known Allergies Allergy (Verified 05/15/24 10:34) Medications ???Medication ???Instructions ???Recorded ???Confirmed ???Type B-complex with vitamin C 1 cap PO DAILY 06/16/23 05/15/24 H istory aspirin 81 mg tablet,delayed 81 mg PO DAILY #30 tabs 07/29/23 0 05/15/24 Rx release (Adult Aspirin Regimen) ibuprofen 200 mg tablet 400 mg PO Q6H PRN pain 07/29/23 History rosuvastatin 20 mg tablet 20 mg PO DAILY #30 tabs 10/20/23 0 05/15/24 Rx denosumab 60 mg/mL subcutaneous 60 mg subcut [id number] #1 mL 05/15/24 Rx syringe (Prolia) lisinopril 20 mg tablet 20 mg PO DAILY #90 tabs 05/15/24 0 05/15/24 Rx potassium Cl-calcium phos-mag 40 2 tab PO QAC 05/15/24 05/15/24 His tory mg-18 mg-9 mg tablet PFSH Medical History Smoker CKD (chronic kidney disease), stage II Heavy alcohol use Tobacco use PAD (peripheral artery disease) Hypertension Atherosclerosis of right lower extremity with intermittent claudication Left carotid bruit Gout Surgical History No pertinent past surgical history Family History Grandmother Diabetes Mother Kidney disease Heart disease Father Heart disease Social History household members: spouse housing: house current occupational status: employed current occupation: [employer] Smoking Status: Current every day smoker tobacco type: cigarettes Electronic Cigarette Use: not used alcohol intake: current alcohol intake frequency: 0-2 drinks per day Alcohol type: hard liquor details: a couple martinis a night substance use type: marijuana what type of physical activity do you participate in: walking and weight training frequency: 3-4 times per week seatbelt use: always do you feel safe at home: Yes HPI HPI Details: AVIS PAYNE, is a 63 F who presents to the office today for a follow up. She is due for some routine blood work. She is willing to get her cervical cancer screening done and would like her flu shot today. She does still smoke and is still trying to cut back. She states she has some patches at home which help. She states she isn't smoking on a daily basis any longer. She does need refills. She reports she is eating healthy and staying active. The patient does check her blood pressure at home and reports it has been variable. She reports it is mostly in the 140s/80s. She had one reading 171/105 last week. She was not having any symptoms when her reading was high. She didn't take or do anything for it. She is taking her medication as prescribed without problems. She reports she could do better in terms of monitoring salt intake. She states she doesn't do much caffeine. The patient denies any ongoing problems with the colitis. She states that has been feeling better. She will occasionally need to do miralax to help move her bowels, which does seem to help. At her last office visit, she complained of foot and calf pain. Work up demonstrated some peripheral vascular disease and she was referred to vascular surgery. She was started on pletal, but didn't tolerate it. She was also started on aspirin and crestor, which she has been taking as prescribed. She reports that she is going to schedule an appointment with them to discuss possible surgery for her right leg. She still needs to do her carotid US as previously ordered. The patient's GI provider ordered a bone density scan which showed osteoporosis and was instructed to follow up with her PCP. Medications were previously recommended, but she wanted to come in to discuss her findings. She reports that she is willing to try medication and is interested in trying prolia. ROS Const Constitutional: No body ache, chills, excessive sweating, fatigue, fever(s), frequent falls, headache(s), snoring, weakness, weight change or change in appetite Eyes Eyes: No blurry vision, change in vision, e (more content not included)... Normal [facility] Dexa Bone Density Studyon Dexa Bone Density Study [facility] Imaging Services [address] [place] [id number] Dexa Bone Density Study MR#: [id number] Acct: [id number] Name: AVIS PAYNE SUSY Rep #: [id number] : 1960 F 63 From: Navjot thompson MD PCP: Dr. Kaleigh Rosas MD Status: [facility] Study: Dexa Bone Density Study Date of Exam: 03/03/24 Exam# [id number] Ordering Dr: Baldo Tello DO [id number] STUDY: DUAL ENERGY X-RAY ABSORPTIOMETRY / DXA REASON FOR EXAM: Female, 63 years old. Severe osteoporosis TECHNIQUE: Bone Mineral Density (BMD) measurements of lumbar spine and bilateral hips were obtained. COMPARISON: None. FINDINGS: Lumbar Spine (L1-L4): g/cm2 (1.026) / T-score (0.1) / Z-score (1.8) Findings are suggestive of normal bone density with a low fracture risk. Left Femur Total: g/cm2 (0.655) / T-score (-2.4) / Z-score (-1.2) Left Femoral Neck: g/cm2 (0.523) / T-score (-2.9) / Z-score (-1.5) Right Femur Total: g/cm2 (0.676) / T-score (-2.2) / Z-score (-1.0) Right Femoral Neck: g/cm2 (0.554) / T-score (-2.7) / Z-score (-1.2) BD/Dexa Bone Density Study IMPRESSION: The patient is considered osteoporotic as outlined below according to World Ayad Organization (WHO) criteria with a high fracture risk. Reference Information: The T-score is the number of standard deviations above or below the standard which is normal for young adults at their peak bone mineral density. The World Health Organization (WHO) interprets the T-scores as follows: Above -1 Normal bone density Between -1 and -2.5 Osteopenia Equal to / or below -2.5 Osteoporosis As a practical clinical guideline, osteopenia may be graded as follows: Mild -1 through -1.5 Moderate -1.6 through -2.0 Severe -2.1 through -2.4 The Z-score is the number of standard deviations above or below age-matched controls. A Z-score of less than -1.5 would be considered abnormal. References: 1. NIH Osteoporosis and Related Bone Diseases www osteo.org 2. International Society for Clinical Densitometry www iscd.org 3. National Osteoporosis Foundation www nof.org Electronically Signed: Navjot Duarte MD at 12:02 EST , CC: Dr. Kaleigh Rosas MD; Baldo Tello DO Body Worker: Signed Normal [facility] Gastroenterology Visit Repor ton 01-17-2024 Gastroenterology Visit Report [facility] [address] [place] [address] OFFICE VISIT Date of Service: 01/17/24 MR#: [id number] Acct: [id number] Name: AVIS PAYNE Rep #: [id number] : 1960 Provider: Baldo Tello DO Age/Sex: 63/F Location: [facility] Status: Signed Intake Vital Signs 12/20/23 13:52 12/31/23 11:42 01/17/24 08:48 Height 5 ft 5 in 5 ft 5 in 5 ft 4 in Weight: 103 lb 13.404 oz 100 lb 6 oz 95 lb 6 oz BMI 16.7 16.3 BP 140/70 H Blood Pressure Location Lt brachial Position Sitting Respiration 16 Pulse 75 Pulse Source Monitor Temp 99.0 F Temp Source Temporal Pulse Oximetry (%) 98 Oxygen Delivery Method room air Intake Visit Reasons: Hospital FU Allergies No Known Allergies Allergy (Verified 12/31/23 11:37) Medications ???Medication ???Instructions ???Recorded ???Confirmed ???Type B-complex with vitamin C 1 cap PO DAILY 06/16/23 01/17/24 History calcium carbonate (Calcium 600) 600 mg PO DAILY 06/16/23 01/17/24 History potassium chloride 20 mEq oral 20 meq PO DAILY 06/16/23 01/17/24 History packet aspirin 81 mg tablet,delayed 81 mg PO DAILY #30 tabs 07/29/23 01/17/24 Rx release (Adult Aspirin Regimen) ibuprofen 200 mg tablet 400 mg PO Q6H PRN pain 07/29/23 01/17/24 History lisinopril 10 mg tablet 10 mg PO DAILY #90 tabs 09/23/23 01/17/24 Rx rosuvastatin 20 mg tablet 20 mg PO DAILY #30 tabs 10/20/23 01/17/24 Rx mirtazapine 30 mg tablet 30 mg PO QHS #30 tabs 01/17/24 01/17/24 Rx prednisone 20 mg tablet 20 mg PO QDAY #30 tabs 01/17/24 01/17/24 Rx PFSH Medical History Smoker CKD (chronic kidney disease), stage II Heavy alcohol use Tobacco use PAD (peripheral artery disease) Hypertension Atherosclerosis of right lower extremity with intermittent claudication Left carotid bruit Gout Surgical History No pertinent past surgical history Family History Grandmother Diabetes Mother Kidney disease Heart disease Father Heart disease Social History (Updated 01/17/24 @ 08:44 by Cinthia Alexander) household members: spouse housing: house current occupational status: employed current occupation: [employer] Smoking Status: Current every day smoker tobacco type: cigarettes Years smoked: 25 Electronic Cigarette Use: not used alcohol intake: current alcohol intake frequency: 0-2 drinks per day Alcohol type: hard liquor details: a couple martinis a night substance use type: marijuana what type of physical activity do you participate in: walking and weight training frequency: 3-4 times per week seatbelt use: always do you feel safe at home: Yes HPI HPI Details: AVIS PAYNE, is a 63 F who presents to the office today for hospital follow up. [facility] hospitalization 12.16.23 - 12.20.23 abd pain abd/pelvis CT 12.16.23 Findings which are most consistent with the ileal colitis possibly Crohn's disease with associated mild mesenteric edema and ascites The appendix appears mildly dilated and coexisting early changes of acute appendicitis cannot be entirely excluded Clinical correlation is recommended Colonoscopy 12.19.23 Diverticulosis in the recto-sigmoid colon and in the sigmoid colon. Localized moderate inflammation was found in the rectum, in the recto-sigmoid colon and in the sigmoid colon secondary to colitis. Biopsied. Anal fissure. The examined portion of the ileum was normal. Biopsied. Anal stricture found on digital rectal exam. OV 01.17.24 pt reports continued lower abdominal pain since hospital visit. Pt reports daily bm, take miralax nightly. Reports decreased appetite, due to increased abd pain with eating. ROS Const Constitutional: Positive for fatigue and weight change (weight loss); No fever(s) ENT ENT: No difficulty swallowing Gastro GI: Positive for abdominal pain, bloating, change in bowel habits and excessive flatus; No belching, change in stool character, coffee ground emesis, constipation, cramping, diarrhea, heartburn, difficulty swallowing, feeling full early, incontinent of stools, Vomiting blood/hematemesis, Blood in stool, loose stools, Black,tarry stools, nausea/dyspepsia, pain with swallowing, vomiting or other Musc Musculoskeletal: Positive for abnormal gait, back pain, numbness and tingling; No joint pain Skin Skin: No yellowing of the eye or itchy eyes Neuro Neurology: Positive for abnormal gait, numbness and tingling Psych Psychiatric: No anxiety and No depression Endo Endocrine: Positive for fatigue and weight change (weight loss) Aller/Imm Allergy/Immunologic: No itchy eyes Maynor/Lymp Hematologic/Lymphati c: Positive for easy bruising; No ea (more content not included)... Normal [facility] Internal Medicine Office Vis [place] 12-31-2023 Internal Medicine Office Visit [facility] [address] [place] [address] [place] [address] OFFICE VISIT Date of Service: 12/31/23 MR#: [id number] Acct: [id number] Name: AVIS PAYNE SUSY Rep #: [id number] : 1960 Provider: HUANG Aivna Age/Sex: 63/F Location: [facility] Status: Signed Intake Vital Signs 12/20/23 13:52 12/31/23 11:42 Height 5 ft 5 in 5 ft 5 in Weight: 100 lb 6 oz BMI 16.7 BP 140/70 H Blood Pressure Location Lt brachial Position Sitting Respiration 16 Pulse 75 Pulse Source Monitor Temp 99.0 F Temp Source Temporal Pulse Oximetry (%) 98 Oxygen Delivery Method room air Intake Visit Reasons: [facility] er f/u Chief Complaint: [facility] er f/u Relocation Manager Required: No Accompanied by: Self Is patient in pain?: No Allergies No Known Allergies Allergy (Verified 12/31/23 11:37) Medications ???Medication ???Instructions ???Recorded ???Confirmed ???Type B-complex with vitamin C 1 cap PO DAILY 06/16/23 12/31/23 History calcium carbonate (Calcium 600) 600 mg PO DAILY 06/16/23 12/31/23 History potassium chloride 20 mEq oral 20 meq PO DAILY 06/16/23 12/31/23 History packet aspirin 81 mg tablet,delayed 81 mg PO DAILY #30 tabs 07/29/23 12/31/23 Rx release (Adult Aspirin Regimen) ibuprofen 200 mg tablet 400 mg PO Q6H PRN pain 07/29/23 12/31/23 History lisinopril 10 mg tablet 10 mg PO DAILY #90 tabs 09/23/23 12/31/23 Rx rosuvastatin 20 mg tablet 20 mg PO DAILY #30 tabs 10/20/23 12/31/23 Rx PFSH Medical History Smoker CKD (chronic kidney disease), stage II Heavy alcohol use Tobacco use PAD (peripheral artery disease) Hypertension Atherosclerosis of right lower extremity with intermittent claudication Left carotid bruit Gout Surgical History No pertinent past surgical history Family History Grandmother Diabetes Mother Kidney disease Heart disease Father Heart disease Social History household members: spouse housing: house current occupational status: employed current occupation: [employer] Smoking Status: Current every day smoker tobacco type: cigarettes Tobacco: How many years used: 44 Electronic Cigarette Use: not used alcohol intake: current alcohol intake frequency: 0-2 drinks per day Alcohol type: hard liquor details: Drinks 2 vodka drinks daily, potentially more. substance use type: does not use what type of physical activity do you participate in: walking and weight training frequency: 3-4 times per week seatbelt use: always do you feel safe at home: Yes HPI HPI Chief Complaint: [facility] er f/u Details: AVIS PAYNE, is a 63 F who presents to the office today for ER f/u. Patient went to the ER due to severe abdominal pains. She was admitted to the hospital on 12-17-23 and spent 3 days in the hospital being discharged on 12-19-24. She had CT scans that were concerning for colitis or possible appendicitis and she did end up having a GI consult and resulting colonoscopy which did confirm colitis as well as anal stenosis. She was given antibiotics upon discharge which she did complete (finished 3 days ago). Patient states that since completing the antibiotics that she has felt a ton better than she did (She previously couldn't even stand up due to pain). She states that she is eating well and has been trying to eat a bland diet. She is drinking plenty of water at this time. She has not had any vomiting or diarrhea. She states that she still has a little bloating feeling and some very minor discomfort but again no significant pains or other issues. She has a f/u with GI on 01-17-24. Patient drinks hot tea in the morning. She used to take caffeine pills prior to going into the hospital but stopped this since getting out She is a smoker 1/2 ppd having smoked for probably 30 years. She states that she has been trying to cut down. ROS Const Constitutional: No body ache, chills, excessive sweating, fatigue, fever(s), frequent falls, headache(s), snoring, weakness or change in appetite Eyes Eyes: No blurry vision, change in vision, eye pain or Light sensitivity ENT ENT: No abnormal hearing, ear or mastoid pain, tinnitus, nasal congestion, headache(s), neck pain or sore throat Resp Respiratory: No cough, shortness of breath, snoring or wheezing Cardio Cardiology: No chest pain at rest, chest pain with exertion, excessive sweating, dyspnea on exertion, lightheadedness, orthopnea or palpitations Gastro GI: No abdominal pain, change in bowel habits, constipation, cramping, diarrhea, nausea/dyspepsia or vomiting Genitourinary-Female : No burning urination, painful urination, urinary inco (more content not included)... Normal [facility] Basic Metabolic Profile (BMP )on 12-20-2023 BUN/CRE 26.2 RATIO High 01-15 [facility] Comment on above: Performed By: #### L 500.2500 #### [facility] [address] [place], [address] CA,Total 9.4 mg/dL Normal 8.5-10.1 [facility] Comment on above: Performed By: #### L 500.2500 #### [facility] [address] [place], [address] Chloride [Moles/Vol] 105 mmol/L Normal 98-107 [facility] Comment on above: Performed By: #### L 500.2500 #### [facility] [address] [place], [address] CO2 [Moles/Vol] 26.0 mmol/L Normal 21.0-32.0 [facility] Comment on above: Performed By: #### L 500.2500 #### [facility] [address] [place], [address] Creatinine [Mass/Vol] 0.73 mg/dL Normal 0.55-1.02 [facility] Comment on above: Result Comment: The validity of the calculated GFR GFRAA in patients over 70 years has not been determined. Clinical correlation is essential. Performed By: #### L 500.2500 #### [facility] [address] [place], [address] ECRCL 57.89 ml/min Normal [facility] Comment on above: Performed By: #### L 500.2500 #### [facility] [address] [place], [address] EST GFR - AA 104 mL/min Normal >60 [facility] Comment on above: Result Comment: Afri can Eritrean GFR Calc Performed By: #### L 500.2500 #### [facility] [address] [place], [address] GAP 7 Normal 5-15 [facility] Comment on above: Performed By: #### L 500.2500 #### [facility] [address] [place], [address] GFR/1.73 sq M.predicted among non-blacks MDRD (S/P/Bld) [Vol rate/Area] 86 mL/min/{1.73_m2} Normal >60 [facility] Comment on above: Result Comment: Non- GFR Calc Performed By: #### L 500.2500 #### [facility] [address] [place], [address] Glucose [Mass/Vol] 152 mg/dL High 74-106 [facility] Comment on above: Result Comment: Fast ing Glucose result greater than or equal to 126 mg/dL suggests DIABETES MELLITUS per A.D.A. criteria. Performed By: #### L 500.2500 #### [facility] [address] [place], [address] Potassium [Moles/Vol] 3.2 mmol/L Low 3.5-5.1 [facility] Comment on above: Performed By: #### L 500.2500 #### [facility] [address] [place], [address] Sodium [Moles/Vol] 138 mmol/L Normal 136-145 [facility] Comment on above: Performed By: #### L 500.2500 #### [facility] [address] [place], [address] Urea nitrogen [Mass/Vol] 19 mg/dL High 7-18 [facility] Comment on above: Performed By: #### L 500.2500 #### [facility] [address] [place], [address] Discharge Instructionon 11-28 Discharge Instruction [facility] Medical Records Department [address] [place] [address] Instructions for Home/Discharge Instructions 12/20/23 1337 MR#: [id number] Acct: [id number] Name: AVIS PAYNE Rep #: [id number] : 1960 63 From: Igor Hdez MD PCP: Dr. Kaleigh Rosas MD Status:ADM IN Discharge Instructions Diet Discharge Diet: Low fat / Low cholesterol Activity Discharge Activity: Return to Normal Activity Dressing / Incision Call your doctor if you observe: Fever of 101 or Higher, Shortness of breath, Dizziness, Fainting spells, Swelling in the ankles, Chest pain and Increased palpitations (irregular heartbeat) Follow Up Care Test Results: Test results from this visit will be discussed in further detail at your follow-up appointment, if applicable. Discharge Plan Admission Admit Date/Time: 12/17/23 00:14 Attending Provider: Igor Hdez Primary Care Provider: Kaleigh Rosas Consulting Providers: Kesha Venegas; Samreen Dunham; Viet Brizuela; Igro Hdez; Toño Sanchez Discharge Orders/Prescriptions Prescriptions: New amoxicillin-pot clavulanate 875-125 mg tablet 1 tab PO Q12H Qty: 14 0RF Continued B-complex with vitamin C Capsule 1 cap PO DAILY potassium chloride 20 mEq packet 20 meq PO DAILY calcium carbonate [Calcium 600] 600 mg calcium (1,500 mg) tablet 600 mg PO DAILY ibuprofen 200 mg tablet 400 mg PO Q6H PRN (Reason: pain) aspirin [Adult Aspirin Regimen] 81 mg tablet,delayed release (DR/EC) 81 mg PO DAILY Qty: 30 11RF rosuvastatin 20 mg tablet 20 mg PO DAILY Qty: 30 11RF lisinopril 10 mg tablet 10 mg PO DAILY Qty: 90 1RF Referrals / Follow Up: Kaleigh Rosas MD [Primary Care Provider] - Within 1 Week Baldo Tello DO [Med Staff - Active Staff] - Within 1 Month Disposition Disposition (needs filled in before D/C Order can be placed): Home, Self Care 12/20/23 1407 Igor Hdez MD CC: Dr. Kaleigh Rosas MD; Dr. Samreen Dunham MD; Dr. Toño Sanchez DO; Dr. Igor Hdez MD; Dr. Viet Brizuela MD; Dr. Kesha Venegas MD Signed [facility] MR/PN.victor manuel 12-20-2023 MR/PN.GI [facility] Medical Records Department [address] [place] [address] Progress Note - GI 12/20/231917 MR#: [id number] Acct: [id number] Name: AVIS PAYNE Rep #: [id number] : 1960 63 From: [facility] Friend DO PCP: Dr. Kaleigh Rosas MD Status:DIS IN Location: [facility] [place] AH458-3 Subjective Subjective Patient is doing well and is having bowel movements. She is status post colonoscopy with diagnosis of anal stenosis and likely acute on chronic ischemic colitis status post biopsies. Objective Data Objective Data Vital Signs: Vital Signs Temp Pulse Resp BP Pulse Ox O2 Del Method 98.4 F 78 18 183/100 H 98 Room Air 12/20/23 14:56 12/20/23 14:56 12/20/23 14:56 12/20/23 14:56 12/20/23 14:56 12/20/23 14:56 Oxygen Delivery Method Room Air Weight: 103 lb 13.404 oz Body Mass Index (BMI) 17.3 Intake Output: Intake and Output for Last 24 Hours 12/18/23 12/19/23 12/20/23 23:59 23:59 23:59 Intake Total 4620 / 5420 1380.0 / 1380.0 520 / 520 Output Total 500 / 500 Balance 4120 / 4920 1380.0 / 1380.0 520 / 520 Lab / Micro Data 12/19/23 05:40 12/20/23 07:14 Labs: Laboratory Results - last 24 hr 12/20/23 07:14: Sodium 138, Potassium 3.2 L, Chloride 105, Carbon Dioxide 26.0, Anion Gap 7, BUN 19 H, Creatinine 0.73, Estim Creat Clear Calc 57.89, Est GFR (MDRD) Af Amer 104, Est GFR (MDRD) Non-Af 86, BUN/Creatinine Ratio 26.2 H, Glucose 152 H, Calcium 9.4 Micro: Microbiology 12/17/23 01:03 Mucosa - Nose Respiratory Panel (PCR) - Final 12/17/23 01:03 Mucosa - Nose Coronavirus COVID-19 PCR - Final Physical Exam Narrative General: Alert, Oriented x3, Cooperative, No apparent distress HEENT: Atraumatic, PERRLA, EOMI, Normocephalic Oral: Moist Mucosa Neck: Supple, No JVD Lungs: Diminished, Normal air movement, No rhonchi, No wheeze, No rales Cardiovascular: Regular rate, Regular Rhythm, Normal S1, Normal S2, No murmurs Abdomen: Soft, TTP RLQ, Non-Distended, No Hepato-splenomegaly Extremities: No edema, Capillary Refill Less than 3 Seconds Skin: No rashes, No breakdown Musculoskeletal: No Tenderness to Palpation of Joints or Extremities Neurological: No focal neurological deficits, Motor Exam 5/5 strength throughout, Sensory exam intact to light touch and pain Psych/Mental Status: Normal affect, appropriate Assessment Plan Assessment/Plan (1) Ileocolitis: PLAN: Plan N/V/D with associated abdominal discomfort with CT scan concerning for ileocolitis with diffuse mesenteric edema and small amount of ascites with mild dilatation of the appendix and concern for possibility of acute appendicitis with initial lactic acidosis, improved in the ED with IV fluids, possibility of underlying IBD: She underwent colonoscopy discovered to have diffuse colitis with anal stenosis. Leading differential diagnosis ischemic colitis. I would continue antibiotics for the next 7 days and stop. Follow-up in the clinic for IBD workup to be completed. DVT: Lovenox Charges/Coding Visit Charges Inpatient E M: 17074 Subs Hosp 12/20/231918 Cosigner Signature (if applicable): CC: Signed Normal [facility] Basic Metabolic Profile (BMP )on 12-19-2023 BUN/CRE 21.1 RATIO High 10-20 [facility] Comment on above: Performed By: #### L 500.4050, L100.0100 #### [facility] [address] [place], [address] CA,Total 9.0 mg/dL Normal 8.5-10.1 [facility] Comment on above: Performed By: #### L 500.4050, L100.0100 #### [facility] [address] [place], [address] Chloride [Moles/Vol] 106 mmol/L Normal 98-107 [facility] Comment on above: Performed By: #### L 500.4050, L100.0100 #### [facility] [address] [place], [address] CO2 [Moles/Vol] 25.0 mmol/L Normal 21.0-32.0 [facility] Comment on above: Performed By: #### L 500.4050, L100.0100 #### [facility] [address] [place], [address] Creatinine [Mass/Vol] 0.62 mg/dL Normal 0.55-1.02 [facility] Comment on above: Result Comment: The validity of the calculated GFR GFRAA in patients over 70 years has not been determined. Clinical correlation is essential. Performed By: #### L 500.4050, L100.0100 #### [facility] [address] [place], [address] ECRCL 66.86 ml/min Normal [facility] Comment on above: Performed By: #### L 500.4050, L100.0100 #### [facility] [address] [place], [address] EST GFR - AA 125 mL/min Normal >60 [facility] Comment on above: Result Comment: Afri can Eritrean GFR Calc Performed By: #### L 500.4050, L100.0100 #### [facility] [address] [place], [address] GAP 5 Normal 5-15 [facility] Comment on above: Performed By: #### L 500.4050, L100.0100 #### [facility] [address] [place], [address] GFR/1.73 sq M.predicted among non-blacks MDRD (S/P/Bld) [Vol rate/Area] 104 mL/min/{1.73_m2} Normal >60 [facility] Comment on above: Result Comment: Non- GFR Calc Performed By: #### L 500.4050, L100.0100 #### [facility] [address] [place], [address] Glucose [Mass/Vol] 156 mg/dL High 74-106 [facility] Comment on above: Result Comment: Fast ing Glucose result greater than or equal to 126 mg/dL suggests DIABETES MELLITUS per A.D.A. criteria. Performed By: #### L 500.4050, L100.0100 #### [facility] [address] [place], [address] Potassium [Moles/Vol] 3.6 mmol/L Normal 3.5-5.1 [facility] Comment on above: Performed By: #### L 500.4050, L100.0100 #### [facility] [address] [place], [address] Sodium [Moles/Vol] 136 mmol/L Normal 136-145 [facility] Comment on above: Performed By: #### L 500.4050, L100.0100 #### [facility] [address] [place], [address] Urea nitrogen [Mass/Vol] 13 mg/dL Normal 7-18 [facility] Comment on above: Performed By: #### L 500.4050, L100.0100 #### [facility] [address] [place], [address] CBC W/Diff, Automatedon 11-28 Absolute Lymph 0.49 X10 3/uL Low 0.83-4.51 [facility] Comment on above: Performed By: #### L 500.4050, L100.0100 #### [facility] [address] [place], [address] Absolute Neut 17.3 X10 3/uL High 2.0-7.7 [facility] Comment on above: Performed By: #### L 500.4050, L100.0100 #### [facility] [address] [place], [address] Basophils/100 WBC (Bld) 0.2 % Normal 0-1 [facility] Comment on above: Performed By: #### L 500.4050, L100.0100 #### [facility] [address] [place], [address] Eosinophils/100 WBC (Bld) 0.0 % Normal 0-5 [facility] Comment on above: Performed By: #### L 500.4050, L100.0100 #### [facility] [address] [place], [address] Erythrocyte distribution width (RBC) [Ratio] 13.3 % Normal 11.6-14.6 [facility] Comment on above: Performed By: #### L 500.4050, L100.0100 #### [facility] [address] [place], [address] Hematocrit (Bld) [Volume fraction] 31.9 % Low 37-47 [facility] Comment on above: Performed By: #### L 500.4050, L100.0100 #### [facility] [address] [place], [address] Hemoglobin (Bld) [Mass/Vol] 10.4 g/dL Low 12.0-15.0 [facility] Comment on above: Performed By: #### L 500.4050, L100.0100 #### [facility] [address] [place], [address] IG% 1.000 High 0.0-0.9 [facility] Comment on above: Result Comment: IG% - Immature Granulocytes (promyelocytes, myelocytes and metamyelocytes) > 1% indicates that a LEFT SHIFT is Present. Performed By: #### L 500.4050, L100.0100 #### [facility] [address] [place], [address] Lymphocytes/100 WBC (Bld) 2.6 % Low 19-41 [facility] Comment on above: Performed By: #### L 500.4050, L100.0100 #### [facility] [address] [place], [address] MCH (RBC) [Entitic mass] 33.2 pg High 27.0-32.0 [facility] Comment on above: Performed By: #### L 500.4050, L100.0100 #### [facility] [address] [place], [address] MCHC (RBC) [Mass/Vol] 32.6 g/dL Normal 32-36 [facility] Comment on above: Performed By: #### L 500.4050, L100.0100 #### [facility] [address] [place], [address] MCV (RBC) [Entitic vol] 101.9 fL High 81-99 [facility] Comment on above: Performed By: #### L 500.4050, L100.0100 #### [facility] [address] [place], [address] Monocytes/100 WBC (Bld) 3.2 % Normal 0-10 [facility] Comment on above: Performed By: #### L 500.4050, L100.0100 #### [facility] [address] [place], [address] Neutrophils/100 WBC (Bld) 93.0 % High 47-70 [facility] Comment on above: Performed By: #### L 500.4050, L100.0100 #### [facility] [address] [place], [address] Nucleated RBC (Bld) [#/Vol] 0 10*3/uL Normal 0-5 [facility] Comment on above: Performed By: #### L 500.4050, L100.0100 #### [facility] [address] [place], [address] Platelet mean volume (Bld) [Entitic vol] 11.2 fL Normal 6.2-12.0 [facility] Comment on above: Performed By: #### L 500.4050, L100.0100 #### [facility] [address] [place], [address] Platelets (Bld) [#/Vol] 172 10*3/uL Normal 150-450 [facility] Comment on above: Performed By: #### L 500.4050, L100.0100 #### [facility] [address] [place], [address] RBC (Bld) [#/Vol] 3.13 10*6/uL Low 4.2-5.4 [facility] Comment on above: Performed By: #### L 500.4050, L100.0100 #### [facility] [address] [place], [address] RDW SD 49.8 fl High 35.1-43.9 [facility] Comment on above: Performed By: #### L 500.4050, L100.0100 #### [facility] [address] [place], [address] WBC (Bld) [#/Vol] 18.6 10*3/uL High 4.4-11.0 [facility] Comment on above: Performed By: #### L 500.4050, L100.0100 #### [facility] [address] [place], [address] Colonoscopy Reporton 024 Colonoscopy Report [facility] Medical Records Department [address] [place] [address] Colonoscopy Report MR#: [id number] Acct: [id number] Name: AVIS PAYNE Rep #: [id number] : 1960 63 From: Baldo Tello DO PCP: Dr. Kaleigh Rosas MD Status:ADM IN Patient Name: Avis Payne Procedure Date: 12/19/2023 8:13 AM Date of : 1960 Age: 63 Procedure: Colonoscopy Indications: Abdominal pain in the right lower quadrant, Lower abdominal pain, Abnormal CT of the GI tract Providers: Baldo Tello DO Medicines: Monitored Anesthesia Care Patient Profile: This is a 63 year old female. Refer to note in patient chart for documentation of history and physical. Last Colonoscopy: date unknown. Unable to locate last colonoscopy report. Complications: No immediate complications. Procedure: Pre-Anesthesia Assessment: - Prior to the procedure, a History and Physical was performed, and patient medications and allergies were reviewed. The patient is competent. The risks and benefits of the procedure and the sedation options and risks were discussed with the patient. All questions were answered and informed consent was obtained. Patient identification and proposed procedure were verified by the physician in the pre-procedure area. Mental Status Examination: alert and oriented. Airway Examination: normal oropharyngeal airway and neck mobility. Respiratory Examination: clear to auscultation. CV Examination: normal. Prophylactic Antibiotics: The patient does not require prophylactic antibiotics. Prior Anticoagulants: The patient has taken no anticoagulant or antiplatelet agents. ASA Grade Assessment: II - A patient with mild systemic disease. After reviewing the risks and benefits, the patient was deemed in satisfactory condition to undergo the procedure. The anesthesia plan was to use monitored anesthesia care (MAC). Immediately prior to administration of medications, the patient was re-assessed for adequacy to receive sedatives. The heart rate, respiratory rate, oxygen saturations, blood pressure, adequacy of pulmonary ventilation, and response to care were monitored throughout the procedure. The physical status of the patient was re-assessed after the procedure. After I obtained informed consent, the scope was passed under direct vision. Throughout the procedure, the patient's blood pressure, pulse, and oxygen saturations were monitored continuously. The Colonoscope was introduced through the anus and advanced to the terminal ileum. The colonoscopy was performed without difficulty. The patient tolerated the procedure well. The quality of the bowel preparation was adequate. The terminal ileum, ileocecal valve, appendiceal orifice, and rectum were photographed. Scope In: 8:26:30 AM Scope Withdrawal Time 0 hours 7 minutes 50 seconds Scope Out: 8:40:44 AM Total Procedure Duration Time 0 hours 14 minutes 14 seconds Findings: Multiple small and large-mouthed diverticula were found in the recto-sigmoid colon and sigmoid colon. Localized moderate inflammation characterized by congestion (edema), erosions and erythema was found in the rectum, in the recto-sigmoid colon and in the sigmoid colon. Biopsies were taken with a cold forceps for histology. Verification of patient identification for the specimen was done. Estimated blood loss was minimal. A 5 mm anal fissure was found in the anal canal. The terminal ileum appeared normal. Biopsies were taken with a cold forceps for histology. Verification of patient identification for the specimen was done. Estimated blood loss was minimal. The digital rectal exam findings include anal stricture. Impression: - Diverticulosis in the recto-sigmoid colon and in the sigmoid colon. - Localized moderate inflammation was found in the rectum, in the recto-sigmoid colon and in the sigmoid colon secondary to colitis. Biopsied. - Anal fissure. - The examined portion of the ileum was normal. Biopsied. - Anal stricture found on digital rectal exam. Recommendation: - [facility]. - Resume regular diet. - Continue present medications. - Await pathology results. - Repeat colonoscopy in 5 years for surveillance. Procedure Code(s): --- Professional --- 45903, Colonoscopy, flexible; with biopsy, single or multiple CPT copyright 2021 [employer]. All rights reserved. The codes documented in this report are preliminary and upon video recorder mechanic review may be revised to meet current compliance requirements. Baldo Tello DO 12/19/2023 8:48:08 AM This report has been signed electronically. Number of Addenda: 0 Note Initiated On: 12/19/2023 8:13 AM 12/19/23 0848 Date Baldo Gilbertignkelly Signature: Date __ (more content not included)... Normal [facility] MR/POSTOP.Ezequiel 12-19-2023 MR/POSTOP.NAGI [facility] Medical Records Department [address] [place] [address] Anesthesia Postop Eval I 12/19/23 0853 MR#: [id number] Acct: [id number] Name: AVIS PAYNE SUSY Rep #: [id number] : 1960 63 From: Marino Perez MD PCP: Dr. Kaleigh Rosas MD Status:ADM IN Y Race: C Location: [place] [address] Anesthesia: Postop Eval I Current Vital Signs Temperature: 97.7 F Pulse Rate: 69 Blood Pressure: 138/76 Respiratory Rate: 16 Pulse Ox: 96 Oxygen Delivery Method: Room Air Assessment Airway patent: Yes Spontaneous unlabored respirations: Yes Mental status: Awake and Calm nausea: No Vomiting: No Anesthesia Complication: No Fluid Hydration Crystalloid volume administer (ml): 200 Total IV fluid infused: 200 Progress Note Anesthesia document: Postop Eval 1 completed: Yes 12/19/23 0856 Date Marino Perez MD Cosigner Signature: Date CC: Signed Normal [facility] MR/[id number] 12-19-2023 [facility] Medical Records Department [address] [facility] [place] [place] [address] Anesthesia Postop Eval II 12/19/23 0906 MR#: [id number] Acct: [id number] Name: AVIS PAYNE SUSY Rep #: [id number] : 1960 63 From: Marino Perez MD PCP: Dr. Kaleigh Rosas MD Status:ADM IN Y Race: C Location: [place] [address] Anesthesia Postop Eval I Sum Postop Eval Completion status Anesthesia document: Postop Eval 1 completed: Yes Anesthesia Postop Eval I Summary Anesthesia Postop Eval I Summary: Anesthesia Postop Eval I: Assessment Summary Airway patent Yes 12/19/23 08:56 Spontaneous unlabored Yes 12/19/23 08:56 respirations Mental status Awake,Calm 12/19/23 08:56 nausea No 12/19/23 08:56 Vomiting No 12/19/23 08:56 Anesthesia Postop Eval I: Fluid Summary Crystalloid volume administer 200 12/19/23 08:56 (ml) Colloids volume administered ( ml) Blood Product volume administered (ml) Total IV fluid infused 200 12/19/23 08:56 Anesthesia Postop Eval I: Summary Notes Anesthesia Complication No 12/19/23 08:56 Anesthesia Complication Comment: Post-operative progress note Anesthesia: Postop Eval II Evaluation Mental status: Awake and Calm Pain Level: 0 nausea: No Vomiting: No Complications Anesthesia Complication: No 12/19/2307 Date Marino Perez MD Cosigner Signature: Date CC: Signed Normal [facility] Surgery Specimen Level Johnathan 12-19-2023 Surgery Specimen Level IV Patient Age/Sex Location Account Attending Physician STEPHANIEAVIS JOINER SUSY 63/F MS3 [id number] Dr. Igor Hdez MD Specimen: [id number] Received: 12/19/23 Status: FRITZ Franco Num: [id number] Spec Type: COLON BX Subm Dr: DO DAYDAY Ramos OPERATION: Colonoscopy PRE-OP DIAGNOSIS: Ileocolitis TISSUE SUBMITTED: A- Terminal ileum biopsy, B- Sigmoid colon biopsy MICROSCOPIC DIAGNOSIS A. Terminal ileum, biopsy: Fragments of small intestinal mucosa, no pathologic diagnosis. B. Sigmoid colon, biopsy: Fragments of colonic mucosa, no pathologic diagnosis. Prisca 12/21/2023 MICROSCOPIC DESCRIPTION Slides are reviewed. GROSS DESCRIPTION A. Received in fixative is one container labeled with the patient's name and designated Terminal ileum biopsy. The specimen consists of two irregular fragments of light smith soft tissue that measures in aggregate 0.5 x 0.4 x 0.1 cm. The specimen is totally submitted in one cassette. B. Received in fixative is one container labeled with the patient's name and designated Sigmoid colon biopsy. The specimen consists of multiple irregular fragments of light smith soft tissue that in aggregate measure 1.0 x 0.3 x 0.1 cm. The specimen is totally submitted in one cassette. 12/20/2023 TC:4 CPT:82808g3 Patient Age/Sex Location Account Attending Physician AVIS PAYNE 63/F MS3 [id number] Dr. Igor Hdez MD Signed (signature on file) Dr. Kevin Melendez MD 12/21/23 1015 Normal [facility] Comment on above: Performed By: #### L 503.6005 #### [facility] [address] [place], [place], [id number] 12 Lead EKGon 12-18-2023 12 Lead EKG [facility] Cardiovascular Services [address] [place] [address] 12 Lead EKG 12/18/23 0713 MR#: [id number] Acct: [id number] Name: AVIS PAYNE Rep #: [id number] : 1960 63 From: José Manuel Whiteside MD Attending Dr: Dr. Igor Hdez MD Status : ADM IN Ordering Dr: Toño Ashton MD Date: 12/18/23 Location: [facility] Sex: F C Admitted: 12/17/23 Test Reason : PREOP Blood Pressure : / mmHG Vent. Rate : 092 BPM Atrial Rate : 092 BPM P-R Int : 134 ms QRS Dur : 072 ms QT Int : 382 ms P-R-T Axes : 044 013 023 degrees QTc Int : 472 ms Normal sinus rhythm Normal ECG No previous ECGs available Confirmed by José Manuel Whiteside ([id number]), video news editor KIRSTIN RIZZO ([id number]) on 12/20/2023 1:32:29 PM Referred By: GELACIO Confirmed By:José Manuel Whiteside 12/20/23 1332 Date José Manuel Whiteside MD CC: Dr. Kaleigh Rosas MD; Dr. Toño Ashton MD; Dr. Igor Hdez MD Signed Normal [facility] Basic Metabolic Profile (BMP )on 12-18-2023 BUN/CRE 15.7 RATIO Normal 10-20 [facility] Comment on above: Order Comment: Y Performed By: #### L 503.6005 #### [facility] [address] [place], [place], [id number] CA,Total 9.3 mg/dL Normal 8.5-10.1 [facility] Comment on above: Order Comment: Y Performed By: #### L 503.6005 #### [facility] [address] [place], [address] Chloride [Moles/Vol] 103 mmol/L Normal 98-107 [facility] Comment on above: Order Comment: Y Performed By: #### L 503.6005 #### [facility] [address] [place], [address] CO2 [Moles/Vol] 20.0 mmol/L Low 21.0-32.0 [facility] Comment on above: Order Comment: Y Performed By: #### L 503.6005 #### [facility] [address] [place], [address] Creatinine [Mass/Vol] 0.76 mg/dL Normal 0.55-1.02 [facility] Comment on above: Order Comment: Y Result Comment: The validity of the calculated GFR GFRAA in patients over 70 years has not been determined. Clinical correlation is essential. Performed By: #### L 503.6005 #### [facility] [address] [place], [address] ECRCL 53.72 ml/min Normal [facility] Comment on above: Order Comment: Y Performed By: #### L 503.6005 #### [facility] [address] [place], [address] EST GFR - AA 98 mL/min Normal >60 [facility] Comment on above: Order Comment: Y Result Comment: Afri can [place] GFR Calc Performed By: #### L 503.6005 #### [facility] [address] [place], [address] GAP 9 Normal 5-15 [facility] Comment on above: Order Comment: Y Performed By: #### L 503.6005 #### [facility] [address] [place], [address] GFR/1.73 sq M.predicted among non-blacks MDRD (S/P/Bld) [Vol rate/Area] 81 mL/min/{1.73_m2} Normal >60 [facility] Comment on above: Order Comment: Y Result Comment: Non- GFR Calc Performed By: #### L 503.6005 #### [facility] [address] [place], [address] Glucose [Mass/Vol] 164 mg/dL High 74-106 [facility] Comment on above: Order Comment: Y Result Comment: Fast ing Glucose result greater than or equal to 126 mg/dL suggests DIABETES MELLITUS per A.D.A. criteria. Performed By: #### L 503.6005 #### [facility] [address] [place], [address] Potassium [Moles/Vol] 3.6 mmol/L Normal 3.5-5.1 [facility] Comment on above: Order Comment: Y Performed By: #### L 503.6005 #### [facility] [address] [place], [address] Sodium [Moles/Vol] 132 mmol/L Low 136-145 [facility] Comment on above: Order Comment: Y Performed By: #### L 503.6005 #### [facility] [address] [place], [address] Urea nitrogen [Mass/Vol] 12 mg/dL Normal 7-18 [facility] Comment on above: Order Comment: Y Performed By: #### L 503.6005 #### [facility] [address] [place], [address] CBC W/Diff, Automatedon 09-2 Absolute Lymph 0.62 X10 3/uL Low 0.83-4.51 [facility] Comment on above: Order Comment: Y Performed By: #### L 503.6005 #### [facility] [address] [place], [address] Absolute Neut 21.8 X10 3/uL High 2.0-7.7 [facility] Comment on above: Order Comment: Y Performed By: #### L 503.6005 #### [facility] [address] [place], [address] Basophils/100 WBC (Bld) 0.5 % Normal 0-1 [facility] Comment on above: Order Comment: Y Performed By: #### L 503.6005 #### [facility] [address] [place], [address] Eosinophils/100 WBC (Bld) 0.0 % Normal 0-5 [facility] Comment on above: Order Comment: Y Performed By: #### L 503.6005 #### [facility] [address] [place], [address] Erythrocyte distribution width (RBC) [Ratio] 13.5 % Normal 11.6-14.6 [facility] Comment on above: Order Comment: Y Performed By: #### L 503.6005 #### [facility] [address] [place], [address] Hematocrit (Bld) [Volume fraction] 40.2 % Normal 37-47 [facility] Comment on above: Order Comment: Y Performed By: #### L 503.6005 #### [facility] [address] [place], [address] Hemoglobin (Bld) [Mass/Vol] 13.1 g/dL Normal 12.0-15.0 [facility] Comment on above: Order Comment: Y Performed By: #### L 503.6005 #### [facility] [address] [place], [address] IG% 0.600 Normal 0.0-0.9 [facility] Comment on above: Order Comment: Y Result Comment: IG% - Immature Granulocytes (promyelocytes, myelocytes and metamyelocytes) > 1% indicates that a LEFT SHIFT is Present. Performed By: #### L 503.6005 #### [facility] [address] [place], [address] Lymphocytes/100 WBC (Bld) 2.6 % Low 19-41 [facility] Comment on above: Order Comment: Y Performed By: #### L 503.6005 #### [facility] [address] [place], [address] MCH (RBC) [Entitic mass] 33.4 pg High 27.0-32.0 [facility] Comment on above: Order Comment: Y Performed By: #### L 503.6005 #### [facility] [address] [place], [address] MCHC (RBC) [Mass/Vol] 32.6 g/dL Normal 32-36 [facility] Comment on above: Order Comment: Y Performed By: #### L 503.6005 #### [facility] [address] [place], [address] MCV (RBC) [Entitic vol] 102.6 fL High 81-99 [facility] Comment on above: Order Comment: Y Performed By: #### L 503.6005 #### [facility] [address] [place], [address] Monocytes/100 WBC (Bld) 3.8 % Normal 0-10 [facility] Comment on above: Order Comment: Y Performed By: #### L 503.6005 #### [facility] [address] [place], [address] Neutrophils/100 WBC (Bld) 92.5 % High 47-70 [facility] Comment on above: Order Comment: Y Performed By: #### L 503.6005 #### [facility] [address] [place], [address] Nucleated RBC (Bld) [#/Vol] 0 10*3/uL Normal 0-5 [facility] Comment on above: Order Comment: Y Performed By: #### L 503.6005 #### [facility] [address] [place], [address] Platelet mean volume (Bld) [Entitic vol] 10.4 fL Normal 6.2-12.0 [facility] Comment on above: Order Comment: Y Performed By: #### L 503.6005 #### [facility] [address] [place], [address] Platelets (Bld) [#/Vol] 177 10*3/uL Normal 150-450 [facility] Comment on above: Order Comment: Y Performed By: #### L 503.6005 #### [facility] [address] [place], [address] RBC (Bld) [#/Vol] 3.92 10*6/uL Low 4.2-5.4 [facility] Comment on above: Order Comment: Y Performed By: #### L 503.6005 #### [facility] [address] [place], [address] RDW SD 51.7 fl High 35.1-43.9 [facility] Comment on above: Order Comment: Y Performed By: #### L 503.6005 #### [facility] [address] [place], [address] WBC (Bld) [#/Vol] 23.6 10*3/uL High 4.4-11.0 [facility] Comment on above: Order Comment: Y Performed By: #### L 503.6005 #### [facility] [address] [place], [address] CBC W/Diff, Automatedon 11-28 SMEAR COMMENT Normal [facility] Comment on above: Result Comment: BAND S NOTED Performed By: #### L 100.0100, L500.4050 #### [facility] [address] [place], [address] Comprehensive Metabolic Prof ilon 12-17-2023 Albumin [Mass/Vol] 2.7 g/dL Low 3.2-5.0 [facility] Comment on above: Performed By: #### L 100.0100, L500.4050 #### [facility] [address] [place], [address] Albumin/Globulin [Mass ratio] 0.8 {ratio} Low 0.9-2.4 [facility] Comment on above: Performed By: #### L 100.0100, L500.4050 #### [facility] [address] [place], [address] ALK P 40 U/L Low 45-117 [facility] Comment on above: Performed By: #### L 100.0100, L500.4050 #### [facility] [address] [place], [address] ALT [Catalytic activity/Vol] 24 U/L Normal 13-56 [facility] Comment on above: Performed By: #### L 100.0100, L500.4050 #### [facility] [address] [place], [address] AST [Catalytic activity/Vol] 18 U/L Normal 15-37 [facility] Comment on above: Performed By: #### L 100.0100, L500.4050 #### [facility] [address] [place], [address] Bilirubin [Mass/Vol] 0.80 mg/dL Normal 0.20-1.00 [facility] Comment on above: Result Comment: For patients on eltrombopag therapy, use of [employer] [place] TBIL is not recommended. Performed By: #### L 100.0100, L500.4050 #### [facility] [address] [place], [address] BUN/CRE 15.3 RATIO Normal 10-20 [facility] Comment on above: Performed By: #### L 100.0100, L500.4050 #### [facility] [address] [place], [address] CA,Total 8.4 mg/dL Low 8.5-10.1 [facility] Comment on above: Performed By: #### L 100.0100, L500.4050 #### [facility] [address] [place], [address] Chloride [Moles/Vol] 112 mmol/L High 98-107 [facility] Comment on above: Performed By: #### L 100.0100, L500.4050 #### [facility] [address] [place], [address] CO2 [Moles/Vol] 21.0 mmol/L Normal 21.0-32.0 [facility] Comment on above: Performed By: #### L 100.0100, L500.4050 #### [facility] [address] [place], [address] Creatinine [Mass/Vol] 0.72 mg/dL Normal 0.55-1.02 [facility] Comment on above: Result Comment: The validity of the calculated GFR GFRAA in patients over 70 years has not been determined. Clinical correlation is essential. Performed By: #### L 100.0100, L500.4050 #### [facility] [address] [place], [address] ECRCL 56.30 ml/min Normal [facility] Comment on above: Performed By: #### L 100.0100, L500.4050 #### [facility] [address] [place], [address] EST GFR - AA 105 mL/min Normal >60 [facility] Comment on above: Result Comment: Afri can Eritrean GFR Calc Performed By: #### L 100.0100, L500.4050 #### [facility] [address] [place], [address] GAP 7 Normal 5-15 [facility] Comment on above: Performed By: #### L 100.0100, L500.4050 #### [facility] [address] [place], [address] GFR/1.73 sq M.predicted among non-blacks MDRD (S/P/Bld) [Vol rate/Area] 87 mL/min/{1.73_m2} Normal >60 [facility] Comment on above: Result Comment: Non- GFR Calc Performed By: #### L 100.0100, L500.4050 #### [facility] [address] [place], [address] Globulin (S) [Mass/Vol] 3.5 g/dL Normal 2.2-4.2 [facility] Comment on above: Performed By: #### L 100.0100, L500.4050 #### [facility] [address] [place], [address] Glucose [Mass/Vol] 123 mg/dL High 74-106 [facility] Comment on above: Result Comment: Fast ing Glucose result from 100 to 125 mg/dL suggests IMPAIRED HOMEOSTASIS per A.D.A. criteria. Performed By: #### L 100.0100, L500.4050 #### [facility] [address] [place], [address] Potassium [Moles/Vol] 3.9 mmol/L Normal 3.5-5.1 [facility] Comment on above: Performed By: #### L 100.0100, L500.4050 #### [facility] [address] [place], [address] Sodium [Moles/Vol] 140 mmol/L Normal 136-145 [facility] Comment on above: Performed By: #### L 100.0100, L500.4050 #### [facility] [address] [place], [address] T PROT 6.2 g/dL Low 6.4-8.2 [facility] Comment on above: Performed By: #### L 100.0100, L500.4050 #### [facility] [address] [place], [address] Urea nitrogen [Mass/Vol] 11 mg/dL Normal 7-18 [facility] Comment on above: Performed By: #### L 100.0100, L500.4050 #### [facility] [address] [place], [address] Consultation - Surgicalon Consultation - Surgical [facility] Medical Records Department [address] [place] [address] Consultation - Surgical 12/17/23 0753 MR#: [id number] Acct: [id number] Name: AVIS PAYNE Rep #: [id number] : 1960 63 From: Kesha Venegas MD PCP: Dr. Kaleigh Rosas MD Status:ADM IN Location: [address] Assessment Plan Assessment/Plan (1) Ileocolitis: PLAN: Plan Did review CT abdomen pelvis patient does have inflammation and thickening of the distal small bowel as well as right side of the colon. Discussed with patient that there be no plans for any surgical intervention for the appendix as the rest the tissue is also inflamed. Will defer management to GI. Patient's labs currently pending. Patient is on Zosyn. Patient has no further question this time. Dr. Rivera will be rounding for me over the weekend. Kesha Venegas M.D. Pager: [phone] [facility] [address] [place] [address], Outpatient [place], [address] [place] [address] Office: [phone] HPI Consult Data Date of Consult: 12/17/23 HPI Narrative HPI Narrative: AVIS PAYNE, is a 63 F who presents to the ER due to abdominal pain. Patient states pain started early day a.m. Patient states she has been having some diarrhea some normal bowel movements as well. Patient has had some nausea as well. Patient is never had previous colonoscopy. Patient denies any family history of inflammatory bowel disease. Patient CT abdomen pelvis showed inflammation of the distal small bowel as well as the right colon question possible appendicitis as well. Patient's white blood count is 15.8 on admission and her lactic acid was 3.6 after IV fluids it went down to 1.1. Patient denies any history of fear of food. Patient still rates her pain 7???8/10. PFSH Medical History CKD (chronic kidney disease), stage II Heavy alcohol use Tobacco use Hypertension Atherosclerosis of right lower extremity with intermittent claudication Left carotid bruit PAD (peripheral artery disease) Gout Home Medications ???Medication ???Instructions ???Recorded ???Last Taken ???Type B-complex with vitamin C 1 cap PO DAILY 06/16/23 Unknown History calcium carbonate (Calcium 600) 600 mg PO DAILY 06/16/23 Unknown History potassium chloride 20 mEq oral 20 meq PO DAILY 06/16/23 Unknown History packet aspirin 81 mg tablet,delayed 81 mg PO DAILY #30 tabs 07/29/23 Unknown Rx release (Adult Aspirin Regimen) ibuprofen 200 mg tablet 400 mg PO Q6H PRN pain 07/29/23 Unknown History lisinopril 10 mg tablet 10 mg PO DAILY #90 tabs 09/23/23 Unknown Rx rosuvastatin 20 mg tablet 20 mg PO DAILY #30 tabs 10/20/23 Unknown Rx Allergy/AdvReac Type Severity Reaction Status Date / Time No Known Allergies Allergy Verified 12/16/23 16:44 Family History Grandmother Diabetes Mother Kidney disease Heart disease Father Heart disease Surgical History No pertinent past surgical history Social History (Updated 12/17/23 @ 00:[address] Samreen Dunham MD) household members: spouse housing: house current occupational status: employed current occupation: [employer] Smoking Status: Current every day smoker tobacco type: cigarettes Tobacco: How many years used: 44 Electronic Cigarette Use: not used alcohol intake: current alcohol intake frequency: 0-2 drinks per day Alcohol type: hard liquor details: Drinks 2 vodka drinks daily, potentially more. substance use type: does not use what type of physical activity do you participate in: walking and weight training frequency: 3-4 times per week seatbelt use: always do you feel safe at home: Yes ROS Constitutional Constitutional: Reports anorexia; Denies chills ENT HEENT: Denies dysphagia Cardiovascular Cardiovascular: Denies chest pain Respiratory/Chest Respiratory/Chest: Denies productive cough Gastrointestinal Gastrointestinal: Reports abdominal pain, diarrhea and nausea Genitourinary Genitourinary: Denies dysuria Musculoskeletal Musculoskeletal: Denies joint swelling Integumentary Integumentary: Denies jaundice Neurologic Neurologic: Denies focal weakness Endocrine Endocrinology: Denies palpitations Hematologic/Lymphati c Hematologic/Lymphati c: Denies easy bleeding Physical Exam Const alert, oriented x3 and no apparent distress HEENT normocephalic and head/scalp atraumatic Resp normal respiratory effort Cardio regular rate GI soft to palpation; Negative for non-distended Palpation: tender LLQ and RLQ and guarding other (Voluntary) Extremity no clubbing, cyanosis or edema Neuro CN's II-XII intact bilaterally Psych mental status grossly n (more content not included)... Normal [facility] H AND P Exam - Hospitaliston 12-17-2023 H&P Exam - Hospitalist [facility] Medical Records Department [address] [place] [address] H P Exam - Hospitalist 12/17/23 0012 MR#: [id number] Acct: [id number] Name: AVIS PAYNE Rep #: [id number] : 1960 63 From: Samreen Dunham MD PCP: Dr. Kaleigh Rosas MD Status:REG ER Location: ED HPI - General General Date of Admission: 12/17/23 Date of Service: 12/17/23 Chief Complaint: Abdominal pain. HPI Narrative The patient is a 63 y/o F w/ PMHx: Tobacco use, Heavy EtOH use/EtOH abuse, HTN, CKD stage II per GFR trending, Known L carotid bruit w/ pending carotid US outpatient, RLE PAD, Gout, Severe protein calorie malnutrition who presents to the [facility] ED initially on 12/16/23 with history of abdominal discomfort with intermittent diarrhea over the last week awaking on morning on day prior with pain which is since worsened with associated nausea and emesis more tender in the bilateral lower quadrants with no rebound or guarding prompting eventual ED evaluation to be cautious. Patient reporting pain 7/10 in severity and noted to have initially reported 8/10 in severity initially upon ED arrival. Workup in the ED included T98.7, heart rate 87, BP 193/95, respiratory rate 18, 90% on room air with transient heart rate increased to 121 with most recent repeat vitals heart rate 98, BP 112/81, respiratory rate 30, 96% on room air, CBC with WBC 15.8, human 13.1, platelet 232 with left shift, CMP with BUN/creatinine 20/0.86, GFR 70, glucose 110, hepatic profile not marked appearing, lipase 27, lactic acid initial 3.6 with repeat lactic acid 1.1, urinalysis not marked appearing, CT abdomen and pelvis with contrast with concentric thickening of the delgado of multiple loops of mid to distal small bowel with thickening of the folds in association with an a hostile appearance of the ascending and transverse colon consistent possibly with ileocolitis with mild diffuse mesenteric edema and a small amount of ascites within the right paracolic gutter, mild dilatation of the appendix and possibility of early changes of acute appendicitis cannot be entirely excluded. In the ED patient ministered 2 L normal saline, morphine 4 mg IV x 2, Zofran 4 mg IV x 1 as well as IV Zosyn. Per discussion with ED they did review imaging also with Radiology directly and went over all the vasculature to assure no concerns given her PAD history. [facility] Medical History CKD (chronic kidney disease), stage II Heavy alcohol use Tobacco use Hypertension Atherosclerosis of right lower extremity with intermittent claudication Left carotid bruit PAD (peripheral artery disease) Gout Home Medications ???Medication ???Instructions ???Recorded ???Last Taken ???Type B-complex with vitamin C 1 cap PO DAILY 06/16/23 Unknown History calcium carbonate (Calcium 600) 600 mg PO DAILY 06/16/23 Unknown History potassium chloride 20 mEq oral 20 meq PO DAILY 06/16/23 Unknown History packet aspirin 81 mg tablet,delayed 81 mg PO DAILY #30 tabs 07/29/23 Unknown Rx release (Adult Aspirin Regimen) ibuprofen 200 mg tablet 400 mg PO Q6H PRN pain 07/29/23 Unknown History lisinopril 10 mg tablet 10 mg PO DAILY #90 tabs 09/23/23 Unknown Rx rosuvastatin 20 mg tablet 20 mg PO DAILY #30 tabs 10/20/23 Unknown Rx Allergy/AdvReac Type Severity Reaction Status Date / Time No Known Allergies Allergy Verified 12/16/23 16:44 Family History Grandmother Diabetes Mother Kidney disease Heart disease Father Heart disease Surgical History No pertinent past surgical history Social History (Updated 12/17/23 @ 00:[address] Samreen Dunham MD) household members: spouse housing: house current occupational status: employed current occupation: [employer] Smoking Status: Current every day smoker tobacco type: cigarettes Tobacco: How many years used: 44 Electronic Cigarette Use: not used alcohol intake: current alcohol intake frequency: 0-2 drinks per day Alcohol type: hard liquor details: Drinks 2 vodka drinks daily, potentially more. substance use type: does not use what type of physical activity do you participate in: walking and weight training frequency: 3-4 times per week seatbelt use: always do you feel safe at home: Yes ROS ROS Narrative Admission Review of Systems: CONSTITUTIONAL: No weight loss, fever, chills, + weakness or fatigue. HEENT: Eyes: No visual loss, blurred vision, double vision or yellow sclerae. Ears, Nose, Throat: No hearing loss, sneezing, congestion, runny nose or sore throat. SKIN: No rash or itching, lesions, wounds. CARDIOVASCULAR: No chest pain, chest pressure or chest discomfort, palpitations, edema, orthopnea, syncopal events. (more content not included)... Normal [facility] M100.019on 12-17-2023 M100.019 Negative Normal [facility] Comment on above: Performed By: #### L 503.6005 #### [facility] [address] [place], [address] MR/CON.PCM.Azra 12-17-2023 MR/CON.PCM.GI [facility] [facility] Medical Records Department [address] [place] [address] Consultation - GI 12/17/23 1901 MR#: [id number] Acct: [id number] Name: AVIS PAYNE Rep #: [id number] : 1960 63 From: Baldo Friend DO PCP: Dr. Kaleigh Rosas MD Status:ADM IN Location: [place] [address] HPI Consult Data Date of Consult: 12/17/23 HPI Narrative Reason for Consultation: Abnormal imaging HPI Narrative: AVIS PAYNE, is a 63 y/o F w/ Severe protein calorie malnutrition who presents to the [facility] ED initially on 12/16/23 with history of abdominal discomfort with intermittent diarrhea over the last week. She also complains of awaking on morning on day prior with pain which is since worsened with associated nausea and emesis more tender in the bilateral lower quadrants with no rebound or guarding prompting eventual ED evaluation to be cautious. Patient reporting pain 7/10 in severity and noted to have initially reported 8/10 in severity initially upon ED arrival. Workup in the ED included T98.7, heart rate 87, BP 193/95, respiratory rate 18, 90% on room air with transient heart rate increased to 121 with most recent repeat vitals heart rate 98, BP 112/81, respiratory rate 30, 96% on room air, CBC with WBC 15.8, human 13.1, platelet 232 with left shift, CMP with BUN/creatinine 20/0.86, GFR 70, glucose 110, hepatic profile not marked appearing, lipase 27, lactic acid initial 3.6 with repeat lactic acid 1.1, urinalysis not marked appearing CT abdomen and pelvis with contrast with concentric thickening of the delgado of multiple loops of mid to distal small bowel with thickening of the folds in association with an a hostile appearance of the ascending and transverse colon consistent possibly with ileocolitis with mild diffuse mesenteric edema and a small amount of ascites within the right paracolic gutter, mild dilatation of the appendix and possibility of early changes of acute appendicitis cannot be entirely excluded. In the ED patient ministered 2 L normal saline, morphine 4 mg IV x 2, Zofran 4 mg IV x 1 as well as IV Zosyn. [facility] Medical History CKD (chronic kidney disease), stage II Heavy alcohol use Tobacco use Hypertension Atherosclerosis of right lower extremity with intermittent claudication Left carotid bruit PAD (peripheral artery disease) Gout Home Medications ???Medication ???Instructions ???Recorded ???Last Taken ???Type B-complex with vitamin C 1 cap PO DAILY 06/16/23 Unknown History calcium carbonate (Calcium 600) 600 mg PO DAILY 06/16/23 Unknown History potassium chloride 20 mEq oral 20 meq PO DAILY 06/16/23 Unknown History packet aspirin 81 mg tablet,delayed 81 mg PO DAILY #30 tabs 07/29/23 Unknown Rx release (Adult Aspirin Regimen) ibuprofen 200 mg tablet 400 mg PO Q6H PRN pain 07/29/23 Unknown History lisinopril 10 mg tablet 10 mg PO DAILY #90 tabs 09/23/23 Unknown Rx rosuvastatin 20 mg tablet 20 mg PO DAILY #30 tabs 10/20/23 Unknown Rx Allergy/AdvReac Type Severity Reaction Status Date / Time No Known Allergies Allergy Verified 12/16/23 16:44 Family History Grandmother Diabetes Mother Kidney disease Heart disease Father Heart disease Surgical History No pertinent past surgical history Social History (Updated 12/17/23 @ 00:[address] Samreen Dunham MD) household members: spouse housing: house current occupational status: employed current occupation: runs [employer] Smoking Status: Current every day smoker tobacco type: cigarettes Tobacco: How many years used: 44 Electronic Cigarette Use: not used alcohol intake: current alcohol intake frequency: 0-2 drinks per day Alcohol type: hard liquor details: Drinks 2 vodka drinks daily, potentially more. substance use type: does not use what type of physical activity do you participate in: walking and weight training frequency: 3-4 times per week seatbelt use: always do you feel safe at home: Yes ROS Constitutional Constitutional: Reports anorexia; Denies chills ENT HEENT: Denies dysphagia Cardiovascular Cardiovascular: Denies chest pain Respiratory/Chest Respiratory/Chest: Denies productive cough Gastrointestinal Gastrointestinal: Reports abdominal pain, diarrhea and nausea Genitourinary Genitourinary: Denies dysuria Musculoskeletal Musculoskeletal: Denies joint swelling Integumentary Integumentary: Denies jaundice Neurologic Neurologic: Denies focal weakness Endocrine Endocrinology: Denies palpitations Hematologic/Lymphati c Hematologic/Lymphati c: Denies easy bleeding Physical Exam Const alert, oriented x3 and no apparent distress HEENT normocephalic and head/scalp (more content not included)... Normal [facility] Magnesiumon 12-17-2023 Magnesium [Mass/Vol] 1.6 mg/dL Normal 1.6-2.6 [facility] Comment on above: Order Comment: Comme nts: May add to ED labs Comments: may add to ED labs Performed By: #### L 501.2300, L501.5200 #### [facility] [address] [place], [address] Phosphoruson 12-17-2023 Phosphate [Mass/Vol] 3.3 mg/dL Normal 2.5-4.9 [facility] Comment on above: Order Comment: Comme nts: May add to ED labs Comments: may add to ED labs Performed By: #### L 501.2300, L501.5200 #### [facility] [address] [place], [address] RESPIRATORY PANEL MOLECULARo n 12-17-2023 RP PANEL ADENOVIRUS Not Detected INFLUENZA A Not Detected INFLUENZA A (SUBTYPE H1) Not Detected INFLUENZA A (SUBTYPE H3) Not Detected INFLUENZA B Not Detected HUMAN METAPHNEUMO Not Detected PARAINFLUENZA 1 Not Detected PARAINFLUENZA 2 Not Detected PARAINFLUENZA 3 Not Detected PARAINFLUENZA 4 Not Detected RHINOVIRUS Not Detected RSV A Not Detected RSV B Not Detected Normal [facility] Comment on above: Performed By: #### L 503.6005, L501.2450 #### [facility] [address] [place], [address] Abdomen/Pelvis W IV Cont ONL Yon 12-16-2023 Abdomen/Pelvis W IV Cont ONLY [facility] Services [address] [place], [place] [id number] ([phone] Abdomen/Pelvis W IV Cont ONLY MR#: [id number] Acct: [id number] Name: AVIS PAYNE Rep #: [id number] : 1960 F 63 From: Delgado Simpson MD PCP: Dr. Kaleigh Rosas MD Status: REG ER Study: Abdomen/Pelvis W IV Cont ONLY Date of Exam: Exam# [id number] Ordering Dr: Jonathan De Oliveira DO [id number] STUDY: CT ABDOMEN AND PELVIS WITH CONTRAST REASON FOR EXAM: Female, 63 years old. abdominal pain RADIATION DOSAGE (If Supplied By Facility): CTDIvol = ( 8.08 ) mGy, DLP = ( 285.40 ) mGycm TECHNIQUE: Transaxial images were obtained from the dome of the diaphragm to the symphysis pubis without oral contrast. IV 75mL Isovue-370 was administered. Sagittal and coronal images were reconstructed. Individualized dose optimization techniques were used for this CT. COMPARISON: None. FINDINGS: Small calcified granuloma in right lower lobe. The visualized portions of the heart are within normal limits. Mild ascites within the right subphrenic and left subphrenic spaces Normal liver. Normal gallbladder and extrahepatic biliary system. Normal spleen. Normal pancreas. Normal bilateral adrenal glands. Normal right kidney. Normal left kidney. Normal visualized stomach. There is concentric thickening of the delgado of multiple loops of mid to distal small bowel with thickening of the folds in association with an ahaustral appearance of the ascending and transverse colon most consistent with ileocolitis possibly Crohn''s disease. There is mild diffuse mesenteric edema and small amount of ascites within the right paracolic gutter and to a lesser extent on the left . There is mild dilatation of the appendix and the possibility of early changes of acute appendicitis not entirely excluded Atherosclerotic changes of the aorta without evidence for aneurysm. Normal inferior vena cava. Normal retroperitoneum. Normal urinary bladder. Normal abdominal wall. Lumbar spine demonstrates degenerative change. Grade 1 spondylolisthesis at L4-5 CT/Abdomen/Pelvis W IV Cont ONLY IMPRESSION: Findings which are most consistent with the ileal colitis possibly Crohn''s disease with associated mild mesenteric edema and ascites The appendix appears mildly dilated and coexisting early changes of acute appendicitis cannot be entirely excluded Clinical correlation is recommended Electronically Signed: Delgado Simpson MD at 21:39 EDT , CC: Dr. Kaleigh Rosas MD; Dr. Jonathan De Oliveira DO Body Worker: Signed Normal [facility] CBC W/Diff, Automatedon 11-27 Absolute Lymph 1.47 X10 3/uL Normal 0.83-4.51 [facility] Comment on above: Performed By: #### L 500.4050, L100.0100 #### [facility] [address] [place], [address] Absolute Neut 13.3 X10 3/uL High 2.0-7.7 [facility] Comment on above: Performed By: #### L 500.4050, L100.0100 #### [facility] [address] [place], [address] Basophils/100 WBC (Bld) 0.4 % Normal 0-1 [facility] Comment on above: Performed By: #### L 500.4050, L100.0100 #### [facility] [address] [place], [address] Eosinophils/100 WBC (Bld) 0.3 % Normal 0-5 [facility] Comment on above: Performed By: #### L 500.4050, L100.0100 #### [facility] [address] [place], [address] Erythrocyte distribution width (RBC) [Ratio] 13.7 % Normal 11.6-14.6 [facility] Comment on above: Performed By: #### L 500.4050, L100.0100 #### [facility] [address] [place], [address] Hematocrit (Bld) [Volume fraction] 39.9 % Normal 37-47 [facility] Comment on above: Performed By: #### L 500.4050, L100.0100 #### [facility] [address] [place], [address] Hemoglobin (Bld) [Mass/Vol] 13.1 g/dL Normal 12.0-15.0 [facility] Comment on above: Performed By: #### L 500.4050, L100.0100 #### [facility] [address] [place], [address] IG% 0.400 Normal 0.0-0.9 [facility] Comment on above: Result Comment: IG% - Immature Granulocytes (promyelocytes, myelocytes and metamyelocytes) > 1% indicates that a LEFT SHIFT is Present. Performed By: #### L 500.4050, L100.0100 #### [facility] [address] [place], [address] Lymphocytes/100 WBC (Bld) 9.3 % Low 19-41 [facility] Comment on above: Performed By: #### L 500.4050, L100.0100 #### [facility] [address] [place], [address] MCH (RBC) [Entitic mass] 33.4 pg High 27.0-32.0 [facility] Comment on above: Performed By: #### L 500.4050, L100.0100 #### [facility] [address] [place], [address] MCHC (RBC) [Mass/Vol] 32.8 g/dL Normal 32-36 [facility] Comment on above: Performed By: #### L 500.4050, L100.0100 #### [facility] [address] [place], [address] MCV (RBC) [Entitic vol] 101.8 fL High 81-99 [facility] Comment on above: Performed By: #### L 500.4050, L100.0100 #### [facility] [address] [place], [address] Monocytes/100 WBC (Bld) 5.3 % Normal 0-10 [facility] Comment on above: Performed By: #### L 500.4050, L100.0100 #### [facility] [address] [place], [address] Neutrophils/100 WBC (Bld) 84.3 % High 47-70 [facility] Comment on above: Performed By: #### L 500.4050, L100.0100 #### [facility] [address] [place], [address] Nucleated RBC (Bld) [#/Vol] 0 10*3/uL Normal 0-5 [facility] Comment on above: Performed By: #### L 500.4050, L100.0100 #### [facility] [address] [place], [address] Platelet mean volume (Bld) [Entitic vol] 10.6 fL Normal 6.2-12.0 [facility] Comment on above: Performed By: #### L 500.4050, L100.0100 #### [facility] [address] [place], [address] Platelets (Bld) [#/Vol] 232 10*3/uL Normal 150-450 [facility] Comment on above: Performed By: #### L 500.4050, L100.0100 #### [facility] [address] [place], [address] RBC (Bld) [#/Vol] 3.92 10*6/uL Low 4.2-5.4 [facility] Comment on above: Performed By: #### L 500.4050, L100.0100 #### [facility] [address] [place], [address] RDW SD 51.3 fl High 35.1-43.9 [facility] Comment on above: Performed By: #### L 500.4050, L100.0100 #### [facility] [address] [place], [address] WBC (Bld) [#/Vol] 15.8 10*3/uL High 4.4-11.0 [facility] Comment on above: Performed By: #### L 500.4050, L100.0100 #### [facility] [address] [place], [address] Comprehensive Metabolic Prof [facility] 12-16-2023 Albumin [Mass/Vol] 3.9 g/dL Normal 3.2-5.0 [facility] Comment on above: Performed By: #### L 500.4050, L100.0100 #### [facility] [address] [place], [address] Albumin/Globulin [Mass ratio] 1.0 {ratio} Normal 0.9-2.4 [facility] Comment on above: Performed By: #### L 500.4050, L100.0100 #### [facility] [address] [place], [address] ALK P 65 U/L Normal 45-117 [facility] Comment on above: Performed By: #### L 500.4050, L100.0100 #### [facility] [address] [place], [address] ALT [Catalytic activity/Vol] 34 U/L Normal 13-56 [facility] Comment on above: Performed By: #### L 500.4050, L100.0100 #### [facility] [address] [place], [address] AST [Catalytic activity/Vol] 25 U/L Normal 15-37 [facility] Comment on above: Performed By: #### L 500.4050, L100.0100 #### [facility] [address] [place], [address] Bilirubin [Mass/Vol] 0.50 mg/dL Normal 0.20-1.00 [facility] Comment on above: Result Comment: For patients on eltrombopag therapy, use of Dimension [place] TBIL is not recommended. Performed By: #### L 500.4050, L100.0100 #### [facility] [address] [place], [address] BUN/CRE 23.2 RATIO High 10-20 [facility] Comment on above: Performed By: #### L 500.4050, L100.0100 #### [facility] [address] [place], [address] CA,Total 9.5 mg/dL Normal 8.5-10.1 [facility] Comment on above: Performed By: #### L 500.4050, L100.0100 #### [facility] [address] [place], [address] Chloride [Moles/Vol] 105 mmol/L Normal 98-107 [facility] Comment on above: Performed By: #### L 500.4050, L100.0100 #### [facility] [address] [place], [address] CO2 [Moles/Vol] 23.0 mmol/L Normal 21.0-32.0 [facility] Comment on above: Performed By: #### L 500.4050, L100.0100 #### [facility] [address] [place], [address] Creatinine [Mass/Vol] 0.86 mg/dL Normal 0.55-1.02 [facility] Comment on above: Result Comment: The validity of the calculated GFR GFRAA in patients over 70 years has not been determined. Clinical correlation is essential. Performed By: #### L 500.4050, L100.0100 #### [facility] [address] [place], [address] ECRCL 47.13 ml/min Normal [facility] Comment on above: Performed By: #### L 500.4050, L100.0100 #### [facility] [address] [place], [address] EST GFR - AA 85 mL/min Normal >60 [facility] Comment on above: Result Comment: Afri can Erit[place]an GFR Calc Performed By: #### L 500.4050, L100.0100 #### [facility] [address] [place], [address] GAP 10 Normal 5-15 [facility] Comment on above: Performed By: #### L 500.4050, L100.0100 #### [facility] [address] [place], [address] GFR/1.73 sq M.predicted among non-blacks MDRD (S/P/Bld) [Vol rate/Area] 70 mL/min/{1.73_m2} Normal >60 [facility] Comment on above: Result Comment: Non- GFR Calc Performed By: #### L 500.4050, L100.0100 #### [facility] [address] [place], [address] Globulin (S) [Mass/Vol] 3.8 g/dL Normal 2.2-4.2 [facility] Comment on above: Performed By: #### L 500.4050, L100.0100 #### [facility] [address] [place], [address] Glucose [Mass/Vol] 110 mg/dL High 74-106 [facility] Comment on above: Result Comment: Fast ing Glucose result from 100 to 125 mg/dL suggests IMPAIRED HOMEOSTASIS per A.D.A. criteria. Performed By: #### L 500.4050, L100.0100 #### [facility] [address] [place], [address] Potassium [Moles/Vol] 3.9 mmol/L Normal 3.5-5.1 [facility] Comment on above: Performed By: #### L 500.4050, L100.0100 #### [facility] [address] [place], [address] Sodium [Moles/Vol] 138 mmol/L Normal 136-145 [facility] Comment on above: Performed By: #### L 500.4050, L100.0100 #### [facility] [address] [place], [address] T PROT 7.7 g/dL Normal 6.4-8.2 [facility] Comment on above: Performed By: #### L 500.4050, L100.0100 #### [facility] [address] [place], [address] Urea nitrogen [Mass/Vol] 20 mg/dL High 7-18 [facility] Comment on above: Performed By: #### L 500.4050, L100.0100 #### [facility] [address] [place], [address] Emergency Department Summary on 12-16-2023 Emergency Department Summary [facility] Medical Records Department [address] [place] [address] Emergency Department Summary 12/16/23 MR#: [id number] Acct: [id number] Name: AVIS PAYNE SUSY Rep #: [id number] : 1960 63 From: Jonathan De Oliveira DO PCP: Dr. Kaleigh Rosas MD Status:ADM IN Location: MS3 MSED-1 HPI History of Present Illness Chief Complaint: Abd Pain Narrative Narrative: Chief complaint and HPI: Abdominal pain. 63-year-old female with history of HTN, CKD, tobacco abuse, PAD presents for evaluation of abdominal pain. Patient states for the past week she has had intermittent diarrhea. She states this morning she woke up with abdominal pain that has progressively worsened. She endorses nausea and vomiting. Describes the pain as cramping. Located mostly in the lower abdomen. Denies any URI symptoms, chest pain, shortness of breath, dysuria, hematuria. Denies any bloody bowel movements. Endorses decreased p.o. intake. Not on blood thinners. Denies any abdominal surgeries. Review of systems: See HPI Medications: As listed on the chart Allergies: As listed on the chart PFSH: Per chart Vital signs: As listed on the chart. Reviewed. Physical exam: Gen: A O x3 Head: Normocephalic, atraumatic Eyes: No sclera icterus, conjunctiva clear ENT: Dry mucous membranes Neck: Trachea midline, No JVD CV: RRR, no murmurs, no peripheral edema Resp: Lungs CTA BL, no w/r/c GI: Abd soft, non-distended, tender to palpation in the bilateral lower quadrant, + voluntary guarding, no rebound or rigidity Musc: Full ROM, no deformity Skin: Warm, dry Neuro: Alert, oriented, grossly intact, sensation intact Psych: Cooperative [facility] Medical History CKD (chronic kidney disease), stage II Heavy alcohol use Tobacco use Hypertension Atherosclerosis of right lower extremity with intermittent claudication Left carotid bruit PAD (peripheral artery disease) Gout Home Medications ???Medication ???Instructions ???Recorded ???Last Taken ???Type B-complex with vitamin C 1 cap PO DAILY 06/16/23 Unknown History calcium carbonate (Calcium 600) 600 mg PO DAILY 06/16/23 Unknown History potassium chloride 20 mEq oral 20 meq PO DAILY 06/16/23 Unknown History packet aspirin 81 mg tablet,delayed 81 mg PO DAILY #30 tabs 07/29/23 Unknown Rx release (Adult Aspirin Regimen) ibuprofen 200 mg tablet 400 mg PO Q6H PRN pain 07/29/23 Unknown History lisinopril 10 mg tablet 10 mg PO DAILY #90 tabs 09/23/23 Unknown Rx rosuvastatin 20 mg tablet 20 mg PO DAILY #30 tabs 10/20/23 Unknown Rx Allergy/AdvReac Type Severity Reaction Status Date / Time No Known Allergies Allergy Verified 12/16/23 16:44 Family History Grandmother Diabetes Mother Kidney disease Heart disease Father Heart disease Surgical History No pertinent past surgical history Social History (Updated 12/17/23 @ 00:[address] Samreen Dunham MD) household members: spouse housing: house current occupational status: employed current occupation: [employer] Smoking Status: Current every day smoker tobacco type: cigarettes Tobacco: How many years used: 44 Electronic Cigarette Use: not used alcohol intake: current alcohol intake frequency: 0-2 drinks per day Alcohol type: hard liquor details: Drinks 2 vodka drinks daily, potentially more. substance use type: does not use what type of physical activity do you participate in: walking and weight training frequency: 3-4 times per week seatbelt use: always do you feel safe at home: Yes EXAM Physical Exam Const Vital Signs: 12/16/23 16:44 12/16/23 18:44 12/16/23 20:00 Temperature 98.7 F 97.3 F L Temperature Source Temporal Oral Pulse Rate 87 90 121 H Respiratory Rate 18 17 18 Blood Pressure 183/95 H 149/117 H 124/93 H Blood Pressure Mean 124 127 103 Pulse Ox 98 100 98 Oxygen Delivery Method Room Air Room Air Room Air 12/16/23 22:00 12/16/23 23:30 12/16/23 23:45 Temperature Temperature Source Pulse Rate 98 79 83 Respiratory Rate 30 H 24 H 21 H Blood Pressure 112/81 H 111/76 114/73 Blood Pressure Mean 91 87 86 Pulse Ox 96 98 96 Oxygen Delivery Method 12/17/23 00:00 Temperature Temperature Source Pulse Rate 80 Respiratory Rate 26 H Blood Pressure 121/68 H Blood Pressure Mean 84 Pulse Ox 96 Oxygen Delivery Method MDM MDM MDM Narrative Medical decision making narrative: 63-year-old female presents for evaluation of abdominal pain, diarrhea, nausea/vomiting. She is tender to palpation on physical exam with positive guarding. Differential diagnosis inclu (more content not included)... Normal [facility] Lactic Acidon 12-16-2023 Lactate [Moles/Vol] 1.1 mmol/L Normal 0.4-1.9 [facility] Comment on above: Order Comment: Y Performed By: #### L 503.6005 #### [facility] [address] [place], [address] Lactate [Moles/Vol] 3.6 mmol/L Invalid Interpretation Code 0.4-1.9 [facility] Comment on above: Order Comment: Y Performed By: #### L 503.6005, L501.2450 #### [facility] [address] [place], [address] Lipaseon 12-16-2023 Lipase [Catalytic activity/Vol] 27 U/L Normal 13-75 [facility] Comment on above: Result Comment: Quinn sethi note: LIPASE revised reference range effective 22. New Lipase methodology. Expected to produce lower values than the previous assay method. NEW Reference Range: 13 - 75 U/L Performed By: #### L 503.6005, L501.2450 #### [facility] [address] [place], [address] Urinalysis, Completeon 12-15 WBC 0-5 SEEN Normal 0-5 [facility] Comment on above: Order Comment: ROCK CTOR TO SPECIFY Performed By: #### L 500.4050, L100.0100 #### [facility] [address] [place], [address] BACTERIA 0 SEEN Normal None Seen [facility] Comment on above: Order Comment: ROCK CTOR TO SPECIFY Performed By: #### L 500.4050, L100.0100 #### [facility] [address] [place], [address] EPI,SQUAMOUS 0 SEEN Normal 5-10 [facility] Comment on above: Order Comment: COLLE CTOR TO SPECIFY Performed By: #### L 500.4050, L100.0100 #### [facility] [address] [place], [address] Mucus Ql (Urine sed) 0 SEEN Normal [facility] Comment on above: Order Comment: COLLE CTOR TO SPECIFY Performed By: #### L 500.4050, L100.0100 #### [facility] [address] [place], [address] RBC 0 SEEN Normal 0-5 [facility] Comment on above: Order Comment: [facility] CTOR TO SPECIFY Performed By: #### L 500.4050, L100.0100 #### [facility] [address] [place], [address] MR/BMS.Angelo 10-20-2023 MR/BMS.[facility] [address] [place] [address] OFFICE VISIT Date of Service: 10/20/23 MR#: [id number] Acct: [id number] Name: AVIS PAYNE Rep #: [id number] : 1960 Provider: HUANG Russell Age/Sex: 63/F Location: [facility] Status: Signed Intake Vital Signs 07/29/23 08:54 10/20/23 15:58 Height 5 ft 2.5 in Weight: 101 lb BP 176/96 H Blood Pressure Location Lt brachial Position Sitting Respiration 16 Pulse 64 Pulse Source Monitor Temp 98.6 F Temp Source Temporal Pulse Oximetry (%) 100 Oxygen Delivery Method room air Intake Visit Reasons: 12 W F/U Is patient in pain?: No Allergies No Known Allergies Allergy (Verified 10/20/23 16:00) Medications ???Medication ???Instructions ???Recorded ???Confirmed ???Type B-complex with vitamin C 1 cap PO DAILY 06/16/23 10/20/23 History calcium carbonate (Calcium 600) 600 mg PO DAILY 06/16/23 10/20/23 History potassium chloride 20 mEq oral 20 meq PO DAILY 06/16/23 10/20/23 History packet aspirin 81 mg tablet,delayed 81 mg PO DAILY #30 tabs 07/29/23 10/20/23 Rx release (Adult Aspirin Regimen) ibuprofen 200 mg tablet 400 mg PO Q6H PRN 07/29/23 10/20/23 History multivitamin 1 tab PO DAILY 07/29/23 10/20/23 History nicotine 21 mg/24 hr daily 1 patch transdermal DAILY #28 ea 08/02/23 10/20/23 Rx transdermal patch lisinopril 10 mg tablet 10 mg PO DAILY #90 tabs 09/23/23 10/20/23 Rx rosuvastatin 20 mg tablet 20 mg PO DAILY #30 tabs 10/20/23 10/20/23 Rx Have you fallen in the past year?: No PFSH Medical History Leg cramp Plantar fasciitis Gout Back pain Surgical History No pertinent past surgical history Family History Grandmother Diabetes Mother Kidney disease Heart disease Father Heart disease Social History household members: spouse housing: house current occupational status: employed current occupation: [employer] Smoking Status: Current every day smoker tobacco type: cigarettes Tobacco: How many years used: 20 Electronic Cigarette Use: not used alcohol intake: current alcohol intake frequency: 0-2 drinks per day Alcohol type: hard liquor substance use type: does not use what type of physical activity do you participate in: walking and weight training frequency: 3-4 times per week seatbelt use: always do you feel safe at home: Yes additional social history: Does not use aspirin daily. Occasional Ibuprofen use. HPI HPI HPI: AVIS PAYNE, is a 63 F who presents to the office today for follow-up of her RLE PAD with claudication. At last office visit, we had initiated ASA, statin, and pletal. She reports she took the pletal for about 10 days but had diarrhea to the point where she was losing weight so she had to stop taking this. She has continued to take the rosuvastatin and ASA without issue. She does feel that her RLE claudication is a little bit better. She has been trying to incorporate structured exercise. She remains without rest pain or wounds. At last OV, she had significant hypertension. She ended up following up with her PCP that same day and started lisinopril. Her BP has overall been better with the lisinopril but she has noticed blood pressure typically 150-160s systolic at home. Her BP is 176/96 in the office today. She is not having any CP, SOB, palpitations, vision changes. ROS General General: Yes weight change and weakness; No appetite, fatigue, colon cancer or breast cancer HEENT HEENT: No difficulty swallowing, eye injury, eye surgery, swollen glands or hoarseness Endo Endocrine: No thyroid disease, diabetes mellitus, thyroid cancer, Hair loss, heat intolerance or cold intolerance Skin Skin: No rash or changing moles Musc Musculoskeletal: Yes back problems and joint pain; No arthritis, rheumatoid arthritis or gout Cardio Cardiovascular: Yes high blood pressure; No murmur, pacemaker, heart disease, atrial fibrillation, heart attack, heart stent, palpitations, shortness of breat with exertion or chest pain Psych Psychiatric: No depression, anxiety or hearing voices Resp Respiratory: No shortness of breath, No sleep apnea, No cough, No COPD, No asthma, No emphysema and No wheezing Gastro Gastrointestinal: No abdominal pain, No nausea or vomiting, No diarrhea, No constipation, No blood in stool, No acid reflux, No hemorrhoids, No ulcers, No gallbladder problem and No black,tarry stools [place] Hematologic: No blood thinners, No blood disorders, No bleeding, No anemia and No blood clots Neuro Neurologic: No system reviewed and no a (more content not included)... Normal [facility] Absolute lymphocyte countOrd ered By: Kaleigh Rosas on 06-18-2023 Lymphocytes Auto (Unsp spec) [#/Vol] 2.57 10*3/uL 0.83-4.51 [facility] Automated lymphocyte count a s percentage of total leukocytesOrdered By: Kaleigh Rosas on 06-18-2023 Lymphocytes/100 WBC Auto (Unsp spec) 34.6 % 19-41 [facility] Basophil percentageOrdered B y: Kaleigh Rosas on 06-18-2023 Basophils/100 WBC (Bld) 1.1 % 0-1 [facility] Bilirubin [Mass/Vol] 0.40 mg/dL 0.20-1.00 [facility] Comment on above: For patients on eltr ombopag therapy, use of Dimension [place] TBIL is not recommended. Chloride [Moles/Vol] 109 mmol/L 98-107 [facility] Cholesterol [Mass/Vol] 182 mg/dL <200 [facility] Comment on above: <200 mg/dL Desirable 200-240 mg/dL Borderline >240 mg/dL High Risk Eosinophils/100 WBC (Bld) 4.2 % 0-5 [facility] Glucose [Mass/Vol] 118 mg/dL 74-106 [facility] Comment on above: Fasting Glucose resu lt from 100 to 125 mg/dL suggests IMPAIRED HOMEOSTASIS per A.D.A. criteria. Hemoglobin (Bld) [Mass/Vol] 14.8 g/dL 12.0-15.0 [facility] Monocytes/100 WBC (Bld) 10.1 % 0-10 [facility] Neutrophils (Bld) [#/Vol] 3.7 10*3/uL 2.0-7.7 [facility] Neutrophils/100 WBC (Bld) 49.7 % 47-70 [facility] Potassium [Moles/Vol] 4.3 mmol/L 3.5-5.1 [facility] Protein [Mass/Vol] 7.9 g/dL 6.4-8.2 [facility] Sodium [Moles/Vol] 140 mmol/L 136-145 [facility] Triglyceride [Mass/Vol] 326 mg/dL <199 [facility] Comment on above: The drugs N-Acetylcy steine and Metamizole may falsely depress this assay.Serum Triglycerides Reference Interval Normal <150 mg/dL Borderline high 150 - 199 mg/dL High 200 - 499 mg/dL Very High > or = 500 mg/dL WBC (Bld) [#/Vol] 7.4 10*3/uL 4.4-11.0 [facility] Determination of erythrocyte mean corpuscular volume (MCV)Ordered By: Kaleigh Rosas on 06-18-2023 MCV (RBC) [Entitic vol] 105.3 fL 81-99 [facility] Erythrocyte distribution wid th ratioOrdered By: Kaleigh Rosas on 06-18-2023 Erythrocyte distribution width (RBC) [Ratio] 13.8 % 11.6-14.6 [facility] Erythrocyte distribution wid th standard deviationOrdered By: Kaleigh Rosas on 06-18-2023 Erythrocyte distribution width (RBC) [Entitic vol] 54.3 fL 35.1-43.9 [facility] Hematocrit Auto (Bld) [Volum e fraction]Ordered By: Kaleigh Rosas on 06-18-2023 Hematocrit (Bld) [Volume fraction] 45.9 % 37-47 [facility] Immature granulocytes/100 WB C Auto (Bld)Ordered By: Kaleigh Rosas on 06-18-2023 Immature granulocytes/100 WBC (Bld) 0.300 % 0.0-0.9 [facility] Comment on above: IG% - Immature Granu locytes (promyelocytes, myelocytes and metamyelocytes) > 1% indicates that a LEFT SHIFT is Present. Laboratory - Chemistry and C hemistry - challengeOrdered By: Kaleigh Rosas on 06-18-2023 Albumin/Globulin [Mass ratio] 0.9 {ratio} 0.9-2.4 [facility] ALP [Catalytic activity/Vol] 59 U/L 45-117 [facility] ALT [Catalytic activity/Vol] 33 U/L 13-56 [facility] Cholesterol in HDL [Mass/Vol] 70 mg/dL >40 [facility] Comment on above: The drugs N-Acetylcy steine and Metamizole may falsely depress this assay. Reference Range HDL <40 mg/dL Low HDL Cholesterol HDL >or= 60 mg/dL High HDL Cholesterol Cholesterol in LDL [Mass/Vol] 47 mg/dL 0-130 [facility] CO2 [Moles/Vol] 24.0 mmol/L 21.0-32.0 [facility] Globulin (S) [Mass/Vol] 4.2 g/dL 2.2-4.2 [facility] Magnesium [Mass/Vol] 2.2 mg/dL 1.6-2.6 [facility] Urea nitrogen/Creatinine [Mass ratio] 23.1 mg/mg 10-20 [facility] - Hematology and Cell countsOrdered By: Kaleigh Rosas on 06-18-2023 MCH (RBC) [Entitic mass] 33.9 pg 27.0-32.0 [facility] MCHC (RBC) [Mass/Vol] 32.2 g/dL 32-36 [facility] Nucleated RBC/100 WBC (Bld) [Ratio] 0 % 0-5 [facility] Platelet mean volume (Bld) [Entitic vol] 10.9 fL 6.2-12.0 [facility] Platelets (Bld) [#/Vol] 244 10*3/uL 150-450 [facility] No Panel InformationOrdered By: Kaleigh Rosas on 06-18-2023 Estimated GFR (MDRD) Amer 96 mL/min >60 [facility] Comment on above: GFR Calc Estimated GFR (MDRD) Non-Af Amer 79 mL/min >60 [facility] Comment on above: Non- GFR Calc VLDL Cholesterol 65 mg/dL 5-40 [facility] RBC Auto (Bld) [#/Vol]Ordere d By: Kaleigh Rosas on 06-18-2023 RBC (Bld) [#/Vol] 4.36 10*6/uL 4.2-5.4 [facility] Serum or plasma calcium riaz urement (mass/volume)Ordered By: Kaleigh Rosas on 06-18-2023 Calcium [Mass/Vol] 9.2 mg/dL 8.5-10.1 [facility] Serum or plasma creatinine m easurement (mass/volume)Ordered By: Kaleigh Rosas on 06-18-2023 Creatinine [Mass/Vol] 0.78 mg/dL 0.55-1.02 [facility] Comment on above: The validity of the calculated GFR & GFRAA in patients over 70 years has not been determined. Clinical correlation is essential. Serum or plasma urea nitroge n measurement (mass/volume)Ordered By: Kaleigh Rosas on 06-18-2023 Urea nitrogen [Mass/Vol] 18 mg/dL 7-18 [facility] Thin prep Papanicolaou smear with manual screeningOrdered By: Kaleigh Rosas on 06-18-2023 Thin prep Papanicolaou smear with manual screening 3.7 g/dL 3.2-5.0 [facility] Thin prep Papanicolaou smear with manual screening 30 U/L 15-37 [facility] Thin prep Papanicolaou smear with manual screening 7 5-15 [facility] Vital Signs Date Time Vital Sign Value Performing Clinician Ko gallardo 06-14-2024 13:27-0400 Body temperature 98 [degF] Dr. Kaleigh Rosas MD Work Phone: [facility] 06-14-2024 13:27-0400 Body weight 44.[address] Kaleigh Rosas MD Work Phone: [facility] 06-14-2024 13:27-0400 Diastolic blood pressure 93 mm[Hg] Dr. Kaleigh Rosas MD Work Phone: [facility] 06-14-2024 13:27-0400 Heart rate 71 /min Dr. Kaleigh Rosas MD Work Phone: [facility] 06-14-2024 13:27-0400 Respiratory rate 16 /min Dr. Kaleigh Rosas MD Work Phone: [facility] 06-14-2024 13:27-0400 SaO2% (BldA) [Mass fraction] 100 % Dr. Kaleigh Rosas MD Work Phone: [facility] 06-14-2024 13:27-0400 Systolic blood pressure 137 mm[Hg] Dr. Kaleigh Rosas MD Work Phone: [facility] 06-12-2024 14:09-0400 Diastolic blood pressure 66 mm[Hg] Dr. Kaleigh Rosas MD Work Phone: [facility] 06-12-2024 14:09-0400 Systolic blood pressure 120 mm[Hg] Dr. Kaleigh Rosas MD Work Phone: [facility] 05-15-2024 10:39-0500 Body height 157.[address] Kaleigh Rosas MD Work Phone: [facility] 05-15-2024 10:39-0500 Body mass index (BMI) [Ratio] 18.6 kg/m2 Dr. Kaleigh Rosas MD Work Phone: [facility] 05-15-2024 10:39-0500 Body temperature 97.5 [degF] Dr. Kaleigh Rosas MD Work Phone: [facility] 05-15-2024 10:39-0500 Body weight 46.[address] Kaleigh Rosas MD Work Phone: [facility] 05-15-2024 10:39-0500 Diastolic blood pressure 78 mm[Hg] Dr. Kaleigh Rosas MD Work Phone: [facility] 05-15-2024 10:39-0500 Heart rate 60 /min Dr. Kaleigh Rosas MD Work Phone: [facility] 05-15-2024 10:39-0500 Respiratory rate 16 /min Dr. Kaleigh Rosas MD Work Phone: [facility] 05-15-2024 10:39-0500 SaO2% (BldA) [Mass fraction] 97 % Dr. Kaleigh Rosas MD Work Phone: [facility] 05-15-2024 10:39-0500 Systolic blood pressure 144 mm[Hg] Dr. Kaleigh Rosas MD Work Phone: [facility] 06-16-2023 15:02-0400 Body height 158.[address] Kaleigh Rosas Work Phone: [facility] 06-16-2023 15:02-0400 Body mass index (BMI) [Ratio] 19.1 kg/m2 Dr. Kaleigh Rosas Work Phone: [facility] 06-16-2023 15:02-0400 Body temperature 97.3 [degF] Dr. Kaleigh Rosas Work Phone: [facility] 06-16-2023 15:02-0400 Body weight 48.[address] Kaleigh Rosas Work Phone: [facility] 06-16-2023 15:02-0400 Diastolic blood pressure 72 mm[Hg] Dr. Kaleigh Rosas Work Phone: [facility] 06-16-2023 15:02-0400 Heart rate 70 /min Dr. Kaleigh Rosas Work Phone: [facility] 06-16-2023 15:02-0400 Respiratory rate 16 /min Dr. Kaleigh Rosas Work Phone: [facility] 06-16-2023 15:02-0400 SaO2% (BldA) [Mass fraction] 98 % Dr. Kaleigh Rosas Work Phone: [facility] 06-16-2023 15:02-0400 Systolic blood pressure 122 mm[Hg] Dr. Kaleigh Rosas Work Phone: [facility] Encounters Encounter Date Encounter Type Care Provider Facility Start: 09-04-2024 ambulatory Toño Saltillo Facility:[facility] Start: 07-12-2024 End: 07-12-[address] Kaleigh Rosas MD Work Phone: [facility] Work Phone: Start: 07-12-2024 End: 07-12-[address] Kaleigh Rosas MD -Laboratory, [facility] Start: 07-12-2024 End: 07-12-2024 ambulatory Kaleigh Rosas Facility:[facility] Start: 06-14-2024 End: 06-14-2024 Patient encounter procedure Ute ENCINAS -[facility] Work Phone: Start: 06-14-2024 End: 06-14-2024 ambulatory Kaleigh Rosas Facility:[facility] Start: 06-12-2024 End: 06-12-[address] Kaleigh Rosas MD -[facility] Work Phone: Start: 06-12-2024 End: 06-12-2024 ambulatory Kaleigh Rosas Facility:[facility] Start: 06-09-2024 Non-patient / Non-visit Dr. Toño hays MD -[facility] Start: 06-09-2024 End: 06-09-[address] Kaleigh Rosas MD Work Phone: [facility] Work Phone: Start: 06-09-2024 End: 06-09-2024 Patient encounter procedure Ute ENCINAS -[facility] Work Phone: Start: 06-09-2024 End: 06-09-2024 ambulatory Kaleigh Rosas Facility:[facility] Start: 05-15-2024 End: 05-15-[address] Kaleigh Rosas MD -[facility] Work Phone: Start: 05-15-2024 End: 05-15-2024 ambulatory Kaleigh Rosas Facility:[facility] Start: 05-15-2024 End: 05-15-2024 ambulatory Kaleigh Rosas Facility:[facility] Start: 03-03-2024 End: 03-03-2024 Patient encounter procedure Baldo Tello DO -[facility] Work Phone: Start: 03-03-2024 End: 03-03-2024 ambulatory Baldo Tello Facility:[facility] Start: 01-17-2024 End: 01-17-2024 ambulatory Baldo Tello Facility:[facility] Start: 12-31-2023 End: 12-31-2023 ambulatory Eriberto ENCINAS Facility:[facility] Start: 12-19-2023 ambulatory Baldo Tello Facility :[facility] Start: 12-18-2023 End: 12-18-2023 ambulatory José Manuel Whiteside Facility:[facility] Start: 12-17-2023 End: 12-20-2023 ambulatory Samreen Dunham Facility:[facility] Start: 10-20-2023 End: 10-20-2023 ambulatory Kaleigh Rosas Facility:[facility] Start: 07-13-2023 Non-patient / Non-visit Dr. Juarez Work Phone: [facility] Start: 07-13-2023 End: 07-13-[address] Kaleigh Rosas Work Phone: [facility] Work Phone: Start: 07-13-2023 End: 07-13-[address] Kaleigh Rosas Work Phone: [facility]-Card[facility] Work Phone: Start: 06-18-2023 End: 06-18-[address] Kaleigh Rosas Work Phone: [facility] Work Phone: Start: 06-18-2023 End: 06-18-[address] Kaleigh Rosas Work Phone: [facility], [facility] Start: 06-16-2023 End: 06-16-[address] aKleigh Rosas Work Phone: [facility] Work Phone: Procedures Date Procedure Procedure Detail Performing Clinician Start: 03-03-2024 Dual energy X-ray absorptiometry Dr. Kaleigh Rosas MD Work Phone: Screening for malign ant neoplasm of cervix Z12.4 - Encounter for screening for malignant neoplasm of cervix Dr. Kaleigh Rosas MD Work Phone: Plan of Treatment Date Care Activity Detail Author Start: 05-15-2024 Patient referral [facility] Work Phone: Ankle brachial pressure index [facility] Ankle brachial pressure index [facility] Patient referral [facility] Work Phone: Tobacco use cessation education [facility] Tobacco use cessation education [facility] US Carotid arteries [facility] Immunizations Immunization Date Immunization Notes Care Provider Fa cili 06-05-2024 Pneumococcal Vaccine PCV20 (Prevnar 20) Dr. Kaleigh Rosas MD Work Phone: [facility] 05-15-2024 influenza, injectabl e, madin riccardo canine kidney, preservative free Dr. Kaleigh Rosas MD Work Phone: [facility] 04-16-2021 Covid (Pfizer) Dr. Kaleigh aparicio Work Phone: [facility] 07-12-2020 Covid (Pfizer) Dr. Kaleigh aparicio Work Phone: [facility] 06-21-2020 Covid (Pfizer) Dr. Kaleigh aparicio Work Phone: [facility] Payers Date Payer Category Payer Medicare [id number] 2024 Unknown [id number] 2023 Self-pay [id number] 2023 Unknown [id number] 2023 Unknown [id number] Unknown [facility] [id number] Unknown [id number] 2.16.8 40.1.502975.3.579.2.462 Unknown [id number] 2.16.8 40.1.117268.3.579.2.462 Unknown [id number] 2.16.8 40.1.119542.3.579.2.462 Unknown [id number] 2.16.8 40.1.333699.3.579.2.462 Unknown [id number] 2.16.8 40.1.056605.3.579.2.462 Unknown [id number] 2.16.8 40.1.190732.3.579.2.462 Unknown [id number] 2.16.8 40.1.546925.3.579.2.462 Unknown [id number] 2.16.8 40.1.794528.3.579.2.462 Unknown [id number] 2.16.8 40.1.814977.3.579.2.462 Unknown [id number] 2.16.8 40.1.820320.3.579.2.462 Unknown [id number] 2.16.8 40.1.398137.3.579.2.462 Unknown [id number] 2.16.8 40.1.117809.3.579.2.462 Unknown [id number] 2.16.8 40.1.479873.3.579.2.462 Unknown [id number] 2.16.8 40.1.486694.3.579.2.462 Unknown [id number] 2.16.8 40.1.933743.3.579.2.462 Unknown [id number] 2.16.8 40.1.880691.3.579.2.462 Unknown [id number] 2.16.8 40.1.333392.3.579.2.462 Unknown [id number] 2.16.8 40.1.033027.3.579.2.462 Unknown [id number] 2.16.8 40.1.372479.3.579.2.462 Unknown [id number] 2.16.8 40.1.454553.3.579.2.462 Unknown [id number] 2.16.8 40.1.148317.3.579.2.462 Unknown [id number] 2.16.8 40.1.795689.3.579.2.462 Unknown [id number] 2.16.8 40.1.586336.3.579.2.462 Unknown [id number] 2.16.8 40.1.949804.3.579.2.462 Unknown [id number] 2.16.8 40.1.221967.3.579.2.462 Unknown [id number] 2.16.8 40.1.660784.3.579.2.462 Social History Date Type Detail Facility Start: 06-16-2023 Tobacco smoking stat [facility] Unknown if ever smoked [facility] Start: 1960 Sex Assigned At Female [facility] Start: 06-14-2024 Tobacco smoking stat [facility] Current some day smoker [facility] Start: 06-20-2024 End: 07-17-2024 Sex Female (finding) [facility] Evaluation note 05-15-2024 Note Date & Type Note Facility 05-15-2024 Evaluation note Diagnosis Onset Date Resolution Essential hypertension acute Fe bruary 2024 10:31am Ileocolitis acute April 10:31am Osteoporosis acute April 10:31am PAD (peripheral artery disease) acute May 15, 025 10:31am High glucose level noneactive ry 2024 10:31am Immunization due noneactive May 15, 2024 10:31am Smokes cigarettes noneactive 2024 10:31am Screening for malignant neoplasm of cervix noneactive April 10:31am Essential hypertension acute [facility] 2024 2:02pm Carotid artery disease acute [facility] 2024 12:59pm PAD (peripheral artery disease) acute June 14, 2024 12:59pm [facility] Work Phone: Discharge summary note 12-20-2023 Note Date & Type Note Facility 12-20-2023 Note [facility] Medical Records Department [address] [place] [id number] Discharge Summary 12/20/23 1727 MR#: [id number] Acct: [id number] Name: AVIS PAYNE SUSY Rep #: [id number] : 1960 63 From: Igor Hdez MD PCP: Dr. Kaleigh Rosas MD Status:DIS IN Location: [facility] [id number] Providers Date of Admission: 12/17/23 Primary Care Physician: Dr. Kaleigh Rosas MD Consultations 12/17/23 01:55 Consult: General Surgery Routine Consulting Provider: Kesha Venegas Reason for Consult: Abd pain, ileocolitis, ? early appendicitis EMERGENT Consult: No Notified: Yes Date Notified: 12/17/23 Time Notified: 00:17 Method of Notification: Text 12/17/23 07:00 Consult: Gastroenterology Routine Consulting Provider: [facility] Reason for Consult: N/V/D, ileocolitis, ? crohns EMERGENT Consult: No Notified: Yes Date Notified: 12/17/23 Time Notified: 06:57 Method of Notification: Text Reason For Visit: N/V/D, ILEOCOLITIS Diagnosis Discharge Diagnosis (1) Ileocolitis: Status: Acute Code(s): K52.9 - Noninfective gastroenteritis and colitis, unspecified Medications at Discharge Home Medications B-complex with vitamin C 1 cap PO DAILY 06/16/23 calcium carbonate (Calcium 600) 600 mg PO DAILY 06/16/23 potassium chloride 20 mEq oral packet 20 meq PO DAILY 06/16/23 aspirin 81 mg tablet,delayed release (Adult Aspirin Regimen) 81 mg PO DAILY #30 tabs 07/29/23 ibuprofen 200 mg tablet 400 mg PO Q6H PRN pain 07/29/23 lisinopril 10 mg tablet 10 mg PO DAILY #90 tabs 09/23/23 rosuvastatin 20 mg tablet 20 mg PO DAILY #30 tabs 10/20/23 amoxicillin 875 mg-potassium clavulanate 125 mg tablet 1 tab PO Q12H #14 tabs 12/20/23 Hospital Course Operations None Procedures Colonoscopy Summary of Care Provided Minutes Spent on Discharge: 33 Hospital Course: Per HPI: The patient is a 63 y/o F w/ PMHx: Tobacco use, Heavy EtOH use/EtOH abuse, HTN, CKD stage II per GFR trending, Known L carotid bruit w/ pending carotid US outpatient, RLE PAD, Gout, Severe protein calorie malnutrition who presents to the [facility] ED initially on 12/16/23 with history of abdominal discomfort with intermittent diarrhea over the last week awaking on morning on day prior with pain which is since worsened with associated nausea and emesis more tender in the bilateral lower quadrants with no rebound or guarding prompting eventual ED evaluation to be cautious. Patient reporting pain 7/10 in severity and noted to have initially reported 8/10 in severity initially upon ED arrival. Workup in the ED included T98.7, heart rate 87, BP 193/95, respiratory rate 18, 90% on room air with transient heart rate increased to 121 with most recent repeat vitals heart rate 98, BP 112/81, respiratory rate 30, 96% on room air, CBC with WBC 15.8, human 13.1, platelet 232 with left shift, CMP with BUN/creatinine 20/0.86, GFR 70, glucose 110, hepatic profile not marked appearing, lipase 27, lactic acid initial 3.6 with repeat lactic acid 1.1, urinalysis not marked appearing, CT abdomen and pelvis with contrast with concentric thickening of the delgado of multiple loops of mid to distal small bowel with thickening of the folds in association with an a hostile appearance of the ascending and transverse colon consistent possibly with ileocolitis with mild diffuse mesenteric edema and a small amount of ascites within the right paracolic gutter, mild dilatation of the appendix and possibility of early changes of acute appendicitis cannot be entirely excluded. In the ED patient ministered 2 L normal saline, morphine 4 mg IV x 2, Zofran 4 mg IV x 1 as well as IV Zosyn. Per discussion with ED they did review imaging also with Radiology directly and went over all the vasculature to assure no concerns given her PAD history. Hospital Course: #1. N/V/D with associated abdominal discomfort with CT scan concerning for ileocolitis with diffuse mesenteric edema and small amount of ascites with mild dilatation of the appendix and concern for possibility of acute appendicitis with initial lactic acidosis, improved in the ED with IV fluids, possibility of underlying IBD: Will admit to medical surgical floor, will maintain on IV fluids, will obtain C. difficile and enteric pathogens to be cautious, will obtain COVID PCR also be cautious, will continue IV Zosyn therapy, will continue to trend CBC and CMP, will have pain regimen and as needed antiemetic regimen, will maintain on IV PPI, will maintain on clear liquids until clinically improving with transition once improving, given concern on read for possibility of Crohn's disease will request gastroenterology involvement but will defer usage of steroids initially pending evaluation, will continue surgery consultation initiated per ED given concern for possibility of early appendicitis also. 12/18/2023: Co (more content not included)... [facility] Chief complaint+Reason for visit Narrative Note Date & Type Note Facility Chief complaint+Reason for visit Narrative Reason for Visit Screening declined b y patient Immunization declined Screening for diabetes mellitus Pain of left heel Smokes cigarettes Screening for cardiovascular condition Establishing care with new doctor, encounter for Seborrheic keratoses Right calf pain Bunion, right foot [facility] Work Phone: Evaluation note Note Date & Type Note Facility Evaluation note Diagnosis Onset Date Screening declined by patient noneactive Immunization declined noneac tive Screening for diabetes mellitus noneactive Pain of left heel noneactive Smokes cigarettes noneactive Screening for cardiovascular condition noneactive Establishing care with new d octor, encounter for noneactive Seborrheic keratoses noneact becky Right calf pain noneactive Bunion, right foot noneactiv e [facility] Work Phone: Family History No Family History Records Found Relationship Condition Age at Onset Recorded Date/T kristyn grandmother Diabetes mellitus Unknown mother Kidney disorder Unknown Cardiac disease Unknown father Cardiac disease Unknown Chief Complaint and Reason for Visit Chief Complaint 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 SENT PAIN IN RIGHT LOWER LEG Reason for Visit Screening declined b y patient Immunization declined Screening for diabetes mellitus Pain of left heel Smokes cigarettes Screening for cardiovascular condition Establishing care with new doctor, encounter for Seborrheic keratoses Right calf pain Bunion, right foot Chief Complaint Admit Date OSTEO March 03, 2024 1 1:26am OSTEOPOROSIS CHECK May 15, 2024 10:31am LEFT CAROTID BRUIT June 09, 2024 2:4 7pm bp chk June 12, 2024 2:0 2pm Discuss US and procedure June 14 12:59pm Reason for Visit Admit Date Essential hypertension May 15 10:31am Ileocolitis May 15, 2024 10:31am Osteoporosis May 15, 2024 10:31am PAD (peripheral artery disease) May 15, 2024 10:31am High glucose level May 15, 2024 10:31am Immunization due May 15, 2024 10:31am Smokes cigarettes May 15, 2024 10:31am Screening for malignant neoplasm of cerv ix May 15, 2024 10:31am Essential hypertension June 12, 2024 2:02pm Carotid artery disease June 14, 2024 12:59pm PAD (peripheral artery disease) June 142024 12:59pm Chief Complaint Admit Date OSTEOPOROSIS CHECK May 15, 2024 10:31am LEFT CAROTID BRUIT June 09, 2024 2:4 7pm bp chk June 12, 2024 2:0 2pm Discuss US and procedure June 14 12:59pm Advance Directives No Advanced Directives Records Found Advance Directive Response Recorded Date/ Time Living Will No December 17, 2023 2:25am Do you have a Healthcare Power of Investment Banking Associate? No December 17, 2023 2:25am Summary Purpose Additional Source Comments Care Teams (unrecognized sec tion and content) Team Status: Active Member Role Status Dates Rosie Barkley Family Provider Active Dr. Kaleigh Rosas MD Primary Care Provider Active Team Status: Inactive Member Role Status Dates Dr. Kaleigh Rosas MD Primary Care Pro vider, Attending Provider, Referring Provider Active Team Status: Active Member Role Status Dates Dr. Kaleigh Rosas MD Primary Care Provider Active Dr. Toño Michele MD Attending Provider Active Team Status: Active Member Role Status Dates Dr. Kaleigh Rosas MD Primary Care Provider Active Team Status: Inactive Member Role Status Dates Dr. Kaleigh Rosas MD Primary Care Provider Active Start: March 03, 2024 End: March 03, 2024 Dr. Baldo Tello DO Attending Provider Active Start: March 03, 2024 End: March 03, 2024 Dr. Baldo Tello DO Referring Provider Active Start: March 03, 2024 End: March 03, 2024 Team Status: Inactive Member Role Status Dates Dr. Kaleigh Rosas MD Primary Care Provider Active Start: May 15, 2024 End: May 15, 2024 Dr. Kaleigh Rosas MD Attending Provider Active Start: May 15, 2024 End: May 15, 2024 Dr. Kaleigh Rosas MD Referring Provider Active Start: May 15, 2024 End: May 15, 2024 Team Status: Inactive Member Role Status Dates Dr. Kaleigh Rosas MD Primary Care Provider Active Start: June 09, 2024 End: June 09, 2024 HUANG Russell Attending Provider Active Star t: June 09, 2024 End: June 09, 2024 HUANG Russell Referring Provider Active Star t: June 09, 2024 End: June 09, 2024 Team Status: Active Member Role Status Dates Dr. Kaleigh Rosas MD Primary Care Provider Active Start: June 09, 2024 Dr. Toño Michele MD Attending Provider Active S tart: June 09, 2024 Team Status: Inactive Member Role Status Dates Dr. Kaleigh Rosas MD Primary Care Provider Active Start: June 12, 2024 End: June 12, 2024 Dr. Kaleigh Rosas MD Attending Provider Active Start: June 12, 2024 End: June 12, 2024 Dr. Kaleigh Rosas MD Referring Provider Active Start: June 12, 2024 End: June 12, 2024 Team Status: Inactive Member Role Status Dates Dr. Kaleigh Rosas MD Primary Care Provider Active Start: June 14, 2024 End: June 14, 2024 Dr. Kaleigh Rosas MD Referring Provider Active Start: June 14, 2024 End: June 14, 2024 HUANG Russell Attending Provider Active Star t: June 14, 2024 End: June 14, 2024 Team Status: Active Member Role Status Dates Dr. Kaleigh Rosas MD Primary Care Provider Active Start: June 09, 2024 Dr. Toño Michele MD Attending Provider Active S tart: June 09, 2024 HUANG Russell Referring Provider Active Star t: June 09, 2024 Team Status: Inactive Member Role Status Dates Dr. Kaleigh Rosas MD Primary Care Provider Active Start: July 12, 2024 End: July 12, 2024 Dr. Kaleigh Rosas MD Attending Provider Active Start: July 12, 2024 End: July 12, 2024 Dr. Kaleigh Rosas MD Referring Provider Active Start: July 12, 2024 End: July 12, 2024 Goals (unrecognized section and content) Goals may be documented in a n alternate sectionGoals may be documented in an alternate sectionGoals may be documented in an alternate sectionGoals may be documented in an alternate section INFORMATION SOURCE (unrecogn ized section and content) DATE CREATED AUTHOR 09/04/2024 [facility] FOR RECORDS PERTAINING TO PATIENTS WHO ARE OR HAVE BEEN ENROLLED IN A CHEMICAL DEPENDENCY/SUBSTANCEABUSE PROGRAM, SOME INFORMATION MAY BE OMITTED. This clinical summary was aggregated from multiple sources. Caution should be exercised in using it in the provision of clinical care. This summary normalizes information from multiple sources, and as a consequence, information in this document may materially change the coding, format and clinical context of patient data. In addition, data may be omitted in some cases. CLINICAL DECISIONS SHOULD BE BASED ON THE PRIMARY CLINICAL RECORDS. [facility]. provides no warranty or guarantee of the accuracy or completeness of information in this document.
== END | disposition home or self-care (01) ==
LOC: CVS 09:47
PROVIDERS: PCP Internal Medicine; Referring Provider Physician Assistant; Visit Provider Physician Assistant
DX: I73.9 Peripheral vascular disease, unspecified (principal)
CPT/HCPCS: 93923

== ENCOUNTER → 2024-10-19 | Outpatient (CLI) | payer MEDICARE, SELFPAY ==
--- NOTE | 2024-10-19 16:25 | CT_ITS ---
PROCEDURE: ABDOMEN/PELVIS WITH CONTRAST 10/19/2024 REASON FOR EXAM: RLQ ABD PAIN TECHNIQUE: ABDOMEN/PELVIS WITH CONTRAST Coronal and Sagittal reconstruction series were provided. CONTRAST: Isovue-300 VOLUME: 75 mL One or more dose reduction techniques were used (e.g., Automated exposure control, adjustment of the mA and/or kV according to patient size, use of iterative reconstruction technique. RADIATION DOSE SUMMARY: CTDlvol: 14.27 mGy DLP: 236.93 mGycm COMPARISON: Abdominal CT 12/16/2023 FINDINGS: Lung bases: Clear. 1.5 cm right basilar calcified granuloma. Liver: No significant abnormality. Gallbladder: Unremarkable. No biliary ductal dilatation. Spleen: Normal size and morphology. Pancreas: Unremarkable. Adrenals: Unremarkable. Kidneys: Unremarkable. No urolithiasis or hydroureteronephrosis. Bladder: Unremarkable. Reproductive Organs: Hyperenhancing uterine fibroid measuring up to roughly 20 mm, no significant change. Unremarkable adnexae. Bowel: Unremarkable stomach and small bowel. Enteric contrast propagates to the hepatic flexure of the colon with no evidence of obstruction. Localized inflammatory changes at the base of the cecum and surrounding the appendix, which is mildly distended and fluid-filled with hyperenhancing delgado, which may represent acute appendicitis or other inflammatory process such as cecal colitis or diverticulitis in close proximity to the appendix. No evidence of perforation. Mild distal colonic diverticulosis without evidence for active diverticulitis/colitis in the remainder of the colon. Lymph nodes: No suspicious lymph node enlargement. Vasculature: Abdominal aorta is tortuous but normal in caliber. Moderate atherosclerotic disease. Peritoneum / Retroperitoneum: No ascites or free air. Bones: Multilevel spondylotic changes of the visualized spine, with moderate lumbar levoscoliosis and degenerative grade 2 anterolisthesis of L4 on L5. CT/Abdomen/Pelvis WITH Contrast IMPRESSION: Inflammatory changes at the base of the cecum and involving the appendix, which may represent acute appendicitis or possibly a localized cecal colitis/diverticulitis. No evidence for perforation. Reading Location: [facility]
== END | disposition home or self-care (01) ==
PROVIDERS: PCP Internal Medicine
DX: K52.9 Noninfective gastroenteritis and colitis, unspecified (principal)
CPT/HCPCS: 74177; Q9967

== ENCOUNTER → 2024-10-23 | Outpatient (CLI) | payer MEDICARE, SELFPAY ==
[2024-10-25 17:08] LABS: HPV APTIMA, High Risk Negative (Negative)
== END | disposition home or self-care (01) ==
LOC: LABSPEC 10:36
PROVIDERS: PCP Internal Medicine; Visit Provider Nurse Practitioner Women's Health
DX: Z12.4 Encounter for screening for malignant neoplasm of cervix (principal)
CPT/HCPCS: 87624; 88175; G0145